=== PATIENT | male | born 1955 | race Hispanic/Latino ===

== ENCOUNTER → 2018-03-04 | Outpatient (CLI) | payer MEDICARE, OTHER ==
[~2018-03-04] MED LIST: ASPIR 8181 MG PO; ASPIRIN EC81 MG PO; CLOPIDOGREL75 MG PO; DIOVAN80 MG PO; FENOFIBRATE145 MG PO; GABAPENTIN400 MG PO; LANTUS100 UNIT/1 SC; LANTUS100 UNITS/ SQ; LYRICA150 MG PO; NATEGLINIDE120 MG PO; NIFEDIPINE ER30 M1 PO; NOVOLOG MI100 UNITS/ SQ; OMEGA 3 1,0001 EACH PO; OMEGA-31000 MG PO; PENTOXIFYLLINE400 MG PO; PROTONIX40 MG/ML PO; STARLIX120 MG PO; TRICOR48 MG PO; TUMS300 MG PO; VITAMIN E400 UNI2 PO; ZESTRIL10 MG PO; [UNRECOGNIZED DRUG - OTHER]; [UNRECOGNIZED DRUG - OTHER] PO; [UNRECOGNIZED DRUG - OTHER] PO
--- NOTE | 2018-03-04 14:19 | Diagnostic Imaging Report ---
Exam: Right foot series, 3 views. Clinical History: Pressure ulcer in right heel Comparison: None. Findings: 3 views of the right foot. There is normal bone mineralization. Negative for acute, displaced fracture or dislocation. No cortical erosion or destruction. Degenerative changes in the hindfoot/midfoot joints. Extensive vascular calcifications. Soft tissue defect in the posterior aspect of the heel, likely representing the known ulceration. Moderate anterior calcaneal enthesophyte. Impression: 1. Soft tissue defect in the posterior aspect of the heel likely represents the known ulceration. Adjacent bony structures are intact. No cortical destruction or erosion to suggest osteomyelitis. 2. Extensive vascular calcifications. Signed by: Dr. Trent Bush M.D. on 03/04/2018 2:15 PM
== END ==
LOC: RAD 12:40
PROVIDERS: ATTEND Family Medicine Adult Medicine
DX: L89.610 Pressure ulcer of right heel, unstageable (principal)

== ENCOUNTER 2018-03-11 13:00 | Outpatient (RCR) | payer MEDICARE, OTHER | END 2018-03-19 | LOC: WCC 13:00 | PROVIDERS: ATTEND Family Medicine Adult Medicine | DX: E11.65 Type 2 diabetes mellitus with hyperglycemia (principal); E11.40 Type 2 diabetes mellitus with diabetic neuropathy, unspecified; E11.621 Type 2 diabetes mellitus with foot ulcer; L89.610 Pressure ulcer of right heel, unstageable; L97.528 Non-pressure chronic ulcer of other part of left foot with other specified severity; I79.8 Other disorders of arteries, arterioles and capillaries in diseases classified elsewhere; H54.8 Legal blindness, as defined in USA; N18.6 End stage renal disease; I10 Essential (primary) hypertension; E78.00 Pure hypercholesterolemia, unspecified | CPT/HCPCS: 36415; 82948 ==

== ENCOUNTER 2018-07-22 12:05 | Inpatient (IN) | payer MEDICARE, OTHER ==
[~2018-07-22] VITALS: Ht 177.8 cm; Wt 106.3 kg
--- OUTSIDE RECORDS SUMMARY | 2018-07-22 12:07 | XMS REPORT | Clinical Summary ---
Author Author [facility] Address Unknown Phone Unavailable Care Team Providers Care Lang Interpreter Name Role Phone Zuhair Ellis PCP Allergies Comments Active Allergy Reactions Severity Noted Date bandaids Adhesive Other (See High 08/06/2012 Comments) Medications End Date Status Medication Sig Dispensed Refills Start Date Active insulin glargine (LANTUS) Inject 12 0 100 unit/mL injection Units subcutaneousl y nightly Pt states that he uses 12-20 units based upon his BS and diet. Active sevelamer (RENVELA) 800 Take 3,200 mg 0 mg tablet by mouth 3 (three) times daily with meals Taking 3 with each meal and 1 with snack. Active nateglinide (STARLIX) 120 Take 120 mg 0 MG tablet by mouth 3 (three) times daily before meals. Active gabapentin (NEURONTIN) Take 300 mg 0 300 MG capsule by mouth daily . Active aspirin 81 MG EC tablet Take 81 mg by 0 mouth daily. Active OMEGA-3/DHA/EPA/FISH OIL Take 1 g by 0 (FISH OIL-OMEGA-3 FATTY mouth 2 (two) ACIDS) 300-1,000 mg times daily . capsule Active valsartan (DIOVAN) 80 MG Take 160 mg 0 tablet by mouth daily as needed (Only takes about once a week if/when the BP is greater than 150 systolic) . Active insulin aspart (NOVOLOG) Inject 10 0 100 unit/mL InPn Units subcutaneousl y 2 (two) times daily Pt reports that he only takes from 8-15 units based upon the BS. Active cholecalciferol (VITAMIN Take 1,000 0 D3) 1,000 unit tablet Units by mouth daily. Active pantoprazole (PROTONIX) Take 40 mg by 0 40 MG tablet mouth daily. Active pentoxifylline (TRENTAL) Take 400 mg 0 400 mg CR tablet by mouth 3 (three) times daily with meals. Active fenofibrate (TRICOR) 48 Take 48 mg by 0 MG tablet mouth daily. 09/08/2017 Discontinued ciprofloxacin HCl (CIPRO) Take 500 mg 0 500 MG tablet by mouth 2 (two) times daily. 09/08/2017 Discontinued clopidogrel (PLAVIX) 300 Take 75 mg by 0 mg Tab mouth once. Active Problems Problem Noted Date Pre-transplant evaluation for chronic kidney disease 12/02/2016 Last Assessment & Plan: He is an acceptable candidate for kidney transplant. Kidney will have to be placed on the right secondary to his extensive vascular disease on the left. The left great big toe is healed but still appears to be a chronic callus. Peripheral artery disease 05/05/2016 Last Assessment & Plan: Continue outpatient with podiatry for SOURAV. Ischemic ulcer diabetic foot 05/05/2016 Overview: Left great toe neuro-ischemic ulcer Obese 01/22/2016 Overview: Needs to reduce weight to target weight of 240 with improved diet and exercise. L ast Assessment & Plan: He was encouraged to monitor his intake and to exercise as tolerated. CAD (coronary artery disease) 06/28/2015 Last Assessment & Plan: Patient needs a CTA to evaluate for runoffs once he achieves his weight goal. He will also be at increased risk of bleeding because he is on Plavix. ESRD (end stage renal disease) Last Assessment & Plan: ESRD secondary to DM/HTN. He has required hemodialysis for 6 years and does not produce urine. DM (diabetes mellitus) Last Assessment & Plan: Diabetes management per primary care physician. Retinopathy HTN (hypertension) Last Assessment & Plan: Continue current management. PAD (peripheral artery disease) Retinopathy Encounters Care Team Description Date Type Specialty Lindsey Arroyo RN Waitlist Maintenance 05/10/2018 Telephone Transplant Lindsey Arroyo RN Waitlist Maintenance 03/03/2018 Telephone Transplant Lindsey Arroyo RN Waitlist Maintenance 12/28/2017 Telephone Transplant Lindsey Arroyo RN 10/15/2017 Documentation Transplant OCleopatra Montgomery MD ESRD (end stage renal disease) (HCC); Patient awaiting renal transplant; Type 2 diabetes mellitus with other kidney complication, unspecified usp insulin use status (HCC) 10/14/2017 Orders Only Lab Maylin Sandoval MD 10/10/2017 Orders Only Cleopatra Vergara MD ESRD (end stage renal disease) (HCC); Patient awaiting renal transplant; Type 2 diabetes mellitus with other kidney complication, unspecified usp insulin use status (HCC) 09/08/2017 Orders Only Transplant Hepatology Iliana Garcia MD Etheridge, Whitson B., MD ESRD (end stage renal disease) (HCC) (Primary Dx) 09/08/2017 Evaluation Transplant Iliana Garcia MD Encounter for preprocedural cardiovascular examination ; ESRD (end stage renal disease) (HCC); Patient awaiting renal transplant; Type 2 diabetes mellitus with other kidney complication, unspecified local intermodal truck driver insulin use status (HCC) 09/08/2017 Hospital Radiology Encounter Cleopatra Vergara MD ESRD (end stage renal disease) (HCC); Patient awaiting renal transplant; Type 2 diabetes mellitus with other kidney complication, unspecified usp insulin use status (HCC) 09/03/2017 Orders Only Lab ESRD (end stage renal disease) (HCC) (Primary Dx); Patient awaiting renal transplant; Type 2 diabetes mellitus with other kidney complication, unspecified local intermodal truck driver insulin use status (HCC) 08/18/2017 Orders Only Lab Xu, Eda 08/11/2017 Documentation Transplant Lindsey Arroyo RN 08/03/2017 Orders Only Transplant Xu, Eda 07/29/2017 Documentation Transplant Lindsey Arroyo, RN ESRD (end stage renal disease) (HCC) (Primary Dx); Patient awaiting renal transplant; Type 2 diabetes mellitus with other kidney complication, unspecified usp insulin use status (HCC); Encounter for preprocedural cardiovascular examination 07/27/2017 Orders Only Transplant Harshil Bhatt MD 07/27/2017 Lab Requisition Lab Harshil Bhatt MD 07/23/2017 Lab Requisition Lab after 07/21/2017 Social History Date Tobacco Use Types Packs/Day Years Used Quit: 04/22/2003 Former Smoker Smokeless Tobacco: Never Used Alcohol Use Drinks/Week oz/Week Comments No Sex Assigned at Date Recorded Not on file Industry Job Start Date Occupation Not on file Not on file Not on file Travel End Travel History Travel Start No recent travel history available. Last Filed Vital Signs Time Taken Vital Sign Reading 09/08/2017 2:59 PM GLASS CHECKER Blood Pressure 159/75 09/08/2017 2:59 PM GLASS CHECKER Pulse 76 09/08/2017 2:59 PM GLASS CHECKER Temperature 36.7 C (98.1 F) 09/08/2017 2:59 PM GLASS CHECKER Respiratory Rate 18 - Oxygen Saturation - - Inhaled Oxygen - Concentration 09/08/2017 2:59 PM GLASS CHECKER Weight 110.9 kg (244 lb 9.6 oz) 09/08/2017 2:59 PM GLASS CHECKER Height 177.2 cm (5' 9.75") 09/08/2017 2:59 PM GLASS CHECKER Body Mass Index 35.35 Plan of Treatment Health Maintenance Due Date Last Done Comments INFLUENZA VACCINE 04/19/2018 Implants Device Identifier Shelf Expiration Date Model / Serial / Lot Implanted Type Area Manufactur er 09/16/2017 [id number] / / [id number] Closure Sys Perclose Progl 6fr Cardiovasc SWEENEY [id number] - [id number] sara LAB:VASC Implanted: Qty: 1 on 03/27/2016 by Blanquita Dozier MD 09/16/2017 [id number] / / [id number] Device Clsr Angio-Seal Vip 6fr Cardiovasc N/A: Groin ST RAMESH [id number] - [id number] [id number] MED:CARDIA Implanted: Qty: 1 on 11/20/2016 by Blanquita Mckeon MD 09/06/2017 [id number] - 12 / / [id number] Xience Alpine Otw [employer] Implanted: Qty: 1 on 06/28/2015 VASCULAR DEVICE Procedures Comments Procedure Name Priority Date/Time Associated Diagnosis VIRTUAL CROSSMATCH Routine 10/14/2017 ESRD (end stage renal 1:13 PM CDT disease) (HCC) Patient awaiting renal transplant Type 2 diabetes mellitus with other kidney complication, unspecified local intermodal truck driver insulin use status CRSMTCH FLOW 3 SERUM Routine 10/14/2017 ESRD (end stage renal 1:13 PM CDT disease) (HCC) Patient awaiting renal transplant Type 2 diabetes mellitus with other kidney complication, unspecified local intermodal truck driver insulin use status CRSMTCH SEROLOGY FV 3 Routine 10/14/2017 ESRD (end stage renal 1:13 PM CDT disease) (HCC) Patient awaiting renal transplant Type 2 diabetes mellitus with other kidney complication, unspecified usp insulin use status AB SPECIFICITY CLASS I Routine 10/14/2017 ESRD (end stage renal 7:36 AM CDT disease) (HCC) Patient awaiting renal transplant Type 2 diabetes mellitus with other kidney complication, unspecified usp insulin use status FLOW PRA CLASS II WITH Routine 10/14/2017 ESRD (end stage renal REFLEX TO ANTIBODY 7:36 AM CDT disease) (HCC) SPECIFICITY Patient awaiting renal transplant Type 2 diabetes mellitus with other kidney complication, unspecified local intermodal truck driver insulin use status FLOW PRA CLASS I WITH Routine 10/14/2017 ESRD (end stage renal REFLEX TO ANTIBODY 7:36 AM CDT disease) (HCC) SPECIFICITY Patient awaiting renal transplant Type 2 diabetes mellitus with other kidney complication, unspecified usp insulin use status AB SPECIFICITY CLASS I Routine 09/08/2017 ESRD (end stage renal 2:33 PM GLASS CHECKER disease) (HCC) Patient awaiting renal transplant Type 2 diabetes mellitus with other kidney complication, unspecified local intermodal truck driver insulin use status (HCC) PSA Routine 09/08/2017 ESRD (end stage renal 2:33 PM GLASS CHECKER disease) (HCC) Patient awaiting renal transplant Type 2 diabetes mellitus with other kidney complication, unspecified local intermodal truck driver insulin use status (HCC) FLOW PRA CLASS II WITH Routine 09/08/2017 ESRD (end stage renal REFLEX TO ANTIBODY 2:33 PM GLASS CHECKER disease) (HCC) SPECIFICITY Patient awaiting renal transplant Type 2 diabetes mellitus with other kidney complication, unspecified usp insulin use status (HCC) FLOW PRA CLASS I WITH Routine 09/08/2017 ESRD (end stage renal REFLEX TO ANTIBODY 2:33 PM GLASS CHECKER disease) (HCC) SPECIFICITY Patient awaiting renal transplant Type 2 diabetes mellitus with other kidney complication, unspecified local intermodal truck driver insulin use status (HCC) NM CARDIAC PET PERFUSION Routine 09/08/2017 Encounter for REST AND/OR STRESS 2:12 PM GLASS CHECKER preprocedural cardiovascular examination ESRD (end stage renal disease) (HCC) Patient awaiting renal transplant Type 2 diabetes mellitus with other kidney complication, unspecified local intermodal truck driver insulin use status (HCC) TREADMILL Routine 09/08/2017 TOLERANCE(NON-NUCLEAR 1:55 PM GLASS CHECKER TREADMILL) FLOW PRA CLASS II WITH Routine 09/03/2017 ESRD (end stage renal REFLEX TO ANTIBODY 10:23 AM GLASS CHECKER disease) (HCC) SPECIFICITY Patient awaiting renal transplant Type 2 diabetes mellitus with other kidney complication, unspecified usp insulin use status (HCC) FLOW PRA CLASS I WITH Routine 09/03/2017 ESRD (end stage renal REFLEX TO ANTIBODY 10:23 AM GLASS CHECKER disease) (HCC) SPECIFICITY Patient awaiting renal transplant Type 2 diabetes mellitus with other kidney complication, unspecified usp insulin use status (HCC) CRSMTCH FLOW 3 SERUM Routine 09/03/2017 ESRD (end stage renal 10:23 AM GLASS CHECKER disease) (HCC) Patient awaiting renal transplant Type 2 diabetes mellitus with other kidney complication, unspecified local intermodal truck driver insulin use status (HCC) CRSMTCH SEROLOGY FV 3 Routine 09/03/2017 ESRD (end stage renal 10:23 AM GLASS CHECKER disease) (HCC) Patient awaiting renal transplant Type 2 diabetes mellitus with other kidney complication, unspecified local intermodal truck driver insulin use status (HCC) AB SPECIFICITY CLASS I Routine 09/03/2017 ESRD (end stage renal 8:38 AM GLASS CHECKER disease) (HCC) Patient awaiting renal transplant Type 2 diabetes mellitus with other kidney complication, unspecified usp insulin use status (HCC) CRSMTCH FLOW 3 SERUM Routine 08/19/2017 ESRD (end stage renal 5:45 AM GLASS CHECKER disease) (HCC) Patient awaiting renal transplant Type 2 diabetes mellitus with other kidney complication, unspecified usp insulin use status (HCC) CRSMTCH SEROLOGY FV 3 Routine 08/19/2017 ESRD (end stage renal 5:45 AM GLASS CHECKER disease) (HCC) Patient awaiting renal transplant Type 2 diabetes mellitus with other kidney complication, unspecified local intermodal truck driver insulin use status (HCC) CRSMTCH FLOW 3 SERUM Routine 08/18/2017 ESRD (end stage renal 12:09 PM GLASS CHECKER disease) (HCC) Patient awaiting renal transplant Type 2 diabetes mellitus with other kidney complication, unspecified usp insulin use status (HCC) CRSMTCH SEROLOGY FV 3 Routine 08/18/2017 ESRD (end stage renal 12:09 PM GLASS CHECKER disease) (HCC) Patient awaiting renal transplant Type 2 diabetes mellitus with other kidney complication, unspecified usp insulin use status (HCC) FLOW PRA CLASS II WITH Routine 08/18/2017 ESRD (end stage renal REFLEX TO ANTIBODY 12:09 PM GLASS CHECKER disease) (HCC) SPECIFICITY Patient awaiting renal transplant Type 2 diabetes mellitus with other kidney complication, unspecified usp insulin use status (HCC) FLOW PRA CLASS I WITH Routine 08/18/2017 ESRD (end stage renal REFLEX TO ANTIBODY 12:09 PM GLASS CHECKER disease) (HCC) SPECIFICITY Patient awaiting renal transplant Type 2 diabetes mellitus with other kidney complication, unspecified local intermodal truck driver insulin use status (HCC) CRSMTCH FLOW 3 SERUM Routine 08/18/2017 ESRD (end stage renal 12:07 PM GLASS CHECKER disease) (HCC) Patient awaiting renal transplant Type 2 diabetes mellitus with other kidney complication, unspecified local intermodal truck driver insulin use status (HCC) CRSMTCH SEROLOGY FV 3 Routine 08/18/2017 ESRD (end stage renal 12:07 PM GLASS CHECKER disease) (HCC) Patient awaiting renal transplant Type 2 diabetes mellitus with other kidney complication, unspecified local intermodal truck driver insulin use status (HCC) AB SPECIFICITY CLASS I Routine 08/18/2017 ESRD (end stage renal 6:19 AM GLASS CHECKER disease) (HCC) Patient awaiting renal transplant Type 2 diabetes mellitus with other kidney complication, unspecified usp insulin use status (HCC) CRSMTCH FLOW 3 SERUM Routine 07/21/2017 12:00 PM GLASS CHECKER CRSMTCH SEROLOGY FV 3 Routine 07/21/2017 12:00 PM GLASS CHECKER after 07/21/2017 Results * CRSMTCH SEROLOGY FV 3 (10/14/2017 1:13 PM CDT) Only the most recent of 6 results within the time period is included. CDC-XM FV1 AHG AHG [facility] TEST[facility] CDC-XM FV1 AHG RES Neg [facility] CDC-XMFV1 AHG/DTT [facility] TEST[facility] CDC-XMFV1 AHG/DTT RES [facility] TEST[facility] CDC-XM FV2 AHG AHG [facility] TEST[facility] CDC-XM FV2 AHG RES Neg [facility] TEST[facility] CDC-XMFV2 AHG/DTT [facility] CDC-XMFV2 AHG/DTT RES [facility] TEST[facility] CDC-XM FV3 AHG AHG [facility] CDC-XM FV3 AHG RES Neg [facility] CDC-XMFV3 AHG/DTT [facility] CDC-XMFV3 AHG/DTT RES [facility] Crsmtch Serology FV 3 DD [facility] XM: NEGATIVE [facility] Comment UNOS ID [id number] [facility] Donor Name [id number], DD-LOCAL [facility] Specimen Blood Performing Organization Address City/State/Zipcode Phone Number [facility] [address], [address]: [id number], [place] [address] CLIA#[id number] CAP#[id number] UNOS#[id number] [facility] ONE [address], MS: [id number] [place] [address] * VIRTUAL CROSSMATCH (10/14/2017 1:13 PM CDT) [facility] Potential LA [facility] Donor HLA Result A1 A24; B62 B57; Cw9 Cw6; DR7 [facility] DR14; DR52; DQA1*01, 02; DQ9 DQ5; DPA1*01,01; DPB1*02:01, DPB1*04:01 VX DSA (MFI) DSA and MFI [facility] DSA and MFI Result NO DSA FOUND [facility] Virtual XM Virtual XM Result [facility] VX Result CURRENT NEGATIVE [facility] Virtual Crossmatch [facility] Comment UNOS ID [id number] [facility] Donor Name [id number], DD-LOCAL [facility] Specimen Blood Performing Organization Address [facility] Phone Number [facility] ONE [address], MS: [id number], [place] [address] CLIA#[id number] CAP#[id number] UNOS#[id number] [facility] ONE [address], MS: [id number] [place] [address] * CRSMTCH FLOW 3 SERUM (10/14/2017 1:13 PM CDT) Only the most recent of 6 results within the time period is included. T-FXM Serum1 T(IgG) [facility] T-FXM Serum1 Res Neg [facility] B-FXM Serum1 B(IgG) [facility] B-FXM Serum1 Res Neg [facility] T-FXM Serum2 T(IgG) [facility] T-FXM Serum2 Res Neg [facility] B-FXM Serum2 B(IgG) [facility] B-FXM Serum2 Res Neg [facility] T-FXM Serum3 T(IgG) [facility] T-FXM Serum3 Res Neg [facility] B-FXM Serum3 B(IgG) [facility] B-FXM Serum3 Res Neg [facility] Crsmtch Flow Comment DD FLOW XM: NEGATIVE [facility] UNOS ID [id number] [facility] Donor Name [id number], DD-LOCAL [facility] Specimen Blood Performing Organization Address [facility] Phone [facility] TEST[facility] ONE [address], [address]: [id number], [place] [address] CLIA#[id number] CAP#[id number] UNOS#[id number] [facility] TEST[facility] ONE [address], [address]: [id number] [place] [address] * FLOW PRA CLASS II WITH REFLEX TO ANTIBODY SPECIFICITY (10/14/2017 7:36 AM CDT) Only the most recent of 4 results within the time period is included. Flow Class II Percent 0 [facility] Positive Flow Class Report [facility] Comments Specimen Blood Performing Organization Address [facility] Phone Number [facility] TEST[facility] ONE [address], [address]: [id number], [place] [address] CLIA#[id number] CAP#[id number] UNOS#[id number] [facility] TEST[facility] ONE [address], [address]: [id number] [place] [address] * FLOW PRA CLASS I WITH REFLEX TO ANTIBODY SPECIFICITY (10/14/2017 7:36 AM CDT) Only the most recent of 4 results within the time period is included. Flow Class I Percent 12 [facility] TEST[facility] Positive Flow Class Report [facility] Comments Specimen Blood Performing Organization Address City/[facility] Phone Number [facility] TEST[facility] ONE [address], MS: [id number], [place] [address] CLIA#[id number] CAP#[id number] UNOS#[id number] [facility] TEST[facility] [address], [address]: [id number] [place] [address] * AB SPECIFICITY CLASS I (10/14/2017 7:36 AM CDT) Only the most recent of 4 results within the time period is included. AB Specificity Class I NO CLASS I ANTIBODY DETECTED [facility] WITH MFIs > 4000 AB Specificity Titr Class [facility] Report Specimen Blood Performing Organization Address [facility] Phone Number [facility] TEST[facility] ONE [address], MS: [id number], [place] [address] CLIA#[id number] CAP#[id number] UNOS#[id number] [facility] TEST[facility] ONE [address], MS: [id number] [place] [address] * PSA (09/08/2017 2:33 PM GLASS CHECKER) PSA 0.6 0.0 - 4.0 ng/mL [facility] Specimen Blood Performing Organization Address City/[facility] Hospital[facility] Phone Number [facility] [address] [place] [address] [facility] * NM myocardial perfusion PET (rest and stress) (09/08/2017 2:12 PM GLASS CHECKER) Narrative Performed At FINAL REPORT Miira PROCEDURE: Rest/Stress MYOCARDIAL PERFUSION PET with regadenoson\\XA9\\ CPT CODE: 63381 INDICATION: Define extent, severity of known CAD, cardiovascular evaluation prior to renal transplantation HISTORY: Cardiac risk factors: ESRD, diabetes, hypertension, obesity, peripheral vascular disease. Other cardiovascular history: CAD with prior PCI. Recent cardiac symptoms: None. Current cardiovascular-related medications: Aspirin, clopidogrel, losartan. PROTOCOL: Limited low-dose CT imaging was performed for attenuation correction. 40.1 mCi of Rb-82 chloride was injected iv at rest, and gated PET (positron emission tomography) images were obtained. Subsequently, 40.1 mCi of Rb-82 chloride was injected iv at expected peak pharmacologic effect, and gated PET images were obtained. PRELIMINARY STRESS TEST DATA FROM NONINVASIVE CARDIOLOGY: Pharmacologic stress was by 10-second iv infusion of 0.4 mg of regadenoson. Radiotracer was injected 30 seconds after start of stress. Heart rate was 64 beats/min at rest and 75 beats/min (47% of MPHR) at tracer injection. BP was 132/88 mmHg at rest and 145/89 mmHg at tracer injection. Stress was stopped for predetermined endpoint. The patient experienced no symptoms; treatment was not required. Preliminary ECG evaluation revealed sinus rhythm at rest and no ischemic changes with stress. (Final ECG interpretation and other stress and monitoring data are reported separately by Cardiology.) IMAGING FINDINGS: Study quality is good. Images obtained after rest and stress injections show normal LV activity. LV and RV volumes appear normal. Gated images obtained at rest and with stress show normal LV wall motion and thickening. LVEF at rest is 61%. LVEF at stress is 67%. IMPRESSION: 1. Normal study.2. Appropriate pharmacologic stress.3. Normal myocardial perfusion.4. Normal resting LV function. No deterioration of function is noted with pharmacologic stress.5. Normal extracardiac tracer distribution.6. Compared to previous [facility] study report on 05/01/2015, the previously mentioned anterolateral defect is no longer seen. NONINVASIVE RISK STRATIFICATION: The above findings are considered low risk (<1% annual mortality rate) based on the following criterion: - Normal or small myocardial perfusion defect at rest or with stress (JACC. 2012;59(9):857-81.) Signed: Saman Espino MD Report Verified Date/Time:09/08/2017 16:23:27 Reading Location: [address] Reading Room Procedure Note Interface, External Ris In - 09/08/2017 4:25 PM GLASS CHECKER FINAL REPORT PROCEDURE: Rest/Stress MYOCARDIAL PERFUSION PET with regadenoson\\XA9\\ CPT CODE: 18077 INDICATION: Define extent, severity of known CAD, cardiovascular evaluation prior to renal transplantation HISTORY: Cardiac risk factors: ESRD, diabetes, hypertension, obesity, peripheral vascular disease. Other cardiovascular history: CAD with prior PCI. Recent cardiac symptoms: None. Current cardiovascular-related medications: Aspirin, clopidogrel, losartan. PROTOCOL: Limited low-dose CT imaging was performed for attenuation correction. 40.1 mCi of Rb-82 chloride was injected iv at rest, and gated PET (positron emission tomography) images were obtained. Subsequently, 40.1 mCi of Rb-82 chloride was injected iv at expected peak pharmacologic effect, and gated PET images were obtained. PRELIMINARY STRESS TEST DATA FROM NONINVASIVE CARDIOLOGY: Pharmacologic stress was by 10-second iv infusion of 0.4 mg of regadenoson. Radiotracer was injected 30 seconds after start of stress. Heart rate was 64 beats/min at rest and 75 beats/min (47% of MPHR) at tracer injection. BP was 132/88 mmHg at rest and 145/89 mmHg at tracer injection. Stress was stopped for predetermined endpoint. The patient experienced no symptoms; treatment was not required. Preliminary ECG evaluation revealed sinus rhythm at rest and no ischemic changes with stress. (Final ECG interpretation and other stress and monitoring data are reported separately by Cardiology.) IMAGING FINDINGS: Study quality is good. Images obtained after rest and stress injections show normal LV activity. LV and RV volumes appear normal. Gated images obtained at rest and with stress show normal LV wall motion and thickening. LVEF at rest is 61%. LVEF at stress is 67%. IMPRESSION: 1. Normal study. 2. Appropriate pharmacologic stress. 3. Normal myocardial perfusion. 4. Normal resting LV function. No deterioration of function is noted with pharmacologic stress. 5. Normal extracardiac tracer distribution. 6. Compared to previous [facility] study report on 05/01/2015, the previously mentioned anterolateral defect is no longer seen. NONINVASIVE RISK STRATIFICATION: The above findings are considered low risk (<1% annual mortality rate) based on the following criterion: - Normal or small myocardial perfusion defect at rest or with stress (JACC. 2012;59(9):857-81.) Signed: Saman Espino MD Report Verified Date/Time: 09/08/2017 16:23:27 Reading Location: [address] Reading Room Performing Organization Address City/State/Zipcode Phone Number GE RIS * Treadmill tolerance(Non-Nuclear Treadmill) (09/08/2017 1:55 PM GLASS CHECKER) Narrative Performed At Protocol Name Regsmithosbrendan GE MUSE Time In Exercise Phase 00:01:00 Max. Systolic BP 145 mmHg Max Diastolic BP 89 mmHg Max Heart Rate 75 BPM Max Predicted Heart Rate 158 BPM Reason For Termination Predetermined end point Reason for Test Renal Transplant Work Up/Evaluation Target HR Formula (220 - Age)*100% Arrhythmias none Resting ECG Normal sinus rhythm ST Changes No Significant Changes Overall Impression Indeterminate due to pharmacological stress Chest Pain none HR Response To Exercise BP Response To Exercise ASA plavix NOVOLOG STARLIX DIOVAN TRENTAL OMEGA-3 Confirmed by fellow Rocky Huynh ([id number]) on 09/08/2017 2:42:29 PM Confirmed by MD INES, BLANQUITA ([id number]) on 09/11/2017 3:34:20 PM Procedure Note Interface, External Ris In - 09/11/2017 3:34 PM GLASS CHECKER Protocol Name Regadenoson Time In Exercise Phase 00:01:00 Max. Systolic BP 145 mmHg Max Diastolic BP 89 mmHg Max Heart Rate 75 BPM Max Predicted Heart Rate 158 BPM Reason For Termination Predetermined end point Reason for Test Renal Transplant Work Up/Evaluation Target HR Formula (220 - Age)*100% Arrhythmias none Resting ECG Normal sinus rhythm ST Changes No Significant Changes Overall Impression Indeterminate due to pharmacological stress Chest Pain none HR Response To Exercise BP Response To Exercise ASA plavix NOVOLOG STARLIX DIOVAN TRENTAL OMEGA-3 Confirmed by fellow Rocky Huynh ([id number]) on 09/08/2017 2:42:29 PM Confirmed by MD INES, BLANQUITA ([id number]) on 09/11/2017 3:34:20 PM Performing Organization Address City/State/Zipcode Phone Number GE MUSE after 07/21/2017 Insurance Payer Benefit Subscriber ID Type Phone Address Plan / Group MEDICARE MEDICARE A xxxxxxxxxx Medicare B MCR SUPPLEMENT/INDIVIDUAL GENERIC xxxxxxxxxx [employer] MEDICARE SUPPLEMENT Advance Directives For more information, please contact: [facility] [address] [place] [address] Date Inactivated Comments Code Status Date Activated 03/27/2016 9:49 PM Full Code 03/27/2016 7:48 AM This code status was determined by: Patient 06/29/2015 2:43 PM Full Code 06/28/2015 2:51 PM This code status was determined by: Patient 06/28/2015 2:51 PM Full Code 06/28/2015 7:28 AM This code status was determined by: Patient
--- OUTSIDE RECORDS SUMMARY | 2018-07-22 12:08 | XMS REPORT ---
Author [facility] Address Unknown Phone Unavailable Care Team Providers Care Food Supervisor Name Role Phone Harshal STEVENS Unavailable Unavailable AVERY MERCER Unavailable Unavailable Dayan YU Unavailable Unavailable Problems This patient has no known problems. Allergies, Adverse Reactions, Alerts This patient has no known allergies or adverse reactions. Medications This patient has no known medications. Results Test Description Test Time Test Comments Text Results Atomic Results Result Comments FOOT RIGHT COMPLETE 2018-03-04 14:13:00 [place] [address] Patient Name: HUMBERTO BUCHANAN MR #: [id number] : 1955 Age/Sex: 62/M Req #: [id number] Adm Physician: Ordered by: SIRI STEVENS MD Report #: [id number] Location: [facility] Room/Bed: Procedure: [id number] DX/FOOT RIGHT COMPLETE Exam Date: 03/04/18 Exam Time: 1319 REPORT STATUS: Signed Exam: Right foot series, 3 views. Clinical History: Pressure ulcer in right heel Comparison: None. Findings: 3 views of the right foot. There is normal bone mineralization. Negative for acute, displaced fracture or dislocation. No cortical erosion or destruction. Degenerative changes in the hindfoot/midfoot joints. Extensive vascular calcifications. Soft tissue defect in the posterior aspect of the heel, likely representing the known ulceration. Moderate anterior calcaneal enthesophyte. Impression: 1. Soft tissue defect in the posterior aspect of the heel likely represents the known ulceration. Adjacent bony structures are intact. No cortical destruction or erosion to suggest osteomyelitis. 2. Extensive vascular calcifications. Signed by: Dr. Sekou Bush M.D. on 03/04/2018 2:15 PM Dictated By: SEKOU BUSH MD 14 Transcribed By: JAMES on 03/04/181414 COPY TO: SIRI STEVENS MD PSA 2017-09-08 19:51:00 PROSTATE SPECIFIC ANTIGEN (BEAKER) (test sqfz=391) 0.6 ng/mL 0.0-4.0 PET, CARDIAC PERFUSION MULTIPLE STUDIES, REST AND [id number] 16:23:00 Reason for Exam:->mac, esrd, cadFINAL REPORT PROCEDURE: Rest/Stress MYOCARDIAL PERFUSION PET with regadenoson\XA9\ CPT CODE: 39229 INDICATION: Define extent, severity of known CAD, [...] 75 beats/min (47% of MPHR) at tracer injection . BP was 132/88 mmHg at rest and 145/89 mmHg at tracer injection. Stress was sto pped for predetermined endpoint. The patient experienced no symptoms; treatment was not required. Preliminary ECG evaluation revealed sinus rhythm at rest and n o ischemic changes with stress. (Final ECG interpretation and other stress and m onitoring data are reported separately by Cardiology.) IMAGING FINDINGS: St udy quality is good. Images obtained after rest and stress injections show josie l LV activity. LV and RV volumes appear normal. Gated images obtained at rest an d with stress show normal LV wall motion and thickening. LVEF at rest is 61%. LV EF at stress is 67%. IMPRESSION: 1. Normal study. 2. Appropriate pharmacolo gic stress. 3. Normal myocardial perfusion. 4. Normal resting LV function. No deterioration of function is noted with pharmacologic stress. 5. Normal extraca rdiac tracer distribution. 6. Compared to previous [facility] study report on 2014, the previously mentioned anterolateral defect is no longer seen. NONINVA SIVE RISK STRATIFICATION: The above findings are considered low risk (<1% annual mortality rate) based on the following criterion:- Normal or small myocardial perfusion defect at rest or with stress([facility]. 2012;59(9):857-81.) Signed: [facility] Verified Date/Time: 09/08/2017 16:23:27 Reading Location: [address] Reading Room TCH [id number] 09:31:00* Test Item Value Reference Range Comments CRSMTCH LRD RESULT (BEAKER) (test qeqx=9645) See Scanned Report CRSMTCH T+B [id number] 09:31:00* Test Item Value Reference Range Comments CRSMTCH T+B CELLS RESULT (BEAKER) (test jupi=0895) See Scanned Report CRSMTCH T+B [id number] 09:30:00* Test Item Value Reference Range Comments CRSMTCH T+B CELLS RESULT (BEAKER) (test ozym=2838) See Scanned Report CRSMTCH FLOW [id number] 09:30:00* Test Item Value Reference Range Comments CRSMTCH FLOW ADDL RESULT (BEAKER) (test gtza=2979) See Scanned Report CRSMTCH FLOW [id number] 09:29:00* Test Item Value Reference Range Comments CRSMTCH FLOW ADDL RESULT (BEAKER) (test askt=6178) See Scanned Report CRSMTCH [id number] 09:29:00* Test Item Value Reference Range Comments CRSMTCH FLOW RESULT (BEAKER) (test dtbl=4418) CRSMTCH [id number] 09:29:00* Test Item Value Reference Range Comments CRSMTCH LRD RESULT (BEAKER) (test sxfj=5191) See Scanned Report CRSMTCH FLOW [id number] 11:47:00* Test Item Value Reference Range Comments CRSMTCH FLOW ADDL RESULT (BEAKER) (test fzia=1660) See Scanned Report [id number] 11:46:00* Test Item Value Reference Range Comments CRSMTCH-HIST RESULT (BEAKER) (test kzcx=1757) See Scanned Report [id number] 11:45:00* Test Item Value Reference Range Comments CRSMTCH-PRETRANS RESULT (BEAKER) (test nomg=5447) See Scanned Report CRSMTCH FLOW [id number] 11:45:00* Test Item Value Reference Range Comments CRSMTCH FLOW ADDL RESULT (BEAKER) (test nvma=4818) See Scanned Report CRSMTCH [id number] 11:45:00* Test Item Value Reference Range Comments CRSMTCH FLOW RESULT (BEAKER) (test qair=9191) [id number] 11:45:00* Test Item Value Reference Range Comments CRSMTCH-CURRENT RESULT (BEAKER) (test eppk=3327) See Scanned Report CRSMTCH FLOW [id number] 07:34:00* Test Item Value Reference Range Comments CRSMTCH FLOW ADDL RESULT (BEAKER) (test zafe=0879) See Scanned Report CRSMTCH FLOW [id number] 07:32:00* Test Item Value Reference Range Comments CRSMTCH FLOW ADDL RESULT (BEAKER) (test djgi=1919) See Scanned Report CRSMTCH [id number] 07:32:00* Test Item Value Reference Range Comments CRSMTCH FLOW RESULT (BEAKER) (test azqz=8093) [id number] 07:32:00* Test Item Value Reference Range Comments CRSMTCH-CURRENT RESULT (BEAKER) (test vozi=2354) See Scanned Report [id number] 07:32:00* Test Item Value Reference Range Comments CRSMTCH-HIST RESULT (BEAKER) (test hyrl=7135) See Scanned Report [id number] 07:31:00* Test Item Value Reference Range Comments CRSMTCH-PRETRANS RESULT (BEAKER) (test qrmh=7456) See Scanned Report AB SPECIFICITY CLASS [id number] 11:38:00* Test Item Value Reference Range Comments AB SPECIFICITY CLASS I (BEAKER) (test wfxa=4088) DATE OF SERUM (BEAKER) (test mezc=9549) 992842 SERUM # (BEAKER) (test rzeb=6377) 057111 AB SPECIFICITY CLASS [id number] 11:37:00* Test Item Value Reference Range Comments AB SPECIFICITY CLASS I (BEAKER) (test nnrj=6771) DATE OF SERUM (BEAKER) (test tubl=5298) 366107 SERUM # (BEAKER) (test qfyd=6789) 405790 AB SPECIFICITY CLASS [id number] 11:10:00* Test Item Value Reference Range Comments AB SPECIFICITY CLASS I (BEAKER) (test tqds=2909) DATE OF SERUM (BEAKER) (test pnsa=1218) 643299 SERUM # (BEAKER) (test ogky=8744) 598920 [id number] 06:23:00* Test Item Value Reference Range Comments CRSMTCH-HIST RESULT (BEAKER) (test rocx=6067) See Scanned Report CRSMTCH FLOW [id number] 06:23:00* Test Item Value Reference Range Comments CRSMTCH FLOW ADDL RESULT (BEAKER) (test cflw=1691) See Scanned Report [id number] 06:22:00* Test Item Value Reference Range Comments CRSMTCH-PRETRANS RESULT (BEAKER) (test alxp=5611) See Scanned Report CRSMTCH FLOW [id number] 06:22:00* Test Item Value Reference Range Comments CRSMTCH FLOW ADDL RESULT (BEAKER) (test vsee=1870) See Scanned Report CRSMTCH [id number] 06:22:00* Test Item Value Reference Range Comments CRSMTCH FLOW RESULT (BEAKER) (test yaps=7931) [id number] 06:22:00* Test Item Value Reference Range Comments CRSMTCH-CURRENT RESULT (BEAKER) (test iern=6238) See Scanned Report FLOW PRA CLASS I AND [id number] 08:58:00* Test Item Value Reference Range Comments DATE OF SERUM (BEAKER) (test ntuy=3640) 188088 SERUM # (BEAKER) (test laad=6997) 850354 FLOW PRA CLASS I AND II (test zblm=9292) See Scanned Report FLOW PRA CLASS I AND [id number] 13:54:00* Test Item Value Reference Range Comments DATE OF SERUM (BEAKER) (test wxdn=2425) 784342 SERUM # (BEAKER) (test gwzk=7501) 370688 FLOW PRA CLASS I AND II (test vgfr=1403) See Scanned Report FLOW PRA CLASS I AND [id number] 09:52:00* Test Item Value Reference Range Comments DATE OF SERUM (BEAKER) (test yeoy=2043) 143055 SERUM # (BEAKER) (test txvi=9691) 709352 FLOW PRA CLASS I AND II (test uyyi=6789) See Scanned Report AB SPECIFICITY CLASS [id number] 11:24:00* Test Item Value Reference Range Comments DATE OF SERUM (BEAKER) (test vckv=7668) 069907 SERUM # (BEAKER) (test voch=7924) 327916 AB SPECIFICITY CLASS I (BEAKER) (test ratl=5700) See Scanned Report FLOW PRA CLASS I AND [id number] 15:12:00* Test Item Value Reference Range Comments DATE OF SERUM (BEAKER) (test vamn=9921) 430454 SERUM # (BEAKER) (test xxoy=0877) 462088 FLOW PRA CLASS I AND II (test zckc=3665) See Scanned Report CRSMTCH FLOW [id number] 11:44:00* Test Item Value Reference Range Comments CRSMTCH FLOW ADDL RESULT (BEAKER) (test xygi=9860) See Scanned Report CRSMTCH FLOW [id number] 11:43:00* Test Item Value Reference Range Comments CRSMTCH FLOW ADDL RESULT (BEAKER) (test dxuy=7097) See Scanned Report CRSMTCH [id number] 11:43:00* Test Item Value Reference Range Comments CRSMTCH FLOW RESULT (BEAKER) (test obbi=2448) See Scanned Report [id number] 11:43:00* Test Item Value Reference Range Comments CRSMTCH-CURRENT RESULT (BEAKER) (test kiin=3338) See Scanned Report [id number] 11:43:00* Test Item Value Reference Range Comments CRSMTCH-HIST RESULT (BEAKER) (test oyfa=8385) See Scanned Report [id number] 11:43:00* Test Item Value Reference Range Comments CRSMTCH-PRETRANS RESULT (BEAKER) (test xcqt=8673) See Scanned Report CRSMTCH FLOW [id number] 14:31:00* Test Item Value Reference Range Comments CRSMTCH FLOW ADDL RESULT (BEAKER) (test nnah=7399) See Scanned Report CRSMTCH [id number] 14:31:00* Test Item Value Reference Range Comments CRSMTCH FLOW RESULT (BEAKER) (test dbqh=1563) See Scanned Report [id number] 14:31:00* Test Item Value Reference Range Comments CRSMTCH-CURRENT RESULT (BEAKER) (test aiwm=2279) See Scanned Report [id number] 14:31:00* Test Item Value Reference Range Comments CRSMTCH-HIST RESULT (BEAKER) (test lcdi=7863) See Scanned Report CRSMTCH FLOW [id number] 14:31:00* Test Item Value Reference Range Comments CRSMTCH FLOW ADDL RESULT (BEAKER) (test rstz=3276) See Scanned Report [id number] 14:30:00* Test Item Value Reference Range Comments CRSMTCH-PRETRANS RESULT (BEAKER) (test giie=9938) See Scanned Report CRSMTCH FLOW [id number] 15:58:00* Test Item Value Reference Range Comments CRSMTCH FLOW ADDL RESULT (BEAKER) (test bzfd=7080) See Scanned Report [id number] 15:57:00* Test Item Value Reference Range Comments CRSMTCH-PRETRANS RESULT (BEAKER) (test tyil=3185) See Scanned Report CRSMTCH FLOW [id number] 15:57:00* Test Item Value Reference Range Comments CRSMTCH FLOW ADDL RESULT (BEAKER) (test rbzp=5951) See Scanned Report CRSMTCH [id number] 15:57:00* Test Item Value Reference Range Comments CRSMTCH FLOW RESULT (BEAKER) (test oooe=9746) See Scanned Report [id number] 15:57:00* Test Item Value Reference Range Comments CRSMTCH-CURRENT RESULT (BEAKER) (test zeob=7089) See Scanned Report [id number] 15:57:00* Test Item Value Reference Range Comments CRSMTCH-HIST RESULT (BEAKER) (test vaua=2027) See Scanned Report AB SPECIFICITY CLASS [id number] 11:56:00* Test Item Value Reference Range Comments DATE OF SERUM (BEAKER) (test blmq=3843) 457587 SERUM # (BEAKER) (test ejpi=9874) 662846 AB SPECIFICITY CLASS I (BEAKER) (test wido=4212) See Scanned Report CRSMTCH FLOW [id number] 15:50:00* Test Item Value Reference Range Comments CRSMTCH FLOW ADDL RESULT (BEAKER) (test gxfr=7111) See Scanned Report CRSMTCH FLOW [id number] 15:49:00* Test Item Value Reference Range Comments CRSMTCH FLOW ADDL RESULT (BEAKER) (test ooul=0851) See Scanned Report CRSMTCH [id number] 15:49:00* Test Item Value Reference Range Comments CRSMTCH FLOW RESULT (BEAKER) (test mywd=3955) See Scanned Report [id number] 15:49:00* Test Item Value Reference Range Comments CRSMTCH-CURRENT RESULT (BEAKER) (test eezc=4805) See Scanned Report [id number] 15:49:00* Test Item Value Reference Range Comments CRSMTCH-HIST RESULT (BEAKER) (test xswr=6090) See Scanned Report [id number] 15:49:00* Test Item Value Reference Range Comments CRSMTCH-PRETRANS RESULT (BEAKER) (test ghxo=9513) See Scanned Report FLOW PRA CLASS I AND [id number] 15:43:00* Test Item Value Reference Range Comments DATE OF SERUM (BEAKER) (test pivl=6905) 785219 SERUM # (BEAKER) (test kebw=0759) 225930 FLOW PRA CLASS I AND II (test vudb=1947) See Scanned Report CRSMTCH FLOW [id number] 13:00:00* Test Item Value Reference Range Comments CRSMTCH FLOW ADDL RESULT (BEAKER) (test vnlp=1511) See Scanned Report CRSMTCH FLOW [id number] 12:59:00* Test Item Value Reference Range Comments CRSMTCH FLOW ADDL RESULT (BEAKER) (test usfb=7473) See Scanned Report CRSMTCH [id number] 12:59:00* Test Item Value Reference Range Comments CRSMTCH FLOW RESULT (BEAKER) (test wnxq=6711) See Scanned Report [id number] 12:59:00* Test Item Value Reference Range Comments CRSMTCH-CURRENT RESULT (BEAKER) (test bdad=3743) See Scanned Report [id number] 12:59:00* Test Item Value Reference Range Comments CRSMTCH-HIST RESULT (BEAKER) (test pmdr=4876) See Scanned Report [id number] 12:59:00* Test Item Value Reference Range Comments CRSMTCH-PRETRANS RESULT (BEAKER) (test sbdg=3348) See Scanned Report [id number] 12:45:00* Test Item Value Reference Range Comments CRSMTCH-HIST RESULT (BEAKER) (test cqfh=6046) See Scanned Report [id number] 12:45:00* Test Item Value Reference Range Comments CRSMTCH-PRETRANS RESULT (BEAKER) (test pdmt=9984) See Scanned Report CRSMTCH FLOW [id number] 12:45:00* Test Item Value Reference Range Comments CRSMTCH FLOW ADDL RESULT (BEAKER) (test jgog=0180) See Scanned Report CRSMTCH FLOW [id number] 12:44:00* Test Item Value Reference Range Comments CRSMTCH FLOW ADDL RESULT (BEAKER) (test jyvu=8043) See Scanned Report CRSMTCH [id number] 12:44:00* Test Item Value Reference Range Comments CRSMTCH FLOW RESULT (BEAKER) (test hgqj=4730) See Scanned Report [id number] 12:44:00* Test Item Value Reference Range Comments CRSMTCH-CURRENT RESULT (BEAKER) (test pxdr=7142) See Scanned Report AB SPECIFICITY CLASS [id number] 11:29:00* Test Item Value Reference Range Comments DATE OF SERUM (BEAKER) (test pzzv=0936) 847928 SERUM # (BEAKER) (test xkbn=2227) 962972 AB SPECIFICITY CLASS I (BEAKER) (test cszj=7443) See Scanned Report AB SPECIFICITY CLASS [id number] 15:34:00* Test Item Value Reference Range Comments DATE OF SERUM (BEAKER) (test zkit=9612) 438861 SERUM # (BEAKER) (test gseo=4452) 926645 AB SPECIFICITY CLASS I (BEAKER) (test xxsr=2147) See Scanned Report CRSMTCH FLOW [id number] 10:54:00* Test Item Value Reference Range Comments CRSMTCH FLOW ADDL RESULT (BEAKER) (test eqml=9223) See Scanned Report CRSMTCH [id number] 10:54:00* Test Item Value Reference Range Comments CRSMTCH FLOW RESULT (BEAKER) (test kufy=9232) See Scanned Report [id number] 10:54:00* Test Item Value Reference Range Comments CRSMTCH-CURRENT RESULT (BEAKER) (test kmss=1622) See Scanned Report [id number] 10:54:00* Test Item Value Reference Range Comments CRSMTCH-HIST RESULT (BEAKER) (test tvae=8721) See Scanned Report [id number] 10:54:00* Test Item Value Reference Range Comments CRSMTCH-PRETRANS RESULT (BEAKER) (test ftcx=5854) See Scanned Report FLOW PRA CLASS I AND [id number] 10:07:00* Test Item Value Reference Range Comments DATE OF SERUM (BEAKER) (test rozi=3907) 862381 SERUM # (BEAKER) (test dugm=0832) 653123 FLOW PRA CLASS I AND II (test lvmw=6252) See Scanned Report FLOW PRA CLASS I AND [id number] 09:56:00* Test Item Value Reference Range Comments DATE OF SERUM (BEAKER) (test vypn=8405) 477854 SERUM # (BEAKER) (test pbpn=0979) 998586 FLOW PRA CLASS I AND II (test tlki=8505) See Scanned Report FLOW PRA CLASS I AND [id number] 12:49:00* Test Item Value Reference Range Comments DATE OF SERUM (BEAKER) (test aypg=2878) 290877 SERUM # (BEAKER) (test wvvo=1191) 024873 FLOW PRA CLASS I AND II (test vsfj=2848) See Scanned Report AB SPECIFICITY CLASS [id number] 10:56:00* Test Item Value Reference Range Comments DATE OF SERUM (BEAKER) (test xduz=2202) 407941 SERUM # (BEAKER) (test ilug=6533) 783085 AB SPECIFICITY CLASS I (BEAKER) (test zltg=6125) See Scanned Report [id number] 15:14:00* Test Item Value Reference Range Comments CRSMTCH-PRETRANS RESULT (BEAKER) (test lksr=8275) See Scanned Report CRSMTCH FLOW [id number] 15:14:00* Test Item Value Reference Range Comments CRSMTCH FLOW ADDL RESULT (BEAKER) (test ywwk=9500) See Scanned Report CRSMTCH [id number] 15:14:00* Test Item Value Reference Range Comments CRSMTCH FLOW RESULT (BEAKER) (test mksq=6901) See Scanned Report [id number] 15:14:00* Test Item Value Reference Range Comments CRSMTCH-CURRENT RESULT (BEAKER) (test uncp=0472) See Scanned Report [id number] 15:14:00* Test Item Value Reference Range Comments CRSMTCH-HIST RESULT (BEAKER) (test ebfl=9112) See Scanned Report AB SPECIFICITY CLASS [id number] 11:54:00* Test Item Value Reference Range Comments DATE OF SERUM (BEAKER) (test gvcc=2839) 536579 SERUM # (BEAKER) (test klet=9558) 850562 AB SPECIFICITY CLASS I (BEAKER) (test ootp=7399) See Scanned Report FLOW PRA CLASS I AND [id number] 10:51:00* Test Item Value Reference Range Comments DATE OF SERUM (BEAKER) (test utpv=3446) 764982 SERUM # (BEAKER) (test owxz=7330) 989909 FLOW PRA CLASS I AND II (test ybdx=8408) See Scanned Report CRSMTCH FLOW [id number] 10:18:00* Test Item Value Reference Range Comments CRSMTCH FLOW ADDL RESULT (BEAKER) (test uiqp=2542) See Scanned Report CRSMTCH [id number] 10:17:00* Test Item Value Reference Range Comments CRSMTCH FLOW RESULT (BEAKER) (test dhoh=5581) See Scanned Report CRSMTCH FLOW [id number] 10:17:00* Test Item Value Reference Range Comments CRSMTCH FLOW ADDL RESULT (BEAKER) (test zlxt=9155) See Scanned Report [id number] 10:12:00* Test Item Value Reference Range Comments CRSMTCH-PRETRANS RESULT (BEAKER) (test shsr=3533) See Scanned Report [id number] 10:12:00* Test Item Value Reference Range Comments CRSMTCH-CURRENT RESULT (BEAKER) (test jqwb=5646) See Scanned Report [id number] 10:12:00* Test Item Value Reference Range Comments CRSMTCH-HIST RESULT (BEAKER) (test xmbm=7752) See Scanned Report FLOW PRA CLASS I AND [id number] 11:31:00* Test Item Value Reference Range Comments DATE OF SERUM (BEAKER) (test rfsm=9872) 820434 SERUM # (BEAKER) (test mjfk=1092) 498967 FLOW PRA CLASS I AND II (test qvjb=1146) See Scanned Report POTASSIUM-STAT [id number] 06:44:00* Test Item Value Reference Range Comments POTASSIUM (BEAKER) (test dojb=931) 3.9 meq/L 3.6-5.5 POTASSIUM-STAT [id number] 06:29:00* Test Item Value Reference Range Comments POTASSIUM (BEAKER) (test vnod=405) 6.3 meq/L 3.6-5.5 GLUCOSE-STAT [id number] 06:17:00* Test Item Value Reference Range Comments GLUCOSE RANDOM (BEAKER) (test zggt=401) 229 mg/dL 70-110 AB SPECIFICITY CLASS [id number] 12:22:00* Test Item Value Reference Range Comments DATE OF SERUM (BEAKER) (test rjsj=5145) 757334 SERUM # (BEAKER) (test yhfv=0070) 968734 AB SPECIFICITY CLASS I (BEAKER) (test fuvh=5735) See Scanned Report AB SPECIFICITY CLASS [id number] 12:02:00* Test Item Value Reference Range Comments DATE OF SERUM (BEAKER) (test yxst=3612) 379419 SERUM # (BEAKER) (test ypeb=3537) 641712 AB SPECIFICITY CLASS I (BEAKER) (test jyrs=1992) See Scanned Report FLOW PRA CLASS I AND [id number] 12:31:00* Test Item Value Reference Range Comments DATE OF SERUM (BEAKER) (test kdct=6971) 360120 SERUM # (BEAKER) (test eymg=7821) 677361 FLOW PRA CLASS I AND II (test siap=1105) See Scanned Report AB SPECIFICITY CLASS [id number] 07:26:00* Test Item Value Reference Range Comments DATE OF SERUM (BEAKER) (test kloj=5678) 980446 SERUM # (BEAKER) (test tlsx=9821) 75246 AB SPECIFICITY CLASS I (BEAKER) (test oozc=9427) See Scanned Report
[2018-07-22] MEDS ORDERED: SODIUM CHLORIDE 0.9% 1000ML 1,000 ML IV STA (12:16)
[2018-07-22] MEDS ORDERED: VANCOMYCIN 1GM/NS 250 ML 250 ML IV ONE (12:30)
[2018-07-22 14:02] LABS: BASOPHILS # (AUTO) 0.1 (0.0-0.1); BASOPHILS % 0.8 % (0.0-1.0); EOSINOPHILS # (AUTO) 0.4 (0.0-0.4); EOSINOPHILS % 4.4 % (0.0-6.0); HEMATOCRIT 37.6 % (38.2-49.6); HEMOGLOBIN 11.9 g/dL (14.0-18.0); LYMPHOCYTES # (AUTO) 1.7 (1.0-3.2); LYMPHOCYTES % 18.8 % (18.0-39.1); MEAN CORPUSCULAR HEMOGLOBIN 30.7 pg (28-32); MEAN CORPUSCULAR HGB CONC 31.6 g/dL (31-35); MEAN CORPUSCULAR VOLUME 96.9 fL (81-99); MONOCYTES # (AUTO) 0.7 (0.2-0.8); MONOCYTES % 8.1 % (4.4-11.3); NEUTROPHILS # (AUTO) 6.2 (2.1-6.9); NEUTROPHILS % 67.4 % (38.7-80.0); PLATELET COUNT 347 x10e3/uL (140-360); RED BLOOD COUNT 3.88 x10e6/uL (4.3-5.7); RED CELL DISTRIBUTION WIDTH 14.8 % (11.7-14.4)
[2018-07-22 14:09] LABS: INR 0.94; PROTHROMBIN TIME 13.4 seconds (11.9-14.5)
[2018-07-22 14:10] LABS: PARTIAL THROMBOPLASTIN TIME 32.9 seconds (23.8-35.5)
[2018-07-22 14:17] LABS: ALBUMIN 3.4 g/dL (3.5-5.0); ALBUMIN/GLOBULIN RATIO 0.8 (0.8-2.0); ANION GAP 18.5 mmol/L (8-16); CALCIUM 9.7 mg/dL (8.4-10.2); CREATININE, SERUM 7.34 mg/dL (0.72-1.25); POTASSIUM 4.5 mmol/L (3.5-5.1)
[2018-07-22 14:25] LABS: CREATINE KINASE MB 1.1 ng/mL (0-5.0)
[2018-07-22] MEDS ORDERED: ONDANSETRON HCL INJ 2 MG/ML VIAL IV PRN (14:30)
[2018-07-22] MEDS ORDERED: DEXTROSE 50% SYRINGE 50 ML IV PRN (14:30)
[2018-07-22] MEDS: PIPERACILLIN/TAZO 2.25 GM 50 ML IV SCH (14:43)
--- OUTSIDE RECORDS SUMMARY | 2018-07-22 14:44 | XMS REPORT | Clinical Summary ---
Author Author SH[facility] Address Unknown Phone Unavailable Care Team Providers Care Environmental Engineering Manager Name Role Phone Zuhair Ellis PCP Allergies [...] diabetes mellitus with other kidney complication, unspecified nursing home insulin use status (HCC) 10/14/2017 Orders Only Lab Maylin Sandoval MD 10/10/2017 Orders Only Cleopatra Vergara MD ESRD (end stage renal disease) (HCC); Patient awaiting renal transplant; Type 2 diabetes mellitus with other kidney complication, unspecified nursing home insulin use status (HCC) 09/08/2017 Orders Only Transplant Hepatology Iliana Garcia MD Etheridge, Whitson B., MD ESRD (end stage renal disease) (HCC) (Primary Dx) 09/08/2017 Evaluation Transplant Iliana Garcia MD Encounter for preprocedural cardiovascular examination ; ESRD (end stage renal disease) (HCC); Patient awaiting renal transplant; Type 2 diabetes mellitus with other kidney complication, unspecified intermediate school teacher insulin use status (HCC) 09/08/2017 Hospital Radiology Encounter Cleopatra Vergara MD ESRD (end stage renal disease) (HCC); Patient awaiting renal transplant; Type 2 diabetes mellitus with other kidney complication, unspecified nursing home insulin use status (HCC) 09/03/2017 Orders Only Lab ESRD (end stage renal disease) (HCC) (Primary Dx); Patient awaiting renal transplant; Type 2 diabetes mellitus with other kidney complication, unspecified intermediate school teacher insulin use status (HCC) 08/18/2017 Orders Only Lab Xu, Eda 08/11/2017 Documentation Transplant Lindsey Arroyo RN 08/03/2017 Orders Only Transplant Xu, Eda 07/29/2017 Documentation Transplant Lindsey Arroyo, RN ESRD (end stage renal disease) (HCC) (Primary Dx); Patient awaiting renal transplant; Type 2 diabetes mellitus with other kidney complication, unspecified nursing home insulin use status (HCC); Encounter for preprocedural [...] Taken Vital Sign Reading 09/08/2017 2:59 PM SECY Blood Pressure 159/75 09/08/2017 2:59 PM SECY Pulse 76 09/08/2017 2:59 PM SECY Temperature 36.7 C (98.1 F) 09/08/2017 2:59 PM SECY Respiratory Rate 18 - Oxygen Saturation - - Inhaled Oxygen - Concentration 09/08/2017 2:59 PM SECY Weight 110.9 kg (244 lb 9.6 oz) 09/08/2017 2:59 PM SECY Height 177.2 cm (5' 9.75") 09/08/2017 2:59 PM SECY Body Mass Index 35.35 Plan of Treatment Health Maintenance Due Date Last Done Comments INFLUENZA VACCINE 04/19/2018 Implants Device Identifier Shelf Expiration Date Model / Serial / Lot Implanted Type Area Manufactur er 09/16/2017 09113-69 / / [id number] Closure Sys Perclose Progl 6fr Cardiovasc [place] [id number] - [id number] sara LAB:VASC Implanted: Qty: 1 on 03/27/2016 by Blanquita Dozier MD 09/16/2017 [id number] / / [id number] Device Clsr Angio-Seal Vip 6fr Cardiovasc N/A: Groin [facility] RAMESH [id number] - [id number] ulcarole MED:CARDIA Implanted: Qty: 1 on 11/20/2016 by Blanquita Mckeon MD 09/06/2017 [id number] - 12 / / [id number] Xience Alpine Otw [place] Implanted: Qty: 1 on 06/28/2015 VASCULAR DEVICE Procedures Comments Procedure Name Priority Date/Time Associated Diagnosis VIRTUAL CROSSMATCH Routine 10/14/2017 ESRD (end stage renal 1:13 PM CDT disease) (HCC) Patient awaiting renal transplant Type 2 diabetes mellitus with other kidney complication, unspecified intermediate school teacher insulin use status CRSMTCH FLOW 3 SERUM Routine 10/14/2017 ESRD (end stage renal 1:13 PM CDT disease) (HCC) Patient awaiting renal transplant Type 2 diabetes mellitus with other kidney complication, unspecified intermediate school teacher insulin use status CRSMTCH SEROLOGY FV 3 Routine 10/14/2017 ESRD (end stage renal 1:13 PM CDT disease) (HCC) Patient awaiting renal transplant Type 2 diabetes mellitus with other kidney complication, unspecified nursing home insulin use status AB SPECIFICITY CLASS I Routine 10/14/2017 ESRD (end stage renal 7:36 AM CDT disease) (HCC) Patient awaiting renal transplant Type 2 diabetes mellitus with other kidney complication, unspecified nursing home insulin use status FLOW PRA CLASS II WITH Routine 10/14/2017 ESRD (end stage renal REFLEX TO ANTIBODY 7:36 AM CDT disease) (HCC) SPECIFICITY Patient awaiting renal transplant Type 2 diabetes mellitus with other kidney complication, unspecified intermediate school teacher insulin use status FLOW PRA CLASS I WITH Routine 10/14/2017 ESRD (end stage renal REFLEX TO ANTIBODY 7:36 AM CDT disease) (HCC) SPECIFICITY Patient awaiting renal transplant Type 2 diabetes mellitus with other kidney complication, unspecified nursing home insulin use status AB SPECIFICITY CLASS I Routine 09/08/2017 ESRD (end stage renal 2:33 PM SECY disease) (HCC) Patient awaiting renal transplant Type 2 diabetes mellitus with other kidney complication, unspecified intermediate school teacher insulin use status (HCC) PSA Routine 09/08/2017 ESRD (end stage renal 2:33 PM SECY disease) (HCC) Patient awaiting renal transplant Type 2 diabetes mellitus with other kidney complication, unspecified intermediate school teacher insulin use status (HCC) FLOW PRA CLASS II WITH Routine 09/08/2017 ESRD (end stage renal REFLEX TO ANTIBODY 2:33 PM SECY disease) (HCC) SPECIFICITY Patient awaiting renal transplant Type 2 diabetes mellitus with other kidney complication, unspecified nursing home insulin use status (HCC) FLOW PRA CLASS I WITH Routine 09/08/2017 ESRD (end stage renal REFLEX TO ANTIBODY 2:33 PM SECY disease) (HCC) SPECIFICITY Patient awaiting renal transplant Type 2 diabetes mellitus with other kidney complication, unspecified intermediate school teacher insulin use status (HCC) NM CARDIAC PET PERFUSION Routine 09/08/2017 Encounter for REST AND/OR STRESS 2:12 PM SECY preprocedural cardiovascular examination ESRD (end stage renal disease) (HCC) Patient awaiting renal transplant Type 2 diabetes mellitus with other kidney complication, unspecified intermediate school teacher insulin use status (HCC) TREADMILL Routine 09/08/2017 TOLERANCE(NON-NUCLEAR 1:55 PM SECY TREADMILL) FLOW PRA CLASS II WITH Routine 09/03/2017 ESRD (end stage renal REFLEX TO ANTIBODY 10:23 AM SECY disease) (HCC) SPECIFICITY Patient awaiting renal transplant Type 2 diabetes mellitus with other kidney complication, unspecified nursing home insulin use status (HCC) FLOW PRA CLASS I WITH Routine 09/03/2017 ESRD (end stage renal REFLEX TO ANTIBODY 10:23 AM SECY disease) (HCC) SPECIFICITY Patient awaiting renal transplant Type 2 diabetes mellitus with other kidney complication, unspecified nursing home insulin use status (HCC) CRSMTCH FLOW 3 SERUM Routine 09/03/2017 ESRD (end stage renal 10:23 AM SECY disease) (HCC) Patient awaiting renal transplant Type 2 diabetes mellitus with other kidney complication, unspecified intermediate school teacher insulin use status (HCC) CRSMTCH SEROLOGY FV 3 Routine 09/03/2017 ESRD (end stage renal 10:23 AM SECY disease) (HCC) Patient awaiting renal transplant Type 2 diabetes mellitus with other kidney complication, unspecified intermediate school teacher insulin use status (HCC) AB SPECIFICITY CLASS I Routine 09/03/2017 ESRD (end stage renal 8:38 AM SECY disease) (HCC) Patient awaiting renal transplant Type 2 diabetes mellitus with other kidney complication, unspecified nursing home insulin use status (HCC) CRSMTCH FLOW 3 SERUM Routine 08/19/2017 ESRD (end stage renal 5:45 AM SECY disease) (HCC) Patient awaiting renal transplant Type 2 diabetes mellitus with other kidney complication, unspecified nursing home insulin use status (HCC) CRSMTCH SEROLOGY FV 3 Routine 08/19/2017 ESRD (end stage renal 5:45 AM SECY disease) (HCC) Patient awaiting renal transplant Type 2 diabetes mellitus with other kidney complication, unspecified intermediate school teacher insulin use status (HCC) CRSMTCH FLOW 3 SERUM Routine 08/18/2017 ESRD (end stage renal 12:09 PM SECY disease) (HCC) Patient awaiting renal transplant Type 2 diabetes mellitus with other kidney complication, unspecified nursing home insulin use status (HCC) CRSMTCH SEROLOGY FV 3 Routine 08/18/2017 ESRD (end stage renal 12:09 PM SECY disease) (HCC) Patient awaiting renal transplant Type 2 diabetes mellitus with other kidney complication, unspecified nursing home insulin use status (HCC) FLOW PRA CLASS II WITH Routine 08/18/2017 ESRD (end stage renal REFLEX TO ANTIBODY 12:09 PM SECY disease) (HCC) SPECIFICITY Patient awaiting renal transplant Type 2 diabetes mellitus with other kidney complication, unspecified nursing home insulin use status (HCC) FLOW PRA CLASS I WITH Routine 08/18/2017 ESRD (end stage renal REFLEX TO ANTIBODY 12:09 PM SECY disease) (HCC) SPECIFICITY Patient awaiting renal transplant Type 2 diabetes mellitus with other kidney complication, unspecified intermediate school teacher insulin use status (HCC) CRSMTCH FLOW 3 SERUM Routine 08/18/2017 ESRD (end stage renal 12:07 PM SECY disease) (HCC) Patient awaiting renal transplant Type 2 diabetes mellitus with other kidney complication, unspecified intermediate school teacher insulin use status (HCC) CRSMTCH SEROLOGY FV 3 Routine 08/18/2017 ESRD (end stage renal 12:07 PM SECY disease) (HCC) Patient awaiting renal transplant Type 2 diabetes mellitus with other kidney complication, unspecified intermediate school teacher insulin use status (HCC) AB SPECIFICITY CLASS I Routine 08/18/2017 ESRD (end stage renal 6:19 AM SECY disease) (HCC) Patient awaiting renal transplant Type 2 diabetes mellitus with other kidney complication, unspecified nursing home insulin use status (HCC) CRSMTCH FLOW 3 SERUM Routine 07/21/2017 12:00 PM SECY CRSMTCH SEROLOGY FV 3 Routine 07/21/2017 12:00 PM SECY after 07/21/2017 Results * CRSMTCH SEROLOGY FV 3 (10/14/2017 1:13 PM CDT) Only the most recent of 6 results within the time period is included. CDC-XM FV1 AHG AHG [facility] CDC-XM FV1 AHG RES Neg [facility] CDC-XMFV1 AHG/DTT [facility] CDC-XMFV1 AHG/DTT RES [facility] CDC-XM FV2 AHG AHG [facility] CDC-XM FV2 AHG RES Neg [facility] CDC-XMFV2 AHG/DTT [facility] CDC-XMFV2 AHG/DTT RES [facility] CDC-XM FV3 AHG AHG [facility] CDC-XM FV3 AHG RES Neg [facility] CDC-XMFV3 AHG/DTT [facility] CDC-XMFV3 AHG/DTT RES [facility] Crsmtch Serology FV 3 DD [facility] XM: NEGATIVE [facility] Comment UNOS ID [id number] [facility] Donor Name [id number], DD-LOCAL [facility] Specimen Blood Performing Organization Address City/State/Zipcode Phone Number [facility] [address], [address]: [id number], [place] [address] CLIA#[id number] CAP#[id number] UNOS#[id number] [facility] [address], MS: [id number] [place] [address] * VIRTUAL CROSSMATCH (10/14/2017 1:13 PM CDT) [facility] [place] [facility] Donor HLA Result A1 A24; B62 B57; Cw9 Cw6; DR7 [facility] DR14; DR52; DQA1*01, 02; DQ9 DQ5; DPA1*01,01; DPB1*02:01, DPB1*04:01 VX DSA (MFI) DSA and MFI [facility] DSA and MFI Result NO DSA FOUND [facility] Virtual XM Virtual XM Result [facility] VX Result CURRENT NEGATIVE [facility] Virtual Crossmatch [facility] Comment UNOS ID [id number] [facility] Donor Name [id number], DD-LOCAL [facility] Specimen Blood Performing Organization Address [facility] Phone Number [facility] ONE [address], MS: [id number], [place] [address] CLIA#[id number] CAP#[id number] UNOS#[id number] [facility] ONE [address], MS: [id number] [place] [address] * CRSMTCH FLOW 3 SERUM (10/14/2017 1:13 PM CDT) Only the most recent of 6 results within the time period is included. T-FXM Serum1 T(IgG) [facility] T-FXM Serum1 Res Neg [facility] B-FXM Serum1 B(IgG) [facility] B-FXM Serum1 Res Neg [facility] T-FXM Serum2 T(IgG) [facility] T-FXM Serum2 Res Neg [facility] B-FXM Serum2 B(IgG) [facility] B-FXM Serum2 Res Neg [facility] T-FXM Serum3 T(IgG) [facility] T-FXM Serum3 Res Neg [facility] B-FXM Serum3 B(IgG) [facility] B-FXM Serum3 Res Neg [facility] Crsmtch Flow Comment DD FLOW XM: NEGATIVE [facility] UNOS ID [id number] [facility] Donor Name [id number], DD-LOCAL [facility] Specimen Blood Performing Organization Address [facility] Phone Number [facility] [address], [address]: [id number], [place] [address] CLIA#[id number] CAP#[id number] UNOS#[id number] [facility] [address], [address]: [id number] [place] [address] * FLOW PRA CLASS II WITH REFLEX TO ANTIBODY SPECIFICITY (10/14/2017 7:36 AM CDT) Only the most recent of 4 results within the time period is included. Flow Class II Percent 0 [facility] Positive Flow Class Report [facility] Comments Specimen Blood Performing Organization Address [facility] Centercode Phone Number [facility] [address], [address]: [id number], [place] [address] CLIA#[id number] CAP#[id number] UNOS#[id number] [facility] [address], MS: [id number] [place] [address] * FLOW PRA CLASS I WITH REFLEX TO ANTIBODY SPECIFICITY (10/14/2017 7:36 AM CDT) Only the most recent of 4 results within the time period is included. Flow Class I Percent 12 [facility] Positive Flow Class Report [facility] Comments Specimen Blood Performing Organization Address City/[facility] Centercode Phone Number [facility] [address], MS: [id number], [place] [address] CLIA#[id number] CAP#[id number] UNOS#[id number] [facility] [address], MS: [id number] [place] [address] * AB SPECIFICITY CLASS I (10/14/2017 7:36 AM CDT) Only the most recent of 4 results within the time period is included. AB Specificity Class I NO CLASS I ANTIBODY DETECTED [facility] WITH MFIs > 4000 AB Specificity Titr Class [facility] Report Specimen Blood Performing Organization Address [facility] Phone Number [facility] [address], MS: [id number], [place] [address] CLIA#[id number] CAP#[id number] UNOS#[id number] [facility] [address], MS: [id number] [place] [address] * PSA (09/08/2017 2:33 PM SECY) PSA 0.6 0.0 - 4.0 ng/mL [facility] Specimen Blood Performing Organization Address City/[facility] Centercomt Phone Number [facility] [address] [place] [address] [facility] * NM myocardial perfusion PET (rest and stress) (09/08/2017 2:12 PM SECY) Narrative Performed At FINAL REPORT SYMIC BIOMEDICAL PROCEDURE: Rest/Stress MYOCARDIAL PERFUSION PET with regadenoson\\XA9\\ CPT CODE: 45497 INDICATION: Define extent, severity of known CAD, [...] Normal extracardiac tracer distribution.6. Compared to previous [facility] study report on 05/01/2015, the previously mentioned anterolateral defect is no longer seen. NONINVASIVE RISK STRATIFICATION: The above findings are considered low risk (<1% annual mortality rate) based on the following criterion: - Normal or small myocardial perfusion defect at rest or with stress (JACC. 2012;59(9):857-81.) Signed: Saman Espino MD Report Verified Date/Time:09/08/2017 16:23:27 Reading Location: [address] Reading Room Procedure Note Interface, External Ris In - 09/08/2017 4:25 PM SECY FINAL REPORT PROCEDURE: Rest/Stress MYOCARDIAL PERFUSION PET with regadenoson\\XA9\\ CPT CODE: 64682 INDICATION: Define extent, severity of known CAD, [...] extracardiac tracer distribution. 6. Compared to previous [facility] study report on 05/01/2015, the previously mentioned anterolateral defect is no longer seen. NONINVASIVE RISK STRATIFICATION: The above findings are considered low risk (<1% annual mortality rate) based on the following criterion: - Normal or small myocardial perfusion defect at rest or with stress (JACC. 2012;59(9):857-81.) Signed: Saman Espino MD Report Verified Date/Time: 09/08/2017 16:23:27 Reading Location: [address] Reading Room Performing Organization Address City/State/Zipcode Phone Number GE RIS * Treadmill tolerance(Non-Nuclear Treadmill) (09/08/2017 1:55 PM SECY) Narrative Performed At Protocol Name Regsmithosbrendan GE [...] 2:42:29 PM Confirmed by MD INES, BLANQUITA ([id number]) on 09/11/2017 3:34:20 PM Procedure Note Interface, External Ris In - 09/11/2017 3:34 PM SECY Protocol Name Regadenoson Time In Exercise Phase [...] 2:42:29 PM Confirmed by MD INES, BLANQUITA ([id number]) on 09/11/2017 3:34:20 PM Performing Organization Address City/State/Zipcode Phone Number GE MUSE after 07/21/2017 Insurance Payer Benefit Subscriber ID Type Phone Address Plan / Group MEDICARE MEDICARE A xxxxxxxxxx Medicare B MCR SUPPLEMENT/INDIVIDUAL GENERIC x[place]x [place] Advance Directives For more information, please contact: [facility] [address] [place] [address] Date Inactivated Comments Code Status Date Activated 03/27/2016 9:49 PM Full Code 03/27/2016 7:48 AM This code status was determined by: Patient 06/29/2015 2:43 PM Full Code 06/28/2015 2:51 PM This code status was determined by: Patient 06/28/2015 2:51 PM Full Code 06/28/2015 7:28 AM This code status was determined by: Patient
[2018-07-22] MEDS ORDERED: MORPHINE SULFATE INJ 4 MG/ML INJ IV PRN (14:45)
[2018-07-22 16:30] VITALS: BP 174/74
[2018-07-22] MEDS: INSULIN LISPRO 100 UNIT/1 ML 3ML VIAL SQ SCH ×2 (17:18→20:21)
[2018-07-22 17:23] VITALS: BP 174/74
[2018-07-22] MEDS ORDERED: BENICAR20 MG PO (18:53)
[2018-07-22] MEDS ORDERED: ASPIRIN325 MG PO (18:53)
[2018-07-22] MEDS ORDERED: LEVOCETIRIZINE D5 MG (18:53)
[2018-07-22] MEDS ORDERED: FERROUS SULFAT325 MG (18:53)
[2018-07-22] MEDS ORDERED: PANTOPRAZOLE SO40 MG PO (18:53)
--- NOTE | 2018-07-22 19:45 | NUR ---
received pt sitting in chair with no c/o pain or discomfort, resp even and unlabored, able to verbalize needs, call light in reach
[2018-07-22 20:21] VITALS: BP 149/65
[2018-07-23] VITALS (8 sets, daily range): BP systolic 130–184; BP diastolic 63–85
[2018-07-23] MEDS: PIPERACILLIN/TAZO 2.25 GM 50 ML IV SCH ×2 (00:13→12:40)
[2018-07-23 05:03] LABS: BASOPHILS # (AUTO) 0.1 (0.0-0.1); BASOPHILS % 0.8 % (0.0-1.0); EOSINOPHILS # (AUTO) 0.5 (0.0-0.4); EOSINOPHILS % 5.7 % (0.0-6.0); HEMATOCRIT 34.7 % (38.2-49.6); HEMOGLOBIN 10.7 g/dL (14.0-18.0); LYMPHOCYTES # (AUTO) 1.9 (1.0-3.2); MEAN CORPUSCULAR HEMOGLOBIN 29.6 pg (28-32); MEAN CORPUSCULAR HGB CONC 30.8 g/dL (31-35); MEAN CORPUSCULAR VOLUME 95.9 fL (81-99); MONOCYTES # (AUTO) 0.8 (0.2-0.8); MONOCYTES % 10.3 % (4.4-11.3); NEUTROPHILS # (AUTO) 4.7 (2.1-6.9); NEUTROPHILS % 58.8 % (38.7-80.0); PLATELET COUNT 314 x10e3/uL (140-360); RED BLOOD COUNT 3.62 x10e6/uL (4.3-5.7); RED CELL DISTRIBUTION WIDTH 14.4 % (11.7-14.4)
[2018-07-23 05:32] LABS: ALBUMIN/GLOBULIN RATIO 0.7 (0.8-2.0); ANION GAP 18.7 mmol/L (8-16); CALCIUM 9.1 mg/dL (8.4-10.2); CREATININE, SERUM 8.07 mg/dL (0.72-1.25); POTASSIUM 3.7 mmol/L (3.5-5.1)
[2018-07-23] MEDS: INSULIN LISPRO 100 UNIT/1 ML 3ML VIAL SQ SCH ×5 (07:30→21:42)
--- NOTE | 2018-07-23 07:53 | Consultation ---
DATE OF CONSULTATION: July 23, 2018 REASON FOR CONSULTATION: Gangrenous changes to the 2nd toe, left foot with a grade 3 ulceration, right heel with patient being a diabetic. HISTORY OF PRESENT ILLNESS: A pleasant 62-year-old male who is very well known to me from previous admissions and following up in the office, who presented several weeks ago with discoloration and gangrenous changes noted to the 2nd toe, left foot. The ulceration was debrided down to bone several times. Patient did not get any better. Started having foul smell, but is denying any history of fever, chills, nausea, or vomiting. The distal phalanx is exposed to the ulceration. ALLERGIES: PATIENT DENIES. PAST MEDICAL HISTORY: Remarkable for insulin-dependent diabetes, end-stage renal disease since 2010, hypertension, hypercholesterolemia and with congestive heart failure. PAST SURGICAL HISTORY: Remarkable for a heart stent, balloon angioplasties to both lower extremities. SOCIAL HISTORY: Denies any smoking, drinking or recreational drug use. Lives with sister. Has 3 children. FAMILY HISTORY: Remarkable for diabetes. CURRENT MEDICATIONS: Noted and listed in chart, including IV Zosyn. REVIEW OF SYSTEMS CARDIAC: Denies any palpitations or arrhythmias. RESPIRATORY: Denies any shortness of breath or productive cough. GASTROINTESTINAL: Denies any diarrhea or constipation. PHYSICAL EXAMINATION VITALS: Afebrile, pulse rate 51, respirations 18, blood pressure 182/84, O2 saturation 97%. PODIATRIC PHYSICAL EXAMINATION Reveals the following: VASCULATURE: Pedal pulses to both the DP and PT are diminished to both lower extremities. CFT to all toes less than 4 to 5 seconds. NEUROLOGICAL: Reveals a complete loss of protective sensation when utilizing [place] 5.07 monofilament wire. MUSCULOSKELETAL: Reveals muscle mass to be symmetrical and muscle strength to be 4/5 to all muscle groups. DERMATOLOGICAL: Reveals a grade 2/3 ulceration, right heel, more than 5 cm in diameter. No bone or tendon exposed. Granulation tissue noted. Has a grade 4 ulcer with bone exposed to the 2nd toe, left foot. Ulcer is approximately 2 cm in diameter. LABS: Noted. Has a white blood cell count of 7.96, hemoglobin 10.7, hematocrit 34.7 with a platelet count of 314,000. ASSESSMENT 1. Osteomyelitis, pregangrenous changes noted to the 2nd toe, left foot. 2. Peripheral artery disease. 3. Diabetic neuropathy with a grade 2/3 ulceration, right heel. PLAN: X-rays 3 views of the left foot were ordered. Will start Santyl collagenase followed by diluted wet-to-dry Betadine to both lower extremities. Will continue to let the foot demarcate. Surgical intervention will be done some time next week. Level of amputation to be determined. Job#: [id number] KAYLEEN
--- NOTE | 2018-07-23 08:15 | Diagnostic Imaging Report ---
Exam: Left foot series; 3 views dated 07/23/2018 at 7:47 AM History: Gangrene of the left second digit Comparison: None available Findings: Soft tissue ulcer and wound of the distal second digit is noted. There is also an erosion of the distal phalanx of the second digit. Findings compatible with osteomyelitis. Diffuse vascular calcification is also present. Impression: Soft tissue ulcer and bony erosion of the distal phalanx of the second digit. Signed by: Dr. Walt Metcalf DO on 07/23/2018 8:11 AM
--- NOTE | 2018-07-23 09:09 | NUR ---
dr degroot rounded, gave orders for wound care. stated will continue to have pt on iv abx with wound care and possible procedure next week (thu). contacted [facility] to inquire about pt having dialysis today. spoke with Dhara, stated she would ensure pt on list for today. will continue to monitor and f/u
--- NOTE | 2018-07-23 09:36 | NUR ---
[employer] to bedside to discuss plan of care with patient/family. CM/SW role and care transitions discussed. Anticipated discharge plan discussed along with duration of care. CM/SW discussed patients right to make decisions in care. CM/SW work hours given. Patient lives: with sister, brother, and mom Admit/Transfer: thru ED, from home POA/Emergency contact: son Garret Jones Jr. [phone], daughter Caridad Jones [phone] Current/Previous Home Health: [facility] 3x/week for wound care; would like to resume with their services. Choice letter signed and filed in chart. Copy to pt. PCP/Follow-up Care: PCP Dr. Zuhair Ellis, Podiatry Dr. Manny Rosa Current/Previous DME: uses rollator, has cane also Other Services: HD at [facility] on MWF @ 1230 Employment Status: disabled Areas of Concerns: foot wounds Referral Needs: wound care Education Needs: wound management IMM/MURGUIA given and signed (if applicable): none at this time Goal for discharge: home; family will provide transportation CM/SW left business card at the bedside with contact information. Name and number was also written on the patients whiteboard. Patient verbalized understanding of discussion. CM will follow-up with ongoing discharge and transition of care needs.
[2018-07-23] MEDS: SEVELAMER CARBONATE 800 MG TAB PO SCH ×3 (12:41→21:01)
--- NOTE | 2018-07-23 14:13 | History and Physical ---
CHIEF COMPLAINT: Concerns for underlying osteomyelitis of the foot, diabetic foot ulcer. HPI: This is a 62-year-old male who is known to podiatry, Dr. Rosa, who was sent in by his office due to worsening changes in the 2nd toe of the left foot. According to the records, the patient has had discoloration and gangrenous changes in the 2nd left toe for the last several weeks now. This ulceration was debrided down to the bone several times in the past. He denies any fevers, chills, or any nausea or vomiting. The distal phalanx has ulceration. Denies any chest pain, palpitations, nausea, or vomiting. The patient was seen and evaluated at the bedside on the medical floor. Currently, he is doing well with no other complaints at this time. REVIEW OF SYSTEMS: Pertinent positive is left diabetic foot ulcer. Pertinent negatives are denies any chest pain, palpitations, nausea, vomiting, diarrhea, dysuria, hematuria, frequency, urgency, lightheadedness, syncope, abdominal pain, shortness of breath, palpitations, cough, fever, or . The rest of the 14-point review of systems have been reviewed with the patient and are negative. ALLERGIES: NO KNOWN DRUG ALLERGIES. HOME MEDICATIONS 1. Aspirin 325 mg daily. 2. Fenofibrate 48 mg daily. 3. Iron tablets 325 mg daily. 4. Gabapentin 300 mg daily. 5. He takes insulin and Lantus 4 units at bedtime. 6. Benicar 20 mg daily. 7. Fish oil. 8. Protonix 40 mg daily. 9. 300 mg p.o. t.i.d. PAST MEDICAL HISTORY: Type 2 diabetes, hypertension, morbid obesity, multiple diabetic foot ulcerations. PAST SURGICAL HISTORY: Multiple debridements of diabetic foot ulcers in the past. FAMILY HISTORY: Hypertension and diabetes mellitus. SOCIAL HISTORY: No drugs. No alcohol. No tobacco. PHYSICAL EXAMINATION VITAL SIGNS: Temperature is 96.4, pulse is 70, respiratory rate is 20, blood pressure is 140/68, and pulse ox 93% on room air. GENERAL: Not in acute distress. Alert and oriented times 3. Cooperative on examination. HEENT: Head is normocephalic and atraumatic. Eyes: Pupils equal, round and reactive to light bilaterally. Extraocular movements intact bilaterally. NECK: Supple. Good range of motion. Throat with no evidence of any erythema or exudates in the posterior pharynx. Has poor dentition. PULMONARY: Clear to auscultation bilaterally. No wheezing. No rales. No rhonchi. No crackles appreciated. CARDIOVASCULAR: Positive S1 and S2. No murmurs, rubs or gallops appreciated. ABDOMEN: Soft, nondistended and nontender to palpation. Bowel sounds present. MUSCULOSKELETAL: Strength is 5/5 throughout. No evidence of any muscle deficit on examination. No weakness appreciated. NEUROLOGICAL: Cranial nerves II-XII are grossly intact. No evidence of any neurological deficits on exam. SKIN: Intact. Warm to touch. Good cap refill. PSYCHIATRIC: Normal affect and mood. EXTREMITIES: No edema. Good range of motion throughout. LAB FINDINGS: Shows a white count of 7.9, hemoglobin 10.7, hematocrit 35, and platelets of 314,000. Coagulations were normal. Chemistry: Sodium 135, potassium 3.7, chloride 95, bicarb 75, anion gap of 18, BUN is 44, creatinine 0.07. His albumin was 3. His LFTs were normal. MICROBIOLOGY: Blood cultures are pending. IMAGING STUDIES: Foot x-ray showed soft tissue ulcer with bony erosion of the distal phalanx to the 2nd toe. IMPRESSION 1. Left foot diabetic foot ulcer. 2. Type 2 diabetes. 3. Hypertension. 4. Morbid obesity. 5. Medical noncompliance. PLAN: At this time, continue with IV antibiotics. ID and podiatry were consulted. May need imaging studies further to evaluate. Nephrology consulted for HD treatment. Continue with Renvela for phos binders. Continue antihypertensive medications. Put him on heparin 5000 units subcutaneous b.i.d. for DVT prophylaxis. Job#: [id number] KAYLEEN
--- NOTE | 2018-07-23 15:02 | NUR ---
pt starting dialysis. vs stable. had shower
--- NOTE | 2018-07-23 15:21 | Consultation ---
DATE OF CONSULTATION: July 23, 2018 Mr. Garret Jones is known to me. A 62-year-old gentleman with underlying history of type 2 diabetes with end-organ damage, including diabetic kidney disease, on dialysis, history of diabetic retinopathy, neuropathy, peripheral vascular disease. He has had chronic toe infection and diabetic foot, which Dr. Manny Rosa has been addressing. Presented again with another toe issue. Foot is currently being dressed, and schedule for surgery next week. He denies fever, chills, chest pain, shortness of breath. Has a white count of 7.9 and hemoglobin 10.7. Potassium 3.7, bicarbonate 25, creatinine 8. Other than that, he denies. ALLERGIES: THERE ARE NOT REPORTED DRUG ALLERGIES. CURRENT MEDICATIONS: Patient is on apparently IV fluids which I am going to stop. He received 1 dose of vancomycin and on Zosyn 2.25 q.12 h., ondansetron p.r.n. and Zofran p.r.n. SOCIAL HISTORY: Does not smoke or drink. FAMILY HISTORY: Significant for diabetes. PHYSICAL EXAMINATION GENERAL: Awake, alert and laying supine. No apparent distress. VITALS: Blood pressure of 130/60, pulse rate 80. HEAD AND NECK: Cornea clear. Mucosa moist. Neck veins flat. LUNGS: Relatively clear. HEART: S1 and S2 audible. ABDOMEN: Otherwise soft and nontender. LOWER EXTREMITY EXAMINATION: Shows no edema. IMPRESSION AND PLAN: End-stage renal disease. Plan on hemodialysis. Start phosphorus binders. Erythropoietin. Appropriate diet. Fluid restriction. Protein supplementation. Discussed with the patient. Consider infectious disease consultation. Job#: [id number] KAYLEEN
[2018-07-23] MEDS: PENTOXIFYLLINE 400 MG TAB CR PO SCH ×3 (16:23→21:01)
[2018-07-23] MEDS: NATEGLINIDE 120 MG TAB PO SCH ×3 (16:23→21:01)
--- NOTE | 2018-07-23 17:24 | NUR ---
[id number] meds pt refused since not eating and doing dialysis, per pt will take once finished. insulin refused also.
--- NOTE | 2018-07-23 19:00 | NUR ---
Patient visited in room during nursing rounds. Patient alert and oriented x3. Family at bedside visiting. Currently receiving hemodialysis via left upper arm fistula. Dialysis nurse in room monitoring patient. Gangrenous left 2nd toe covered with gauze dressing appearing clean and dry. Right heel ulcer wound covered with clean gauze and kerlix. Call bray within reach. Will monitor closely.
--- NOTE | 2018-07-23 20:30 | NUR ---
As per report from dialysis nurse, patient total output from dialysis was 4L.
[2018-07-23] MEDS: HEPARIN SOD (PORCINE) 5,000 UNIT/ML VIAL SC SCH (21:41)
[2018-07-23] MEDS: INSULIN DETEMIR 100 UNIT/ML PEN SQ SCH (21:43)
--- NOTE | 2018-07-23 21:46 | NUR ---
Attempted to call Dr. Rosa to possibly obtain wound care orders. Spoke to answering service and was informed will relay message to Dr. Rosa. Awaiting on MD call back. Patient agreed to wait either for phone call or till Dr. Rosa to see patient during rounds in AM (07/24/18).
--- NOTE | 2018-07-23 22:02 | NUR ---
Dr. Valdez called via phone to inform patient was having several diarrheal episodes and that patient is adamant he needs anti-diarrheal medication. Dr. Valdez informed he does not want to be called for such request especially for diarrhea episodes. specifically stated "I don't want to be called about this crap". But still ordered Loperamide 2mg PO q6hr prn for loose stools.
[2018-07-23] MEDS: LOPERAMIDE HCL 2 MG CAP PO PRN (22:35)
[2018-07-24] VITALS (7 sets, daily range): BP systolic 128–138; BP diastolic 60–75
[2018-07-24] MEDS: PIPERACILLIN/TAZO 2.25 GM 50 ML IV SCH (00:17)
[2018-07-24 05:10] LABS: BASOPHILS # (AUTO) 0.1 (0.0-0.1); BASOPHILS % 0.8 % (0.0-1.0); EOSINOPHILS # (AUTO) 0.5 (0.0-0.4); EOSINOPHILS % 5.8 % (0.0-6.0); HEMATOCRIT 35.4 % (38.2-49.6); HEMOGLOBIN 11.1 g/dL (14.0-18.0); LYMPHOCYTES # (AUTO) 1.6 (1.0-3.2); LYMPHOCYTES % 20.4 % (18.0-39.1); MEAN CORPUSCULAR HGB CONC 31.4 g/dL (31-35); MEAN CORPUSCULAR VOLUME 95.7 fL (81-99); MONOCYTES # (AUTO) 0.7 (0.2-0.8); MONOCYTES % 9.4 % (4.4-11.3); NEUTROPHILS % 63.1 % (38.7-80.0); PLATELET COUNT 299 x10e3/uL (140-360); RED CELL DISTRIBUTION WIDTH 14.5 % (11.7-14.4)
[2018-07-24] MEDS: INSULIN LISPRO 100 UNIT/1 ML 3ML VIAL SQ SCH ×4 (07:30→21:45)
[2018-07-24] MEDS ORDERED: COLLAGENASE 5 GM TUBE TOP PRN (08:30)
[2018-07-24] MEDS ORDERED: POVIDONE IODINE 10% 120 ML BTL EXT PRN (08:30)
[2018-07-24] MEDS ORDERED: GABAPENTIN 400 MG CAP PO SCH (09:00)
[2018-07-24] MEDS ORDERED: CEFEPIME HCL 1 GM VIAL IV SCH (09:00)
[2018-07-24] MEDS: SEVELAMER CARBONATE 800 MG TAB PO SCH ×3 (09:12→15:57)
[2018-07-24] MEDS: ASPIRIN 325 MG TAB PO SCH (09:12)
[2018-07-24] MEDS: PENTOXIFYLLINE 400 MG TAB CR PO SCH ×3 (09:13→21:44)
[2018-07-24] MEDS: FENOFIBRATE 48 MG TAB PO SCH (09:13)
[2018-07-24] MEDS: PANTOPRAZOLE SOD 40 MG TABEC PO SCH (09:13)
[2018-07-24] MEDS: NATEGLINIDE 120 MG TAB PO SCH ×3 (09:13→21:44)
[2018-07-24] MEDS: GABAPENTIN 300 MG CAP PO SCH (09:13)
[2018-07-24] MEDS: OMEGA 3 POLYUNSAT FATTY ACIDS 1000 MG SOFTGEL PO SCH (09:13)
[2018-07-24] MEDS: OLMESARTAN 20 MG TAB PO SCH (09:13)
[2018-07-24] MEDS: HEPARIN SOD (PORCINE) 5,000 UNIT/ML VIAL SC SCH ×2 (09:14→21:44)
[2018-07-24] MEDS: CEFEPIME 1GM/NS 0.9% 50 ML 50 ML IV SCH (09:56)
--- NOTE | 2018-07-24 10:25 | NUR ---
Visit made by the Spiritual Care Department Pastoral Visitor, Tere Meadows. PV provided pastoral presence, prayer, hospitality, and supportive listening. Pastoral Visitor informed pt/family of the scope of [employer] and availability. MARIANO SMITH Case Resource Manager Spiritual Care Department O: [phone] Pager: [phone] ([phone] number calling from)
--- NOTE | 2018-07-24 11:32 | Consultation ---
DATE OF CONSULTATION: PATIENT OF: Dr. Hernandez/Dr. Valdez. HISTORY OF PRESENT ILLNESS: Mr. Jones is a 62-year-old gentleman with insulin-dependent diabetes with chronic wounds of the feet. The left second toe apparently started getting worse. He sees Dr. Rosa as an outpatient and which failed outpatient treatment. Patient is admitted to [facility] for evaluation and medical care of his left necrotic toe. PAST MEDICAL HISTORY: Including diabetes, neuropathy, chronic pain, hyperlipidemia, GERD, and end-stage renal disease, on dialysis. ALLERGIES: NO KNOWN ALLERGIES. LABORATORY STUDIES: White count of 7.89, hemoglobin 11.1, platelet count of 299. Creatinine is 0.7. The patient is on dialysis. RADIOLOGY STUDIES: X-ray of the left foot done suggests soft tissue ulcer and body erosion of the distal phalanx of the 2nd digit. REVIEW OF SYSTEMS: No nausea, vomiting, fever, chills, chest pain, shortness of breath. Pain is controlled. PHYSICAL EXAM GENERAL: Alert and oriented, in bed. VITAL SIGNS: Temperature is 96.7, pulse is 65, blood pressure is 128/61, respirations are 20. CVS: S1, S2. CHEST: Equal expansion. Clear to auscultation. No acute distress. ABDOMEN: Soft, nontender. No distention. Bowel sounds positive in 4 quadrants. HEENT: Moist. NECK: No JVD. EXTREMITIES: Right heel ulcer with some bleeding. Left 2nd toe necrotic, malodorous. ASSESSMENT AND PLAN: This is a 62-year-old gentleman with end-stage renal disease on dialysis, diabetes insulin dependent, with progressive worsening of the wounds of his feet as mentioned above. We will change the antibiotics to vancomycin a gram q.h.d. and cefepime gram a day. May need further studies of vasculature evaluation for adequate blood flow. This case was discussed with Dr. Mckeon in detail. Thank you for this consult. DICTATED BY: GADIEL Trujillo Job#: [id number]
--- NOTE | 2018-07-24 14:27 | Progress Note ---
DATE: July 24, 2018 MEDICINE PROGRESS NOTE SUBJECTIVE: Patient is doing well today with no complaints. Awaiting for the consultants to give further recommendations. VITAL SIGNS: She is afebrile. Normotensive. Respiratory rate is good. LABS: CBC normal. Chemistries within normal range except elevated creatinine. Patient is on dialysis. PHYSICAL EXAMINATION GENERAL: Not in acute distress. Alert and oriented x3. Cooperative on examination. HEENT: Head is normocephalic and atraumatic. Eyes: Pupils equal, round and reactive to light bilaterally. Extraocular movements intact bilaterally. NECK: Supple with good range of motion. Throat with no evidence of any erythema or exudates in the posterior pharynx. Has poor dentition. PULMONARY: Clear to auscultation bilaterally. No wheezing. No rales. No rhonchi. No crackles appreciated. CARDIOVASCULAR: Positive S1 and S2. No murmurs, rubs, or gallops appreciated. ABDOMEN: Soft, nondistended, nontender to palpation. Bowel sounds present. MUSCULOSKELETAL: Strength is 5/5 throughout. No evidence of any muscle deficit on examination. No weakness appreciated. NEUROLOGICAL: Cranial nerves II through XII are grossly intact. No evidence of any neurological deficits on exam. SKIN: Intact. Warm to touch. Good cap refill. PSYCHIATRIC: Normal affect and mood. EXTREMITIES: No edema. Good range of motion throughout. IMPRESSION 1. Left diabetic foot ulcer. 2. Type 2 diabetes. 3. Hypertension. 4. Morbid obesity. 5. End-stage renal disease, on hemodialysis. 6. Medical noncompliance. PLAN: Continue with IV antibiotic. ID and podiatry are following accordingly. He is on IV antibiotics. Nephrology consulted for HD treatment. Renvela for phos binders. Heparin for DVT prophylaxis. Continue plan of care. Dr. Hernandez will be available tomorrow to continue plan of care. Job#: [id number] VANESSA
--- NOTE | 2018-07-24 15:39 | Progress Note ---
DATE: July 24, 2018 SUBJECTIVE: Patient seen at bedside. Doing better. Denies any history of fever, chills, nausea, or vomiting. OBJECTIVE VITAL SIGNS: Afebrile, pulse rate 70, respirations 18, blood pressure 129/70, and O2 saturation 98%. EXTREMITIES: Ulceration to the 2nd toe, left lower extremity shows some bone exposed, demarcating, some gangrenous changes noted down to the proximal interphalangeal joint. LABS: Show a white blood cell count of 7.8, hemoglobin 11.1, hematocrit 35.4 with a platelet count of 299. IMPRESSION AND PLAN: We will let the foot demarcate for a couple days before any definitive surgery will be performed. Patient understands amputation will need to be done, level to be determined. Job#: [id number] HUGO
--- NOTE | 2018-07-24 19:03 | NUR ---
Patient visited in room during nursing rounds. Patient alert and oriented x3. Patient with left upper arm fistula. Gangrenous left 2nd toe covered with gauze and kerlix dressing appearing clean and dry. Right heel ulcer wound covered with clean gauze and kerlix. Call bray within reach. Will monitor closely.
[2018-07-24] MEDS: INSULIN DETEMIR 100 UNIT/ML PEN SQ SCH (21:45)
[2018-07-25] VITALS (7 sets, daily range): BP systolic 121–156; BP diastolic 58–73
[2018-07-25] MEDS: INSULIN LISPRO 100 UNIT/1 ML 3ML VIAL SQ SCH ×4 (07:30→21:03)
--- NOTE | 2018-07-25 07:33 | NUR ---
pt resting in bed, no c/o pain or s/s distress. will continue to monitor.
[2018-07-25] MEDS: GABAPENTIN 300 MG CAP PO SCH (09:25)
[2018-07-25] MEDS: OLMESARTAN 20 MG TAB PO SCH (09:25)
[2018-07-25] MEDS: SEVELAMER CARBONATE 800 MG TAB PO SCH ×3 (09:25→16:54)
[2018-07-25] MEDS: OMEGA 3 POLYUNSAT FATTY ACIDS 1000 MG SOFTGEL PO SCH (09:25)
[2018-07-25] MEDS: ASPIRIN 325 MG TAB PO SCH (09:25)
[2018-07-25] MEDS: CEFEPIME 1GM/NS 0.9% 50 ML 50 ML IV SCH (09:25)
[2018-07-25] MEDS: FENOFIBRATE 48 MG TAB PO SCH (09:26)
[2018-07-25] MEDS: LOPERAMIDE HCL 2 MG CAP PO PRN (09:26)
[2018-07-25] MEDS: HEPARIN SOD (PORCINE) 5,000 UNIT/ML VIAL SC SCH ×2 (09:26→21:02)
[2018-07-25] MEDS: NATEGLINIDE 120 MG TAB PO SCH ×3 (09:26→21:01)
[2018-07-25] MEDS: PENTOXIFYLLINE 400 MG TAB CR PO SCH ×3 (09:26→21:01)
[2018-07-25] MEDS: PANTOPRAZOLE SOD 40 MG TABEC PO SCH (09:26)
--- NOTE | 2018-07-25 12:20 | Progress Note ---
DATE: July 25, 2018 SUBJECTIVE: Patient seen at bedside accompanied by daughter. Doing well. Denies any history of fever, chills, nausea, or vomiting. OBJECTIVE VITAL SIGNS: Afebrile, pulse rate 66, respirations 19, blood pressure 139/60, and O2 saturation 98%. EXTREMITIES: Gangrenous changes to the 2nd toe left foot stabilizing. Bone exposed with a grade IV ulcer measuring 1.5 to 2 cm in diameter on the distal aspect of the 2nd toe, left foot. He has a grade III ulcer of the right heel. Pedal pulses diminished. Skin temperature warm and cool to touch. LABS: Note. ASSESSMENT: Osteomyelitis with a grade IV ulcer left and grade III ulcer right. PLAN: Continue local wound care. Continue IV antibiotics. Continue offloading. We will continue to let the foot demarcate before any definitive procedures done. Job#: [id number] DIANA
[2018-07-25] MEDS: VANCOMYCIN 250MG/5ML ORAL SOLN PO SCH ×2 (13:24→16:54)
--- NOTE | 2018-07-25 19:05 | NUR ---
Patient visited in room during nursing rounds. Patient alert and oriented x3. Patient with left upper arm fistula. Gangrenous left 2nd toe covered with gauze and kerlix dressing appearing clean and dry. Right heel ulcer wound covered with clean gauze and kerlix. Patient aware stool sample needed to be collected for C. diff test. Patient adamant he still needs Imodium tonight. Last bowel movement was soft in texture. Call bray within reach. Will monitor closely.
[2018-07-25] MEDS: INSULIN DETEMIR 100 UNIT/ML PEN SQ SCH (21:03)
[2018-07-26] VITALS (8 sets, daily range): BP systolic 131–148; BP diastolic 67–80
[2018-07-26] MEDS: VANCOMYCIN 250MG/5ML ORAL SOLN PO SCH ×2 (05:46)
[2018-07-26] MEDS: INSULIN LISPRO 100 UNIT/1 ML 3ML VIAL SQ SCH ×4 (07:30→21:00)
[2018-07-26] MEDS: PENTOXIFYLLINE 400 MG TAB CR PO SCH ×3 (08:57→20:53)
[2018-07-26] MEDS: FENOFIBRATE 48 MG TAB PO SCH (08:57)
[2018-07-26] MEDS: NATEGLINIDE 120 MG TAB PO SCH ×3 (08:57→20:53)
[2018-07-26] MEDS: CEFEPIME 1GM/NS 0.9% 50 ML 50 ML IV SCH (08:58)
[2018-07-26] MEDS: OLMESARTAN 20 MG TAB PO SCH (08:58)
[2018-07-26] MEDS: PANTOPRAZOLE SOD 40 MG TABEC PO SCH (08:58)
[2018-07-26] MEDS: OMEGA 3 POLYUNSAT FATTY ACIDS 1000 MG SOFTGEL PO SCH (08:58)
[2018-07-26] MEDS: SEVELAMER CARBONATE 800 MG TAB PO SCH ×3 (08:58→17:48)
[2018-07-26] MEDS: GABAPENTIN 300 MG CAP PO SCH (08:58)
[2018-07-26] MEDS: ASPIRIN 325 MG TAB PO SCH (08:58)
--- NOTE | 2018-07-26 09:04 | Progress Note ---
DATE: July 26, 2018 SUBJECTIVE: Patient seen at bedside. Decreased discomfort to both lower extremities. Denies any history of fever, chills, nausea, or vomiting. OBJECTIVE VITALS: Afebrile, pulse rate 65, respirations 18, blood pressure 136/69, O2 saturation 94%. EXTREMITIES: Toe is looking somewhat better dorsally. Still some necrosis plantar with bone exposed. Grade 3 ulceration, right heel also responding very well to local wound care with IV antibiotics. LABS: Noted. White blood cell count 7.89, hemoglobin 11 with a platelet count of 299,000. ASSESSMENT: Osteomyelitis and cellulitis, 2nd toe, left foot. Gangrenous changes with a grade 3 ulcer, right. PLAN: Will continue to let the foot and toe demarcate. Continue IV antibiotics and local wound care. Definitive procedure will be done some time this week. Job#: [id number] MO
[2018-07-26] MEDS: HEPARIN SOD (PORCINE) 5,000 UNIT/ML VIAL SC SCH ×2 (09:36→21:00)
--- NOTE | 2018-07-26 19:05 | NUR ---
Received pt in bed watching tv. No s/s of resp distress. Denies pain at this time. Call light within reach and instructed to call for assistance. Pt verbalized understanding.
[2018-07-26] MEDS ORDERED: SODIUM CHLORIDE 0.9% 1000ML 1,000 ML ONE (20:27)
[2018-07-26] MEDS: INSULIN DETEMIR 100 UNIT/ML PEN SQ SCH (21:00)
--- NOTE | 2018-07-26 22:42 | NUR ---
Received report from dialysis nurse that fistula to L arm is infiltrated. Pressure dressing applied by dialysis nurse and will reschedule dialysis tomorrow am.
[2018-07-27] VITALS (7 sets, daily range): BP systolic 137–161; BP diastolic 63–80
--- NOTE | 2018-07-27 00:14 | NUR ---
PT in bed resting well. No s/s of resp distress. Call light within reach.
[2018-07-27] MEDS: INSULIN LISPRO 100 UNIT/1 ML 3ML VIAL SQ SCH ×4 (07:30→21:55)
[2018-07-27] MEDS: SEVELAMER CARBONATE 800 MG TAB PO SCH ×3 (08:00→16:56)
[2018-07-27] MEDS: NATEGLINIDE 120 MG TAB PO SCH ×3 (08:33→21:38)
[2018-07-27] MEDS: GABAPENTIN 300 MG CAP PO SCH (08:33)
[2018-07-27] MEDS: OMEGA 3 POLYUNSAT FATTY ACIDS 1000 MG SOFTGEL PO SCH (08:33)
[2018-07-27] MEDS: ASPIRIN 325 MG TAB PO SCH (08:33)
[2018-07-27] MEDS: PANTOPRAZOLE SOD 40 MG TABEC PO SCH (08:33)
[2018-07-27] MEDS: FENOFIBRATE 48 MG TAB PO SCH (08:34)
[2018-07-27] MEDS: PENTOXIFYLLINE 400 MG TAB CR PO SCH ×3 (08:34→21:38)
[2018-07-27] MEDS: HEPARIN SOD (PORCINE) 5,000 UNIT/ML VIAL SC SCH ×2 (09:00→21:55)
--- NOTE | 2018-07-27 09:42 | Progress Note ---
DATE: July 27, 2018 SUBJECTIVE: Patient seen at bedside, doing somewhat better, about to get dialysis. OBJECTIVE: Vitals: Afebrile. Pulse rate 65, respirations 18, blood pressure 137/62. O2 saturation 98%. Labs noted. White blood cell count of 7.89, hemoglobin 11.1. Has bone exposed to the 2nd toe, left foot. Toes are starting to look a little bit better. There are some foul smell present and some drainage but seems to be responding very well to the IV antibiotics. Ulceration to the right heel is also better. Granular fibrotic base noted down to muscle. No bone or tendon exposed. ASSESSMENT 1. Grade-3 ulcer, right. 2. Grade-4 ulcer, left. 3. Cellulitis with osteomyelitis and possible abscess. PLAN: Will continue IV antibiotics for a couple more days. Patient will be taken for surgical intervention on Thursday. Amputation level will be determined intraoperatively. Will continue local wound care, offloading and IV antibiotics for now. Job#: [id number]
[2018-07-27] MEDS ORDERED: SODIUM CHLORIDE 0.9% 1000ML 2,000 ML ONE (10:12)
[2018-07-27 10:20] LABS: BASOPHILS # (AUTO) 0.1 (0.0-0.1); BASOPHILS % 0.7 % (0.0-1.0); EOSINOPHILS # (AUTO) 0.4 (0.0-0.4); EOSINOPHILS % 6.3 % (0.0-6.0); HEMATOCRIT 30.4 % (38.2-49.6); HEMOGLOBIN 9.9 g/dL (14.0-18.0); LYMPHOCYTES # (AUTO) 1.3 (1.0-3.2); LYMPHOCYTES % 19.4 % (18.0-39.1); MEAN CORPUSCULAR HEMOGLOBIN 30.4 pg (28-32); MEAN CORPUSCULAR HGB CONC 32.6 g/dL (31-35); MEAN CORPUSCULAR VOLUME 93.3 fL (81-99); MONOCYTES # (AUTO) 0.5 (0.2-0.8); MONOCYTES % 7.4 % (4.4-11.3); NEUTROPHILS # (AUTO) 4.5 (2.1-6.9); NEUTROPHILS % 65.8 % (38.7-80.0); PLATELET COUNT 262 x10e3/uL (140-360); RED BLOOD COUNT 3.26 x10e6/uL (4.3-5.7); RED CELL DISTRIBUTION WIDTH 14.4 % (11.7-14.4)
[2018-07-27 10:53] LABS: ANION GAP 22.1 mmol/L (8-16); CALCIUM 7.8 mg/dL (8.4-10.2); CREATININE, SERUM 12.38 mg/dL (0.72-1.25); POTASSIUM 5.1 mmol/L (3.5-5.1)
[2018-07-27] MEDS: CEFEPIME 1GM/NS 0.9% 50 ML 50 ML IV SCH (16:56)
[2018-07-27] MEDS: OLMESARTAN 20 MG TAB PO SCH (17:03)
--- NOTE | 2018-07-27 19:00 | NUR ---
Received pt in bed watching tv. No s/s of resp distress. Denies pain at this time. Dressing c,d,i and changed prior to shift change. Call light within reach and instructed to call for assistance. Pt verbalized understanding.
[2018-07-27] MEDS: VANCOMYCIN 1GM/NS 250 ML 250 ML IV SCH (19:27)
[2018-07-27] MEDS: INSULIN DETEMIR 100 UNIT/ML PEN SQ SCH (22:00)
[2018-07-28] VITALS (7 sets, daily range): BP systolic 123–159; BP diastolic 55–71
[2018-07-28 04:49] LABS: BASOPHILS # (AUTO) 0.1 (0.0-0.1); BASOPHILS % 1.1 % (0.0-1.0); EOSINOPHILS # (AUTO) 0.4 (0.0-0.4); EOSINOPHILS % 5.4 % (0.0-6.0); HEMATOCRIT 35.1 % (38.2-49.6); HEMOGLOBIN 11.1 g/dL (14.0-18.0); LYMPHOCYTES # (AUTO) 1.7 (1.0-3.2); LYMPHOCYTES % 23.5 % (18.0-39.1); MEAN CORPUSCULAR HEMOGLOBIN 29.8 pg (28-32); MEAN CORPUSCULAR HGB CONC 31.6 g/dL (31-35); MEAN CORPUSCULAR VOLUME 94.4 fL (81-99); MONOCYTES # (AUTO) 0.7 (0.2-0.8); MONOCYTES % 9.2 % (4.4-11.3); NEUTROPHILS # (AUTO) 4.5 (2.1-6.9); NEUTROPHILS % 60.4 % (38.7-80.0); PLATELET COUNT 264 x10e3/uL (140-360); RED BLOOD COUNT 3.72 x10e6/uL (4.3-5.7); RED CELL DISTRIBUTION WIDTH 14.3 % (11.7-14.4)
[2018-07-28] MEDS: INSULIN LISPRO 100 UNIT/1 ML 3ML VIAL SQ SCH ×4 (08:30→21:00)
[2018-07-28] MEDS: VANCOMYCIN 1GM/NS 250 ML 250 ML IV SCH (08:55)
[2018-07-28] MEDS: SEVELAMER CARBONATE 800 MG TAB PO SCH ×3 (09:00→16:07)
--- NOTE | 2018-07-28 09:34 | Progress Note ---
DATE: July 28, 2018 SUBJECTIVE: Patient is doing well. Decreased discomfort to both lower extremities. Denies any history of fever, chills, nausea, or vomiting. OBJECTIVE VITALS: Afebrile, pulse rate 68, respirations 18, blood pressure 126/62, O2 saturation 97%. EXTREMITIES: Second toe looking a little bit better. Ulceration to the right heel also is better. Pedal pulses are diminished. His white blood cell count is 7.4, hemoglobin 11.1, hematocrit 35.1 with a platelet count of 264,000. Blood glucose of 133. ASSESSMENT 1. Peripheral artery disease with a grade 4 ulcer and osteomyelitis, 2nd toe, left foot. 2. Possible abscess with grade 3 ulcer, right foot. PLAN: Will continue local wound care. Continue to let the foot demarcate. Patient will be scheduled for surgical intervention on Thursday. Job#: [id number] SC
[2018-07-28] MEDS: OMEGA 3 POLYUNSAT FATTY ACIDS 1000 MG SOFTGEL PO SCH (09:35)
[2018-07-28] MEDS: PANTOPRAZOLE SOD 40 MG TABEC PO SCH (09:35)
[2018-07-28] MEDS: FENOFIBRATE 48 MG TAB PO SCH (09:35)
[2018-07-28] MEDS: NATEGLINIDE 120 MG TAB PO SCH ×3 (09:35→22:51)
[2018-07-28] MEDS: CEFEPIME 1GM/NS 0.9% 50 ML 50 ML IV SCH (09:35)
[2018-07-28] MEDS: PENTOXIFYLLINE 400 MG TAB CR PO SCH ×3 (09:35→22:51)
[2018-07-28] MEDS: ASPIRIN 325 MG TAB PO SCH (09:35)
[2018-07-28] MEDS: GABAPENTIN 300 MG CAP PO SCH (09:35)
[2018-07-28] MEDS: OLMESARTAN 20 MG TAB PO SCH (09:35)
[2018-07-28] MEDS: HEPARIN SOD (PORCINE) 5,000 UNIT/ML VIAL SC SCH ×2 (09:36→22:51)
--- NOTE | 2018-07-28 09:53 | NUR ---
PT PLACED IN SHOWER
--- NOTE | 2018-07-28 16:20 | NUR ---
CM SPOKE TO DR. GALLEGOS REGARDING PATIENT PLAN OF CARE. PATIENT SCHEDULED FOR SURGICAL INTERVENTION Thursday: AMPUTATION LEVEL DETERMINED INTRAOPERATIVELY. DR. GALLEGOS STATES HE WILL DECIDE PLAN OF CARE THURSDAY POST PROCEDURE WHEN HE IS AWARE OF THE EXTENT OF THE AMPUTATION. CM TO FOLLOW UP ON THURSDAY MORNING.
--- NOTE | 2018-07-28 16:31 | NUR ---
Nutrition Intervention Note RD Recommendation(s) for Physician: - Add 2000 ADA to current diet - Recommend Renal MVI - Consider Vitamin C and Zinc to promote wound healing - Beneprotein 1 packet TID - Jasson 1 packet BID to promote wound healing Plan of Care: RD following, monitoring for tolerance and adequacy Nutrition reason for involvement: LOS RD Assessment 07/28: 62 YOM admitted for gangrene of L great toe with ulcer requiring surgical intervention this coming Thursday. Pt seen today for LOS, sleeping at time of visit with no family at bedside. Unable to obtain nutrition hx at this time. Pt reviewed during am rounds, pt eating 75-100% of meals with no reported GI distress. Pt with surgery scheduled for Thursday. Pt with ESRD on HD, current renal trend noted. Will continue to monitor. Principal Problems/Diagnoses: Gangrene L great toe PMH: DM2, HTN, ESRD on HD, morbid obesity, multiple diabetic foot ulcerations GI: LBM 07/27 Skin: L great toe gangrene with stage IV ulcer per MD, R heel with abscess- hx of unstagable ulcer to R heel Labs: 07/27: na 134, K 5.1, BUN 71, Cr 12.38, Gluc 166 Meds: renvela, protonix, omega 3s, starlix, tricor levemir, humalog, zofran Ht: 70 in Wt: 244 lb BMI: 35 IBW: 166 lb Malnutrition Evaluation (07/28) The patient does not meet criteria for a specified degree of malnutrition at this time. Will re-evaluate at follow-up as appropriate. Nutrition Prescription (Diet Order): Renal Estimated Nutritional Needs: [id number] calories/day (22-25 kcal/kg IBW) 91-113 g protein/day (1.2-1.5 g pro/kg IBW) Diet Adequacy: Meeting calorie needs, Meeting protein needs Diet Education Needs Assessment: Diet education not indicated at this time. Nutrition Care Level: Mod Nutrition Diagnosis: Increased nutrient needs (protein, vitamin, minerals) as related to skin integrity as evidenced by gangrenous foot ulcers requiring surgical interventions. Goal: Patient will meet 75-100% of estimated needs by follow up Progress: N/A Interventions: CHO, mineral modified diet, Commercial beverage, Recommended Modifications, Multivitamin/mineral supplement therapy, Collaboration with other providers Monitoring/Evaluation: Total energy intake, Total protein intake, Modified diet, Liquid supplement Signed: Aixa Savage RD, LD, [facility]
--- NOTE | 2018-07-28 17:47 | NUR ---
DRESSING TO BILATERAL FEET CHANGED.
--- NOTE | 2018-07-28 19:25 | NUR ---
PATIENT RECEIVED. PATIENT IS RESTING IN BED, AAOX3. RESP EVEN AND UNLABORED. NO ACUTE DISTRESS NOTED. PATIENT DENIES OF ANY PAIN OR DISCOMFORT AT THIS TIME. RIGHT AND LEFT FEET DRESSING NOTED, DRY AND INTACT. CALL LIGHT WITHIN REACH. BED LOW/LOCKED. CONTINUE TO MONITOR CLOSELY
[2018-07-28] MEDS: INSULIN DETEMIR 100 UNIT/ML PEN SQ SCH (22:52)
[2018-07-29] VITALS (8 sets, daily range): BP systolic 128–159; BP diastolic 60–74
--- NOTE | 2018-07-29 06:00 | NUR ---
called and requested for patient to have HD today per Dr Rowe ordered
[2018-07-29] MEDS: INSULIN LISPRO 100 UNIT/1 ML 3ML VIAL SQ SCH ×4 (07:30→21:00)
[2018-07-29] MEDS ORDERED: SODIUM CHLORIDE 0.9% 1000ML 2,000 ML ONE (08:49)
[2018-07-29] MEDS: OLMESARTAN 20 MG TAB PO SCH (09:00)
[2018-07-29] MEDS: CEFEPIME 1GM/NS 0.9% 50 ML 50 ML IV SCH ×2 (09:00→15:05)
--- NOTE | 2018-07-29 09:21 | Progress Note ---
DATE: July 29, 2018 SUBJECTIVE: Patient seen at bedside accompanied by daughter. Feeling okay. Denies history fever, chills, nausea, or vomiting. OBJECTIVE VITALS: Afebrile, pulse rate 67, respirations 20, blood pressure 142/65, O2 saturation 97%. EXTREMITIES: Has an ulceration with bone exposed to the 2nd toe, left foot. The toe is looking a little bit better. LABS: Show a white blood cell count of 7.4 and hemoglobin 11.1. ASSESSMENT: Osteomyelitis and abscess with gangrenous changes noted to the 2nd toe, left foot with an ulceration, right heel. Doing better with granular fibrotic base down to muscle. No tendon or bone exposed. PLAN: Patient will be taken for surgical intervention tomorrow. Surgery will consist of I and D of abscess, amputation, partial or complete amputation of toe with rotational flap closure. Patient understands. No warranties or guarantees can be given. If not responsive, may need a more proximal amputation. Will be kept n.p.o. after midnight. Job#: [id number] HI
[2018-07-29] MEDS: ASPIRIN 325 MG TAB PO SCH (09:24)
[2018-07-29] MEDS: HEPARIN SOD (PORCINE) 5,000 UNIT/ML VIAL SC SCH ×2 (09:25→21:00)
[2018-07-29] MEDS: OMEGA 3 POLYUNSAT FATTY ACIDS 1000 MG SOFTGEL PO SCH (09:25)
[2018-07-29] MEDS: GABAPENTIN 300 MG CAP PO SCH (09:25)
[2018-07-29] MEDS: PANTOPRAZOLE SOD 40 MG TABEC PO SCH (09:25)
[2018-07-29] MEDS: NATEGLINIDE 120 MG TAB PO SCH ×3 (09:25→21:47)
[2018-07-29] MEDS: FENOFIBRATE 48 MG TAB PO SCH (09:25)
[2018-07-29] MEDS: PENTOXIFYLLINE 400 MG TAB CR PO SCH ×3 (09:25→21:47)
[2018-07-29] MEDS: SEVELAMER CARBONATE 800 MG TAB PO SCH ×2 (09:26→16:58)
[2018-07-29 11:41] LABS: ALBUMIN/GLOBULIN RATIO 0.8 (0.8-2.0); ANION GAP 22.7 mmol/L (8-16); CALCIUM 8.5 mg/dL (8.4-10.2); CREATININE, SERUM 10.96 mg/dL (0.72-1.25); POTASSIUM 4.7 mmol/L (3.5-5.1)
--- NOTE | 2018-07-29 18:21 | NUR ---
PT IN BED, HAD DIALYSIS TODAY 4.5 LITERS REMOVED. SCHEDULED FOR PROCEDURE TOMORROW BY DR. MEJIA, CONSENT SIGNED.NO DISTRESS NOTED
--- NOTE | 2018-07-29 19:20 | NUR ---
PATIENT RECEIVED. PATIENT IS RESTING IN BED, AAOX3. RESP EVEN AND UNLABORED. NO ACUTE DISTRESS NOTED. PATIENT DENIES OF ANY PAIN OR DISCOMFORT AT THIS TIME. RIGHT AND LEFT FEET DRESSING NOTED, DRY AND INTACT. REMIND PATIENT THAT HE WILL BE NPO BY MID NIGHT FOR SX TOMORROW. CALL LIGHT WITHIN REACH. BED LOW/LOCKED. CONTINUE TO MONITOR CLOSELY
[2018-07-29] MEDS: INSULIN DETEMIR 100 UNIT/ML PEN SQ SCH (21:00)
--- NOTE | 2018-07-29 21:45 | NUR ---
COMPLETE DRESSING CHANGE TO RIGHT HEEL AND LEFT 2ND TOE. PATIENT TOLERATED WELL
[2018-07-30] VITALS (7 sets, daily range): BP systolic 112–163; BP diastolic 55–70
[2018-07-30] MEDS ORDERED: BETAMETHASONE DISODIUM PHOS 6 MG/ML VIAL ONE (06:24)
[2018-07-30] MEDS ORDERED: LIDOCAINE HCL 1% LOCAL INJ 20 ML VIAL ONE (06:25)
[2018-07-30] MEDS ORDERED: BUPIVACAINE HCL 0.5% 10ML MPF VIAL INJ ONE (06:25)
[2018-07-30] MEDS ORDERED: BACITRACIN 50,000 UNIT VIAL ONE (06:25)
[2018-07-30] MEDS ORDERED: BACITRACIN ZINC 15 GM OINT ONE (06:25)
--- NOTE | 2018-07-30 06:27 | NUR ---
PATIENT LEFT THE FLOOR TO OR
[2018-07-30] MEDS ORDERED: MUPIROCIN 2% OINT 22 GM TUBE ONE (06:37)
--- NOTE | 2018-07-30 08:27 | NUR ---
PT BACK ON UNIT FROM OR . LT SECOND TOE AMPUTATION COMPLETED, DRESSING INTACT ,DRY AND CLEAN. PT IS ALERT AND ORIENTED X4. DENIES PAIN, V/S WNL.
--- NOTE | 2018-07-30 09:22 | Operative Report ---
DATE OF PROCEDURE: July 30, 2018 PREOPERATIVE DIAGNOSES 1. Grade 4 ulcer, left foot. 2. Osteomyelitis, 2nd toe, left foot. 3. Gangrene, left foot. 4. Abscess, left foot. POSTOPERATIVE DIAGNOSES 1. Grade 4 ulcer, left foot. 2. Osteomyelitis, 2nd toe, left foot. 3. Gangrene, left foot. 4. Abscess, left foot. OPERATIVE PROCEDURES 1. Incision and drainage of abscess, left foot. 2. Partial amputation of 2nd toe, left foot. 3. Rotational flap closure, left foot. ANESTHESIA: Local with IV sedation. HEMOSTASIS: Esmarch bandage. PROCEDURE IN DETAIL: Patient was taken into the operating room and placed on the operating room table in the supine position. Following IV sedation by the anesthesiologist, approximately 10 mL of 0.5% plain Marcaine were used to achieve local anesthesia to the above-mentioned surgical area. After that, the left lower extremity was then prepped and draped in the usual aseptic manner. The following procedure was then performed. PROCEDURE #1: I and D of abscess, left foot. After an Esmarch bandage was applied up to the ankle joint area, I and D of abscess was done via sharp dissection down to the distal interphalangeal joint, both dorsally and plantarly. The incision was carried down to the distal interphalangeal joint. Abscess was encountered and cultured for aerobic and anaerobic growth. The abscess was I and D down to bone. Secondary to the infection: PROCEDURE #2: Partial amputation, 2nd toe was performed. The toe was then disarticulated at the proximal interphalangeal joint secondary to more necrosis. More I and D had to be performed. Necrotic tissue removed via sharp dissection. Utilizing a bone cutting forceps, the distal half of the proximal phalanx was then cut and excised from the operation site in toto. At this point, the Esmarch bandage was then released, and all ligators or pumpers were bovied or ligated as necessary. The area was then copiously flushed with sterile antibiotic solution and suctioned. PROCEDURE #3: Rotational flap closure. The incision was then carried more proximally, medially and plantarly laterally. A lateral flap was then created and reapproximated utilizing 3-0 nylon in horizontal mattress type fashion. The flap had to be remodeled a couple times to allow for proper closure with minimal skin tension. A sterile dressing was then applied. The patient was then transferred from the OR to the recovery room with vital signs stable and neurovascular status tact. No intraoperative complications were encountered. Blood loss from the surgery was minimal. Patient to remain in hospital until tomorrow getting IV antibiotics. After he gets dialyzed, he is able to go home wearing the surgical shoe, and is to follow up in the office within 1 week. Job#: [id number] IA
[2018-07-30] MEDS: INSULIN LISPRO 100 UNIT/1 ML 3ML VIAL SQ SCH ×5 (09:25→21:00)
[2018-07-30] MEDS: SEVELAMER CARBONATE 800 MG TAB PO SCH ×3 (09:29→17:24)
[2018-07-30] MEDS: ASPIRIN 325 MG TAB PO SCH (09:29)
[2018-07-30] MEDS: CEFEPIME 1GM/NS 0.9% 50 ML 50 ML IV SCH (09:29)
[2018-07-30] MEDS: FENOFIBRATE 48 MG TAB PO SCH (09:30)
[2018-07-30] MEDS: PANTOPRAZOLE SOD 40 MG TABEC PO SCH (09:30)
[2018-07-30] MEDS: OLMESARTAN 20 MG TAB PO SCH (09:30)
[2018-07-30] MEDS: GABAPENTIN 300 MG CAP PO SCH (09:30)
[2018-07-30] MEDS: NATEGLINIDE 120 MG TAB PO SCH ×3 (09:30→22:00)
[2018-07-30] MEDS: PENTOXIFYLLINE 400 MG TAB CR PO SCH ×3 (09:30→21:42)
[2018-07-30] MEDS: HEPARIN SOD (PORCINE) 5,000 UNIT/ML VIAL SC SCH (09:30)
[2018-07-30] MEDS: OMEGA 3 POLYUNSAT FATTY ACIDS 1000 MG SOFTGEL PO SCH (09:30)
--- NOTE | 2018-07-30 10:27 | Diagnostic Imaging Report ---
Exam:Left foot radiographs-2 views History: Gangrene of left toe. Comparison: Left foot radiographs 07/23/2018. Findings: There has been interval amputation of the middle and distal phalanges of the second toe, compared to radiograph on 07/23/2018. Punctate gas and soft tissue edema is present in the proximal aspect of the second toe. No radiographic evidence of osteomyelitis. No evidence of acute fracture or malalignment. The Lisfranc alignment is unremarkable. There are diffuse vascular calcifications. Scattered intertarsal mild degenerative changes. Impression: Status post interval partial amputation of the left second toe. Edema and small amount of gas in the proximal second toe likely related to recent postoperative changes. No definite radiographic evidence of osteomyelitis. Signed by: Dr. Fabian Cotto MD on 07/30/2018 10:23 AM
[2018-07-30] MEDS ORDERED: FENTANYL CITRATE/PF 100MCG/2 ML INJ ONE (15:04)
[2018-07-30] MEDS ORDERED: LIDOCAINE HCL 2% LOCAL INJ 5 ML SDV VIAL INJ ONE (19:44)
[2018-07-30] MEDS ORDERED: PROPOFOL IV EMULSION 10 MG/ML 20 ML VIAL ONE (19:44)
[2018-07-30] MEDS ORDERED: EPHEDRINE SULFATE INJ 50 MG/10 ML SYR ONE (19:44)
[2018-07-30] MEDS ORDERED: ONDANSETRON HCL INJ 2 MG/ML VIAL ONE (19:44)
[2018-07-30] MEDS: INSULIN DETEMIR 100 UNIT/ML PEN SQ SCH (21:00)
--- NOTE | 2018-07-30 21:06 | NUR ---
PT ARRIVING TO UNIT VIA WHEEL CHAIR ,NO DISTRESS NOTED, DENIES NEEDS, CALL LIGHT IN REACH, INSTRUCTED TO CALL WITH NEEDS
[2018-07-31] VITALS (8 sets, daily range): BP systolic 105–171; BP diastolic 55–74
--- NOTE | 2018-07-31 05:53 | NUR ---
PT RESTING IN BED WITH EYES CLOSED, NO DISTRESS NOTED, CALL LIGHT IN REACH
[2018-07-31] MEDS: OLMESARTAN 20 MG TAB PO SCH (05:57)
--- NOTE | 2018-07-31 07:24 | NUR ---
PATIENT IN BED RESTING WITH NO RESPIRATORY DISTRESS OBSERVED. DRESSING DRY AND INTACT TO LEFT FOOT. RIGHT HEEL ULCER WITH DRESSING IN PLACE. BED IN LOWER POSITION, CALL LIGHT AT REACH.
[2018-07-31] MEDS: INSULIN LISPRO 100 UNIT/1 ML 3ML VIAL SQ SCH ×4 (07:30→20:31)
[2018-07-31] MEDS: SEVELAMER CARBONATE 800 MG TAB PO SCH ×3 (08:00→17:47)
[2018-07-31] MEDS: OMEGA 3 POLYUNSAT FATTY ACIDS 1000 MG SOFTGEL PO SCH (09:00)
[2018-07-31] MEDS: PENTOXIFYLLINE 400 MG TAB CR PO SCH ×3 (09:00→20:55)
[2018-07-31] MEDS: NATEGLINIDE 120 MG TAB PO SCH ×3 (09:00→20:55)
[2018-07-31] MEDS: CEFEPIME 1GM/NS 0.9% 50 ML 50 ML IV SCH (09:00)
--- NOTE | 2018-07-31 11:46 | NUR ---
BED SIDE HEMODIALYSIS IN PROGRESS. MD IN TO SEE PATIENT, NO NEW ORDER RECEIVED.
[2018-07-31] MEDS ORDERED: VANCOMYCIN 1GM/NS 250 ML 250 ML IV SCH (12:00)
--- NOTE | 2018-07-31 12:53 | Progress Note ---
DATE: July 31, 2018 NEPHROLOGY FOLLOWUP SUBJECTIVE: Seen in dialysis. Tolerating procedure. OBJECTIVE: VITAL SIGNS: Temperature 97.5, blood pressure 164/74, pulse 64. CHEST: Clear. EXTREMITIES: No edema. Access is patent. ASSESSMENT 1. End-stage renal disease. 2. Type 2 diabetes. 3. End-organ damage. 4. Hypertension. PLAN: Hemodialysis today, 4-hour run, F160 filter. Blood flow rate 400 mL per minute. Dialysis flow rate at 800 mL per minute. Plan to remove 3 to 4 liters of fluid, 2 potassium bath. We will follow along. Job#: [id number] GILDA
[2018-07-31] MEDS: PANTOPRAZOLE SOD 40 MG TABEC PO SCH (14:06)
[2018-07-31] MEDS: GABAPENTIN 300 MG CAP PO SCH (14:06)
[2018-07-31] MEDS: FENOFIBRATE 48 MG TAB PO SCH (14:06)
[2018-07-31] MEDS: ASPIRIN 325 MG TAB PO SCH (14:06)
--- NOTE | 2018-07-31 15:00 | NUR ---
BED SIDE HEMODIALYSIS COMPLETED. 4 LITERS REMOVED PER DIALYSIS NURSE. DRESSING CHANGED TO RIGHT HEEL ULCER. IN BED WITH CALL LIGHT AT REACH.
--- NOTE | 2018-07-31 19:10 | NUR ---
REPORT RECEIVED FROM OFF GOING NURSE, PT RESTING IN BED ALERT AND ORIENTED, FAMILY AT BEDSIDE, NO DISTRESS NOTED, CALL LIGHT IN REACH
[2018-07-31] MEDS: INSULIN DETEMIR 100 UNIT/ML PEN SQ SCH (20:55)
[2018-08-01] VITALS: BP 121/58
[2018-08-01 04:00] VITALS: BP 115/63
--- NOTE | 2018-08-01 05:20 | NUR ---
PT RESTING IN BED WITH EYES CLOSED, NO DISTRESS NOTED, CALL LIGHT IN REACH, RISE AND FALL OF CHEST BREATHING NOTED
--- NOTE | 2018-08-01 07:10 | NUR ---
RECEIVED PATIENT RESTING IN BED. RESPIRATIONS EVEN AND UNLABORED. NO ACUTE DISTRESS NOTED. CALL LIGHT WITHIN REACH. BED IN THE LOWEST POSITION.
[2018-08-01] MEDS: INSULIN LISPRO 100 UNIT/1 ML 3ML VIAL SQ SCH (07:30)
[2018-08-01 07:40] VITALS: BP 108/52
[2018-08-01 07:55] VITALS: BP 108/52
[2018-08-01] MEDS: NATEGLINIDE 120 MG TAB PO SCH (08:55)
[2018-08-01] MEDS: PANTOPRAZOLE SOD 40 MG TABEC PO SCH (08:55)
[2018-08-01] MEDS: SEVELAMER CARBONATE 800 MG TAB PO SCH (08:55)
[2018-08-01] MEDS: OMEGA 3 POLYUNSAT FATTY ACIDS 1000 MG SOFTGEL PO SCH (08:55)
[2018-08-01] MEDS: GABAPENTIN 300 MG CAP PO SCH (08:55)
[2018-08-01] MEDS: ASPIRIN 325 MG TAB PO SCH (08:55)
[2018-08-01] MEDS: PENTOXIFYLLINE 400 MG TAB CR PO SCH (08:55)
[2018-08-01] MEDS: OLMESARTAN 20 MG TAB PO SCH (08:55)
[2018-08-01] MEDS: FENOFIBRATE 48 MG TAB PO SCH (08:55)
--- NOTE | 2018-08-01 09:51 | Discharge Summary ---
PRIMARY CARE PHYSICIAN: Dr. Zuhair Ellis CONSULTANTS 1. Dr. Tavia Mckeon. 2. Dr. Annie Rowe. 3. Dr. Manny Rosa. FINAL DIAGNOSES 1. Infected diabetic, left 2nd toe associated with diabetic toe ulceration and abscess with gangrene. 2. Baseline diabetes type 2, on insulin treatment. 3. Baseline end-stage renal disease, on dialysis. 4. Baseline hypertension and peripheral vascular disease. SUMMARY/HOSPITAL COURSE: This is a 62-year-old male with multiple medical problems as mentioned. The patient came in with left 2nd toe gangrene associated with necrosis, infected diabetic toe ulceration associated with also left foot cellulitis. The patient was given antibiotics. Circulatory workup with adequate flow. The patient does have peripheral vascular disease, but he does have collateral. The patient received IV antibiotics and awaiting for demarcation of the left 2nd toe with necrosis and infection. Subsequently, the patient underwent surgical intervention of left 2nd toe amputation. The patient postoperatively is doing better. He can maintain stability. The patient had surgery on July 30, 2018. Since then, the patient has dialysis. No fever. No leukocytosis. The patient is doing well. He will go home today with the following instructions. DISCHARGE INSTRUCTIONS 1. Resume home medication. 2. Cipro 500 mg daily for 10 days. 3. Ampicillin 5 mg b.i.d. for 10 days. 4. Tylenol No 3. every 6 hours p.r.n. for pain. 5. Zofran ODT 4 mg sublingual every 4 hours p.r.n. for nausea and vomiting. Of note, his wound culture grew out to be gram-negative qiana along with enterococcus species moderately. The patient is otherwise stable. Discharged home today. Follow with Dr. Rosa next week and followup with Dr. Zuhair Ellis, his PCP in approximately 1 to 2 weeks. Patient will continue with his dialysis as an outpatient, schedule the same. Job#: [id number] JEANNE
--- NOTE | 2018-08-01 10:23 | NUR ---
PATIENT WAS PROVIDED CRUTCHES AND TEACHING PROVIDED. PATIENT AND DAUGHTER VERBALIZED UNDERSTANDING.
--- NOTE | 2018-08-01 10:53 | NUR ---
RECEIVED DISCHARGE ORDER FROM MD. PATIENT IN STABLE CONDITION. IV LINE DC'D WITH TIP INTACT AT 1046, PRESSURE APPLIED, NO BLEEDING NOTED. DISCHARGE TEACHING PROVIDED TO PATIENT AND DAUGHTER, THEY BOTH VERBALIZED UNDERSTANDING. ALL DISCHARGE PAPERWORK, PRESCRIPTIONS, AND PERSONAL ITEMS ON HAND INCLUDING CRUTCHES. PATIENT ACCOMPANIED TO PRIVATE AUTO VIA WHEELCHAIR BY STAFF.
== END 2018-08-01 10:56 | disposition home or self-care (01) | DRG 255 ==
LOC: ER 12:05 → ERHOLD 14:42 → MED/SURG2 16:27 → MED/SURG3 07-30 20:10
PROVIDERS: ADMIT Internal Medicine; ATTEND Internal Medicine
PROC: 5A1D70Z Performance of Urinary Filtration, Intermittent, Less than 6 Hours Per Day (ICD-10-PCS; 2018-07-23)
PROC: 0HXNXZZ Transfer Left Foot Skin, External Approach (ICD-10-PCS; 2018-07-30)
PROC: 0Y6S0Z1 Detachment at Left 2nd Toe, High, Open Approach (ICD-10-PCS; principal; 2018-07-30 07:00)
DX: E11.52 Type 2 diabetes mellitus with diabetic peripheral angiopathy with gangrene (principal); L89.613 Pressure ulcer of right heel, stage 3; N18.6 End stage renal disease; I13.2 Hypertensive heart and chronic kidney disease with heart failure and with stage 5 chronic kidney disease, or end stage renal disease; M86.172 Other acute osteomyelitis, left ankle and foot; L03.116 Cellulitis of left lower limb; E11.621 Type 2 diabetes mellitus with foot ulcer; E11.69 Type 2 diabetes mellitus with other specified complication; E11.22 Type 2 diabetes mellitus with diabetic chronic kidney disease; L97.524 Non-pressure chronic ulcer of other part of left foot with necrosis of bone; I50.9 Heart failure, unspecified; E66.01 Morbid (severe) obesity due to excess calories; E78.5 Hyperlipidemia, unspecified; I25.10 Atherosclerotic heart disease of native coronary artery without angina pectoris; E11.40 Type 2 diabetes mellitus with diabetic neuropathy, unspecified; E11.319 Type 2 diabetes mellitus with unspecified diabetic retinopathy without macular edema; H35.30 Unspecified macular degeneration; R53.81 Other malaise; G89.29 Other chronic pain; Z99.2 Dependence on renal dialysis; Z79.4 Long term (current) use of insulin; Z91.19 Patient's noncompliance with other medical treatment and regimen; Z79.82 Long term (current) use of aspirin; Z68.33 Body mass index [BMI] 33.0-33.9, adult; Z95.5 Presence of coronary angioplasty implant and graft; Z95.820 Peripheral vascular angioplasty status with implants and grafts
CPT/HCPCS: 36415; 80048; 80053; 82550; 82553; 82948; 83605; 83690; 84484; 85025; 85610; 85730; 86704; 86705; 86706; 87040; 87071; 87075; 87186; 87205; 87340; 87493; 88304; 88305; 88311; 90962; 93005; 99284; J0692; J0720; J1644; J2001; J2405; J2543; J3370; J7030

== ENCOUNTER → 2019-09-29 | Day surgery (SDC) | payer MEDICARE, OTHER ==
[~2019-09-29] MED LIST changes: +ASPIRIN325 MG PO; +AUGMENTIN 875-1 EACH PO; +BENICAR20 MG PO; +BROMFED DM COU118 ML PO; +CELEBREX100 MG PO; +CELEBREX200 MG PO; +CULTURELLE1 EACH PO; +FENTANYL CITRATE/PF 100MCG/2 ML INJ ONE; +FERROUS SULFAT325 MG; +FERROUS SULFAT325 MG PO; +GLYCOPYRROLATE INJ 0.2 MG/ML VIAL ONE; +LEVOCETIRIZINE D5 MG; +LIDOCAINE HCL 2% LOCAL INJ 5 ML SDV VIAL INJ ONE; +MECLIZINE HCL12.5 MG PO; +MIDAZOLAM HCL 2 MG/2 ML VIAL ONE; +NOVOLIN R100 UNIT/1 SQ; +PANTOPRAZOLE SO40 MG PO; +PROPOFOL IV EMULSION 10 MG/ML 20 ML VIAL ONE; +PROPOFOL IV EMULSION 10 MG/ML 50 ML VIAL ONE; +SODIUM CHLORIDE 0.9% 250ML 250 ML ONE; +VITAMIN D32000 UNI1 PO
--- OUTSIDE RECORDS SUMMARY | 2019-09-29 07:37 | XMS REPORT ---
[facility] Address Unknown Phone Unavailable Care Team Providers Care Sewer Pipe Cleaner Name Role Phone FABIANMATTHEW CampKELSIE Unavailable Unavailable AVERY MERCER Unavailable Unavailable Daayn YU Unavailable Unavailable GARY GALLEGOS Unavailable Unavailable Harshal STEVENS AFEVANGELINA Unavailable Unavailable Problems This patient has no known problems. Allergies, Adverse Reactions, Alerts This patient has no known allergies or adverse reactions. Medications This patient has no known medications. Results Test Description Test Time Test Comments Text Results Atomic Results Result Comments CHEST SINGLE (PORTABLE) 2019-07-24 12:18:[address] [address] Patient Name: HUMBERTO BUCHANAN MR #: [id number] : 1955 Age/Sex: 63/M Req #: [id number] Adm Physician: Ordered by: JAYASHREE GAGE QUALITY ASSURANCE GROUP LEADER Report #: [id number] Location: ER Room/Bed: Procedure: [id number] DX/CHEST SINGLE (PORTABLE) Exam Date: 07/24/19 Exam Time: 1200 REPORT STATUS: Signed EXAMINATION: CHEST SINGLE (PORTABLE) INDICA TION: decreased bases, fine insp wheeze [id number] 1200 Y COMPARISON: None FINDINGS: AP view TUBES and LINES: None. LUNGS: Limited by low lung volumes and body habitus. Bilateral airspace opacities. PLEURA: No significant pleural effusion or pneumothorax. HEART AND MEDIASTINUM: The cardiomediastinal silhouette is prominent on this AP view, accentuated by low lung volumes.. BONES AND SOFT TISSUES: No acute osseous lesion. Soft tissues are unremarkable. UPPER ABDOMEN: No free air under the diaphragm. IMPRESSION: Bilateral airspace opacities, representing edema and/or pneumonia. Signed by: Dr. Haris Platt MD on 07/24/2019 12:19 PM Dictated By: HARIS PLATT MD 1219 Transcribed By: JAMES on 07/24/19 1219 COPY TO: JAYASHREE GAGE NP CT, CTA ABDOMEN 2019-07-05 18:05:00 Addendum BeginsREPORT STATUS:A I agree with the nonvascular findings detailed by Dr. Jimenez. Additional nonvascular findings include: *Few subcentimeter arterially enhancing foci in segments V and of the liver are likely shunts. Follow-up abdomen CT with and without intravenous contrast (liver protocol) may be obtained in 3-6 months for reassessment.*Calcified gallbladder wall. Consider surgical consultation for further evaluation. Signed: Rachel Starks MDReport Verified Date/Time: 07/05/2019 18:05:35 Reading Location: [address] Radiology Reading RoomAddendum EndsFINAL REPORT CT angiography of the abdominal aorta and pelvic arteries, 05-Jul-19 INDICATION: This is a 63 year old male with a diagnosis of end-stage renal disease, presents for pretransplant assessment. TECHNIQUE: Spiral acquisition during intravenous contrast administration using a BUYSTAND multidetector CT scanner. Images were obtained before and during the dynamic passage of intravenous contrast material. Multi-planar 3-D volume-rendering reconstruction was performed using an independent workstation interactively by the interpreting physician as well as the 3-D specialist for optimal visualisation of the abdominal aorta, pelvic arteries, and its proximal branches. Please refer to the contrast sheet scanned in the EPIC system for the amount and route of contrast given. This exam was performed according to our departmental dose-optimisation programme, which includes automated exposure control, adjustment of the mA and/or kV according to patient size and/or use of iterative reconstruction technique. Dose modulation, iterative reconstruction, and/or weight based adjustment of the mA/kV was utilized to reduce the radiation dose to as low as reasonably achievable. FINDINGS: VASCULAR: Mitral annular calcification is seen. Left atrial prominence is identified. Calcification identified in the distal RCA. The abdominal aorta is normal in course, calibre and contour. No significant atherosclerosis is seen. No ectasia or aneurysmal dilation is present. There is no evidence of acute aortic pathology, specifically, there is no dissection, intramural hematoma, or contained rupture. Quantitative dimensions of the abdominal aorta are as follows: 2.1 cm at the mesenteric segment; 1.9 cm at the renal segment,; and 1.5 cm at the aortic bifurcation. The common iliac, external iliac, common femoral, and the visualized superficial femoral arteries, bilaterally, are widely patent, with only minimal calcification identified. Frit Burner dimensions of the left and the right external iliac arteries are 7 and 7 mm, respectively. Similarly, the associated pelvic veins are patent with no venous thrombosis identified. Frit Burner dimensions of the left and the right external iliac veins are 13 and 10 mm, respectively. The coeliac axis, SMA, AMY are patent. The AMY has calcification present. It appears the hepatic artery arises from the SMA, a normal variant. Patient has recent renal disease in the renal arteries are patent. NON-VASCULAR:- The some atelectatic changes are seen in the lung bases. No pleural effusion is identified. In the abdomen, the liver and spleen appears unremarkable. The liver edge is smooth. No abnormal enhancing structures identified. The adrenal glands are not enlarged and the pancreas appears unremarkable. There are scattered calcification identified in the gallbladder wall. An addendum will be dictated thereafter, if needed. Patient end stage renal disease. No hydronephrosis or perirenal fluid collection is identified. No obvious cyst is identified in the left kidney. A tiny cyst is identified in the inferior aspect of the right kidney, at image 116, too small to characterise. Bowel is not well assessed by CT angiography as enteric contrast is not given. No obvious bowel dilation is identified. The appendix appears unremarkable. Bilateral fat-containing inguinal hernia is identified. The bladder is not distended. The prostate is mildly prominent. No free air free fluid seen abdomen pelvis and no significant retroperitoneal adenopathy is identified. In the bony windows, no acute bony pathology is seen. Some degenerative changes is noted. CONCLUSIONS: 1. The abdominal aorta is normal in course, calibre and contour. No significant atherosclerosis is identified There is no evidence of acute aortic pathology, specifically, there is no dissec tion, intramural hematoma, or contained rupture. Quantitative dimension of the abdominal aorta are as noted. The pelvic arteries and veins are widely patent with no arterial stenosis or venous thrombosis identified. Frit Burner dimensions of the left and the right external iliac arteries and veins are as described above. 2. Patent mesenteric and renal arteries. 3. Other findings as described above. Patient has end-stage renal disease, and a tiny cyst is identified in the right kidney, too small to characterise. 4. An addendum will be dictated regarding the non-vascular findings by the Corn Crop Supervisor Radiologist. Signed: Rocky Jimenez MDReport Verified Date/Time: 07/05/2019 10:11:07 2019-07-05 11:38:00 PROSTATE SPECIFIC ANTIGEN (BEAKER) (test lboe=332) 0.5 ng/mL 0.0-4.0 BASIC METABOLIC [id number] 06:41:00* Test Item Value Reference Range Comments SODIUM (BEAKER) (test jjux=432) 137 meq/L 136-145 POTASSIUM (BEAKER) (test xmmo=864) 4.3 meq/L 3.5-5.1 CHLORIDE (BEAKER) (test vfsz=831) 95 meq/L 98-107 CO2 (BEAKER) (test aixv=365) 30 meq/L 22-29 BLOOD UREA NITROGEN (BEAKER) (test xgij=426) 30 mg/dL 7-21 CREATININE (BEAKER) (test fvfu=136) 6.89 mg/dL 0.57-1.25 GLUCOSE RANDOM (BEAKER) (test sqmv=586) 168 mg/dL 70-105 CALCIUM (BEAKER) (test uvpz=831) 9.5 mg/dL 8.4-10.2 EGFR (BEAKER) (test zawx=4743) 8 mL/min/1.73 sq m ESTIMATED GFR IS NOT ACCURATE CREATININE CLEARANCE IN PREDICTING GLOMERULAR FILTRATION RATE. ESTIMATED GFR IS NOT APPLICABLE FOR DIALYSIS PATIENTS. CBC W/PLT COUNT & AUTO [id number] 06:21:00* Test Item Value Reference Range Comments WHITE BLOOD CELL COUNT (BEAKER) (test lkio=916) 5.8 K/ L 3.5-10.5 RED BLOOD CELL COUNT (BEAKER) (test egxy=747) 3.64 M/ L 4.63-6.08 HEMOGLOBIN (BEAKER) (test ahbk=281) 11.3 GM/DL 13.7-17.5 HEMATOCRIT (BEAKER) (test xpqn=244) 36.0 % 40.1-51.0 MEAN CORPUSCULAR VOLUME (BEAKER) (test asvd=043) 98.9 fL 79.0-92.2 MEAN CORPUSCULAR HEMOGLOBIN (BEAKER) (test etwy=516) 31.0 pg 25.7-32.2 MEAN CORPUSCULAR HEMOGLOBIN CONC (BEAKER) (test ingv=376) 31.4 GM/DL 32.3-36.5 RED CELL DISTRIBUTION WIDTH (BEAKER) (test osii=544) 15.7 % 11.6-14.4 PLATELET COUNT (BEAKER) (test dyil=924) 200 K/CU MM 150-450 MEAN PLATELET VOLUME (BEAKER) (test kebv=455) 10.2 fL 9.4-12.4 NUCLEATED RED BLOOD CELLS (BEAKER) (test mjqb=858) 0 /100 WBC 0-0 NEUTROPHILS RELATIVE PERCENT (BEAKER) (test xdmt=946) 55 % LYMPHOCYTES RELATIVE PERCENT (BEAKER) (test bhao=303) 30 % MONOCYTES RELATIVE PERCENT (BEAKER) (test vlmj=508) 8 % EOSINOPHILS RELATIVE PERCENT (BEAKER) (test gkre=102) 7 % BASOPHILS RELATIVE PERCENT (BEAKER) (test smhb=393) 1 % NEUTROPHILS ABSOLUTE COUNT (BEAKER) (test knsh=147) 3.20 K/ L 1.78-5.38 LYMPHOCYTES ABSOLUTE COUNT (BEAKER) (test zcyq=398) 1.72 K/ L 1.32-3.57 MONOCYTES ABSOLUTE COUNT (BEAKER) (test eege=592) 0.46 K/ L 0.30-0.82 EOSINOPHILS ABSOLUTE COUNT (BEAKER) (test zico=553) 0.38 K/ L 0.04-0.54 BASOPHILS ABSOLUTE COUNT (BEAKER) (test rdnf=453) 0.05 K/ L 0.01-0.08 IMMATURE GRANULOCYTES-RELATIVE PERCENT (BEAKER) (test rnls=9817) 0 % 0-1 FOOT LEFT AP [id number] 10:17:00 [place] [address] Patient Name: HUMBERTO BUCHANAN MR #: [id number] : 1955 Age/Sex: 62/M Req #: [id number] Adm Physician: GARY GALLEGOS MD Ordered by: BLANQUITA MEJIA DPM Report #: [id number] Location: MED/SURG2 Room/Bed: [facility] Procedure: [id number] DX/FOOT L EFT AP LAT Exam Date: 07/30/18 Exam Time: 919 REPORT STATUS: Signed Exam:Left foot radiographs-2 views History: Gangrene of left toe. Comparison: Left foot radiographs 07/23/2018. Findings: There has been interval amputation of the middle and distal phalanges of the second toe, compared to radiograph on 07/23/2018. Punctate gas and soft tissue edema is present in the proximal asp ect of the second toe. No radiographic evidence of osteomyelitis. No eviden ce of acute fracture or malalignment. The Lisfranc alignment is unremarkable. There are diffuse vascular calcifications. Scattered intertarsal mild degenera tive changes. Impression: Status post interval partial amputation of th e left second toe. Edema and small amount of gas in the proximal second toe li galen related to recent postoperative changes. No definite radiographic ev idence of osteomyelitis. Signed by: Dr. Kike Caldwell MD on 07/30/2018 10:23 AM Dictated By: KIKE CALDWELL MD 1023 Transcribed By: JAMES on 07/30/18 1023 COPY TO: Maria C MEJIA DPM FOOT LEFT [id number] 08:10:00 [place] [id number] [place] [address] Patient Name: HUMBERTO BUCHANAN MR #: [id number] : 1955 Age/Sex: 62/M Req #: [id number] Adm Physician: GARY GALLEGOS MD Ordered by: BLANQUITA MEJIA DPM Report #: [id number] Location: [facility] Room/Bed: [facility] Procedure: [id number] DX/FOOT L EFT COMPLETE Exam Date: 07/23/18 Exam Time: 0740 REPORT STATUS: Signed Exam: Left fo ot series; 3 views dated 07/23/2018 at 7:47 AM History: Gangrene of the left second digit Comparison: None available Findings: Soft tissue ulcer an d wound of the distal second digit is noted. There is also an erosion of the d istal phalanx of the second digit. Findings compatible with osteomyelitis. Dif fuse vascular calcification is also present. Impression: Soft tissu e ulcer and bony erosion of the distal phalanx of the second digit. Signed by: Dr. Walt Jon DO on 07/23/2018 8:11 AM Dictated By: WALT JON DO 0 Transcribed By: JAMES on 07/23/18810 COPY TO: BLANQUITA MEJIA DPM FOOT RIGHT [id number] 14:13:00 [place] [address] Patient Name: HUMBERTO BUCHANAN MR #: [id number] : 1955 Age/Sex: 62/M Req #: [id number] [facility] Physician: Ordered by: SIRI STEVENS MD Report #: [id number] Location: [facility] Room/Bed: Procedure: [id number] DX/FOOT RIGHT COMPLETE Exam Date: 03/04/18 Exam Time: 1318 REPORT STATUS: Signed Exam: Right foot series, 3 views. Clinical History: Pressure ulcer in right heel Comparison: None. Findings: 3 views of the right foot. Th ere is normal bone mineralization. Negative for acute, displaced fracture or d islocation. No cortical erosion or destruction. Degenerative changes in the hindfoot/midfoot joints. Extensive vascular calcifications. Soft tissue defe ct in the posterior aspect of the heel, likely representing the known ulcerati on. Moderate anterior calcaneal enthesophyte. Impression: 1. Soft ti ssue defect in the posterior aspect of the heel likely represents the known ul ceration. Adjacent bony structures are intact. No cortical destruction or eros ion to suggest osteomyelitis. 2. Extensive vascular calcifications. Si gned by: Dr. Trent Santos M.D. on 03/04/2018 2:15 PM Dictated By: YVONNE SANTOS MD 1415 T ranscribed By: JAMES on 03/04/18 1415 COPY TO: SIRI STEVESN MD [id number] 19:51:00* Test Item Value Reference Range Comments PROSTATE SPECIFIC ANTIGEN (BEAKER) (test wzmt=809) 0.6 ng/mL 0.0-4.0 PET, CARDIAC PERFUSION MULTIPLE STUDIES, REST AND [id number] 16:23:00 Reason for Exam:->mac, esrd, cadFINAL REPORT PROCEDURE: Rest/Stress MYOCARDIAL PERFUSION PET with regadenoson\XA9\ CPT CODE: 72889 INDICATION: Define extent, severity of known CAD, [...] distribution. 6. Compared to previous [facility] study report on 2014, the previously mentioned anterolateral defect is no longer seen. NONINVA SIVE RISK STRATIFICATION: The above findings are considered low risk (<1% annual mortality rate) based on the following criterion:- Normal or small myocardial perfusion defect at rest or with stress(JACC. 2012;59(9):857-81.) Signed: Saman Meadows Verified Date/Time: 09/08/2017 16:23:27 Reading Location: [address] P[address] [facility] Room TCH [id number] 09:31:00* Test Item Value Reference Range Comments CRSMTCH LRD RESULT (BEAKER) (test ezme=2584) See Scanned Report CRSMTCH T+B [id number] 09:31:00* Test Item Value Reference Range Comments CRSMTCH T+B CELLS RESULT (BEAKER) (test icek=3910) See Scanned Report CRSMTCH T+B [id number] 09:30:00* Test Item Value Reference Range Comments CRSMTCH T+B CELLS RESULT (BEAKER) (test koif=0650) See Scanned Report CRSMTCH FLOW [id number] 09:30:00* Test Item Value Reference Range Comments CRSMTCH FLOW ADDL RESULT (BEAKER) (test ergc=6211) See Scanned Report CRSMTCH FLOW [id number] 09:29:00* Test Item Value Reference Range Comments CRSMTCH FLOW ADDL RESULT (BEAKER) (test pfwo=2785) See Scanned Report CRSMTCH [id number] 09:29:00* Test Item Value Reference Range Comments CRSMTCH FLOW RESULT (BEAKER) (test stsm=9763) CRSMTCH [id number] 09:29:00* Test Item Value Reference Range Comments CRSMTCH LRD RESULT (BEAKER) (test nbsj=0384) See Scanned Report CRSMTCH FLOW [id number] 11:47:00* Test Item Value Reference Range Comments CRSMTCH FLOW ADDL RESULT (BEAKER) (test gmqr=2982) See Scanned Report [id number] 11:46:00* Test Item Value Reference Range Comments CRSMTCH-HIST RESULT (BEAKER) (test knbp=8397) See Scanned Report [id number] 11:45:00* Test Item Value Reference Range Comments CRSMTCH-PRETRANS RESULT (BEAKER) (test swjd=8977) See Scanned Report CRSMTCH FLOW [id number] 11:45:00* Test Item Value Reference Range Comments CRSMTCH FLOW ADDL RESULT (BEAKER) (test prhu=2491) See Scanned Report CRSMTCH [id number] 11:45:00* Test Item Value Reference Range Comments CRSMTCH FLOW RESULT (BEAKER) (test kath=8531) [id number] 11:45:00* Test Item Value Reference Range Comments CRSMTCH-CURRENT RESULT (BEAKER) (test eaaa=1404) See Scanned Report CRSMTCH FLOW [id number] 07:34:00* Test Item Value Reference Range Comments CRSMTCH FLOW ADDL RESULT (BEAKER) (test gfag=8785) See Scanned Report CRSMTCH FLOW [id number] 07:32:00* Test Item Value Reference Range Comments CRSMTCH FLOW ADDL RESULT (BEAKER) (test dspv=3893) See Scanned Report CRSMTCH [id number] 07:32:00* Test Item Value Reference Range Comments CRSMTCH FLOW RESULT (BEAKER) (test ktry=2823) [id number] 07:32:00* Test Item Value Reference Range Comments CRSMTCH-CURRENT RESULT (BEAKER) (test phws=9673) See Scanned Report [id number] 07:32:00* Test Item Value Reference Range Comments CRSMTCH-HIST RESULT (BEAKER) (test xefz=3128) See Scanned Report [id number] 07:31:00* Test Item Value Reference Range Comments CRSMTCH-PRETRANS RESULT (BEAKER) (test ozgl=8286) See Scanned Report AB SPECIFICITY CLASS [id number] 11:38:00* Test Item Value Reference Range Comments AB SPECIFICITY CLASS I (BEAKER) (test vulk=0552) DATE OF SERUM (BEAKER) (test utjn=4498) 137724 SERUM # (BEAKER) (test gjuf=7781) 201841 AB SPECIFICITY CLASS [id number] 11:37:00* Test Item Value Reference Range Comments AB SPECIFICITY CLASS I (BEAKER) (test byte=9391) DATE OF SERUM (BEAKER) (test kqyv=2822) 333292 SERUM # (BEAKER) (test mjpa=2720) 815698 AB SPECIFICITY CLASS [id number] 11:10:00* Test Item Value Reference Range Comments AB SPECIFICITY CLASS I (BEAKER) (test qzde=0494) DATE OF SERUM (BEAKER) (test lovq=6479) 177084 SERUM # (BEAKER) (test uguf=5735) [id number] 06:23:00* Test Item Value Reference Range Comments CRSMTCH-HIST RESULT (BEAKER) (test tkal=3921) See Scanned Report CRSMTCH FLOW [id number] 06:23:00* Test Item Value Reference Range Comments CRSMTCH FLOW ADDL RESULT (BEAKER) (test tesp=3847) See Scanned Report [id number] 06:22:00* Test Item Value Reference Range Comments CRSMTCH-PRETRANS RESULT (BEAKER) (test vtna=5515) See Scanned Report CRSMTCH FLOW [id number] 06:22:00* Test Item Value Reference Range Comments CRSMTCH FLOW ADDL RESULT (BEAKER) (test nopf=9834) See Scanned Report CRSMTCH [id number] 06:22:00* Test Item Value Reference Range Comments CRSMTCH FLOW RESULT (BEAKER) (test sjrt=0423) [id number] 06:22:00* Test Item Value Reference Range Comments CRSMTCH-CURRENT RESULT (BEAKER) (test nric=8961) See Scanned Report FLOW PRA CLASS I AND [id number] 08:58:00* Test Item Value Reference Range Comments DATE OF SERUM (BEAKER) (test moti=3324) 650341 SERUM # (BEAKER) (test dpbn=0395) 124494 FLOW PRA CLASS I AND II (test tzxv=1390) See Scanned Report FLOW PRA CLASS I AND [id number] 13:54:00* Test Item Value Reference Range Comments DATE OF SERUM (BEAKER) (test stqf=0642) 109111 SERUM # (BEAKER) (test ivgq=5014) 693428 FLOW PRA CLASS I AND II (test cgwp=9635) See Scanned Report FLOW PRA CLASS I AND [id number] 09:52:00* Test Item Value Reference Range Comments DATE OF SERUM (BEAKER) (test zxhf=7549) 517927 SERUM # (BEAKER) (test fsoo=9672) 572227 FLOW PRA CLASS I AND II (test imnw=8506) See Scanned Report AB SPECIFICITY CLASS [id number] 11:24:00* Test Item Value Reference Range Comments DATE OF SERUM (BEAKER) (test lany=4655) 068563 SERUM # (BEAKER) (test brfb=7360) 601580 AB SPECIFICITY CLASS I (BEAKER) (test dhct=3749) See Scanned Report FLOW PRA CLASS I AND [id number] 15:12:00* Test Item Value Reference Range Comments DATE OF SERUM (BEAKER) (test vebb=8853) 025838 SERUM # (BEAKER) (test kkwa=7343) 642460 FLOW PRA CLASS I AND II (test mazk=6317) See Scanned Report CRSMTCH FLOW [id number] 11:44:00* Test Item Value Reference Range Comments CRSMTCH FLOW ADDL RESULT (BEAKER) (test ilfl=1019) See Scanned Report CRSMTCH FLOW [id number] 11:43:00* Test Item Value Reference Range Comments CRSMTCH FLOW ADDL RESULT (BEAKER) (test xpyk=9217) See Scanned Report CRSMTCH [id number] 11:43:00* Test Item Value Reference Range Comments CRSMTCH FLOW RESULT (BEAKER) (test vzmj=8883) See Scanned Report [id number] 11:43:00* Test Item Value Reference Range Comments CRSMTCH-CURRENT RESULT (BEAKER) (test qtje=4442) See Scanned Report [id number] 11:43:00* Test Item Value Reference Range Comments CRSMTCH-HIST RESULT (BEAKER) (test itfy=7039) See Scanned Report [id number] 11:43:00* Test Item Value Reference Range Comments CRSMTCH-PRETRANS RESULT (BEAKER) (test hoih=1637) See Scanned Report CRSMTCH FLOW [id number] 14:31:00* Test Item Value Reference Range Comments CRSMTCH FLOW ADDL RESULT (BEAKER) (test oibv=1161) See Scanned Report CRSMTCH [id number] 14:31:00* Test Item Value Reference Range Comments CRSMTCH FLOW RESULT (BEAKER) (test bhqf=6380) See Scanned Report [id number] 14:31:00* Test Item Value Reference Range Comments CRSMTCH-CURRENT RESULT (BEAKER) (test cwtc=3758) See Scanned Report [id number] 14:31:00* Test Item Value Reference Range Comments CRSMTCH-HIST RESULT (BEAKER) (test pvhw=4466) See Scanned Report CRSMTCH FLOW [id number] 14:31:00* Test Item Value Reference Range Comments CRSMTCH FLOW ADDL RESULT (BEAKER) (test lomm=1211) See Scanned Report [id number] 14:30:00* Test Item Value Reference Range Comments CRSMTCH-PRETRANS RESULT (BEAKER) (test nhhv=1368) See Scanned Report CRSMTCH FLOW [id number] 15:58:00* Test Item Value Reference Range Comments CRSMTCH FLOW ADDL RESULT (BEAKER) (test duns=9732) See Scanned Report [id number] 15:57:00* Test Item Value Reference Range Comments CRSMTCH-PRETRANS RESULT (BEAKER) (test itgm=2114) See Scanned Report CRSMTCH FLOW [id number] 15:57:00* Test Item Value Reference Range Comments CRSMTCH FLOW ADDL RESULT (BEAKER) (test nses=1625) See Scanned Report CRSMTCH [id number] 15:57:00* Test Item Value Reference Range Comments CRSMTCH FLOW RESULT (BEAKER) (test uree=2256) See Scanned Report [id number] 15:57:00* Test Item Value Reference Range Comments CRSMTCH-CURRENT RESULT (BEAKER) (test ehyb=0749) See Scanned Report [id number] 15:57:00* Test Item Value Reference Range Comments CRSMTCH-HIST RESULT (BEAKER) (test mseu=0930) See Scanned Report AB SPECIFICITY CLASS [id number] 11:56:00* Test Item Value Reference Range Comments DATE OF SERUM (BEAKER) (test lkrd=2813) 837762 SERUM # (BEAKER) (test gkrz=7474) 690160 AB SPECIFICITY CLASS I (BEAKER) (test uncv=0689) See Scanned Report CRSMTCH FLOW [id number] 15:50:00* Test Item Value Reference Range Comments CRSMTCH FLOW ADDL RESULT (BEAKER) (test qxwe=9645) See Scanned Report CRSMTCH FLOW [id number] 15:49:00* Test Item Value Reference Range Comments CRSMTCH FLOW ADDL RESULT (BEAKER) (test rkhm=4274) See Scanned Report CRSMTCH [id number] 15:49:00* Test Item Value Reference Range Comments CRSMTCH FLOW RESULT (BEAKER) (test jwjx=2527) See Scanned Report [id number] 15:49:00* Test Item Value Reference Range Comments CRSMTCH-CURRENT RESULT (BEAKER) (test jgty=8710) See Scanned Report [id number] 15:49:00* Test Item Value Reference Range Comments CRSMTCH-HIST RESULT (BEAKER) (test yuhc=3552) See Scanned Report [id number] 15:49:00* Test Item Value Reference Range Comments CRSMTCH-PRETRANS RESULT (BEAKER) (test jwda=3438) See Scanned Report FLOW PRA CLASS I AND [id number] 15:43:00* Test Item Value Reference Range Comments DATE OF SERUM (BEAKER) (test hrey=2706) 666039 SERUM # (BEAKER) (test vsqk=0198) 318683 FLOW PRA CLASS I AND II (test jtxb=6662) See Scanned Report CRSMTCH FLOW [id number] 13:00:00* Test Item Value Reference Range Comments CRSMTCH FLOW ADDL RESULT (BEAKER) (test mkrs=5940) See Scanned Report CRSMTCH FLOW [id number] 12:59:00* Test Item Value Reference Range Comments CRSMTCH FLOW ADDL RESULT (BEAKER) (test pkzz=5205) See Scanned Report CRSMTCH [id number] 12:59:00* Test Item Value Reference Range Comments CRSMTCH FLOW RESULT (BEAKER) (test wdkn=2474) See Scanned Report [id number] 12:59:00* Test Item Value Reference Range Comments CRSMTCH-CURRENT RESULT (BEAKER) (test dlio=9066) See Scanned Report [id number] 12:59:00* Test Item Value Reference Range Comments CRSMTCH-HIST RESULT (BEAKER) (test yumr=0227) See Scanned Report [id number] 12:59:00* Test Item Value Reference Range Comments CRSMTCH-PRETRANS RESULT (BEAKER) (test kcst=3206) See Scanned Report [id number] 12:45:00* Test Item Value Reference Range Comments CRSMTCH-HIST RESULT (BEAKER) (test vupp=1248) See Scanned Report [id number] 12:45:00* Test Item Value Reference Range Comments CRSMTCH-PRETRANS RESULT (BEAKER) (test sfhp=1241) See Scanned Report CRSMTCH FLOW [id number] 12:45:00* Test Item Value Reference Range Comments CRSMTCH FLOW ADDL RESULT (BEAKER) (test rijy=4896) See Scanned Report CRSMTCH FLOW [id number] 12:44:00* Test Item Value Reference Range Comments CRSMTCH FLOW ADDL RESULT (BEAKER) (test fxoj=7735) See Scanned Report CRSMTCH [id number] 12:44:00* Test Item Value Reference Range Comments CRSMTCH FLOW RESULT (BEAKER) (test mpxg=8985) See Scanned Report [id number] 12:44:00* Test Item Value Reference Range Comments CRSMTCH-CURRENT RESULT (BEAKER) (test euyb=6332) See Scanned Report AB SPECIFICITY CLASS [id number] 11:29:00* Test Item Value Reference Range Comments DATE OF SERUM (BEAKER) (test opjd=7338) [id number] SERUM # (BEAKER) (test hilb=3736) 903180 AB SPECIFICITY CLASS I (BEAKER) (test etjg=3920) See Scanned Report AB SPECIFICITY CLASS [id number] 15:34:00* Test Item Value Reference Range Comments DATE OF SERUM (BEAKER) (test caem=6966) 507519 SERUM # (BEAKER) (test qxpo=3948) 398905 AB SPECIFICITY CLASS I (BEAKER) (test yizh=2449) See Scanned Report CRSMTCH FLOW [id number] 10:54:00* Test Item Value Reference Range Comments CRSMTCH FLOW ADDL RESULT (BEAKER) (test hsbp=6442) See Scanned Report CRSMTCH [id number] 10:54:00* Test Item Value Reference Range Comments CRSMTCH FLOW RESULT (BEAKER) (test fuxr=8137) See Scanned Report [id number] 10:54:00* Test Item Value Reference Range Comments CRSMTCH-CURRENT RESULT (BEAKER) (test smqt=5256) See Scanned Report [id number] 10:54:00* Test Item Value Reference Range Comments CRSMTCH-HIST RESULT (BEAKER) (test sywx=2058) See Scanned Report [id number] 10:54:00* Test Item Value Reference Range Comments CRSMTCH-PRETRANS RESULT (BEAKER) (test bhfe=9940) See Scanned Report FLOW PRA CLASS I AND [id number] 10:07:00* Test Item Value Reference Range Comments DATE OF SERUM (BEAKER) (test fnap=7724) 086213 SERUM # (BEAKER) (test jqfi=7653) 824243 FLOW PRA CLASS I AND II (test jxgv=1222) See Scanned Report FLOW PRA CLASS I AND [id number] 09:56:00* Test Item Value Reference Range Comments DATE OF SERUM (BEAKER) (test jrad=4105) 274027 SERUM # (BEAKER) (test sbkw=5945) 813882 FLOW PRA CLASS I AND II (test uplx=3456) See Scanned Report FLOW PRA CLASS I AND [id number] 12:49:00* Test Item Value Reference Range Comments DATE OF SERUM (BEAKER) (test wyfx=9396) 126705 SERUM # (BEAKER) (test hlgr=9619) 624389 FLOW PRA CLASS I AND II (test ixpb=8888) See Scanned Report AB SPECIFICITY CLASS [id number] 10:56:00* Test Item Value Reference Range Comments DATE OF SERUM (BEAKER) (test eksw=4778) 590571 SERUM # (BEAKER) (test ufmz=8436) 700356 AB SPECIFICITY CLASS I (BEAKER) (test jeoj=3208) See Scanned Report [id number] 15:14:00* Test Item Value Reference Range Comments CRSMTCH-PRETRANS RESULT (BEAKER) (test qqsn=9188) See Scanned Report CRSMTCH FLOW [id number] 15:14:00* Test Item Value Reference Range Comments CRSMTCH FLOW ADDL RESULT (BEAKER) (test iwpg=8706) See Scanned Report CRSMTCH [id number] 15:14:00* Test Item Value Reference Range Comments CRSMTCH FLOW RESULT (BEAKER) (test ywyd=2129) See Scanned Report [id number] 15:14:00* Test Item Value Reference Range Comments CRSMTCH-CURRENT RESULT (BEAKER) (test hrvr=0837) See Scanned Report [id number] 15:14:00* Test Item Value Reference Range Comments CRSMTCH-HIST RESULT (BEAKER) (test rnqv=7569) See Scanned Report AB SPECIFICITY CLASS [id number] 11:54:00* Test Item Value Reference Range Comments DATE OF SERUM (BEAKER) (test qpad=9157) 050324 SERUM # (BEAKER) (test tivk=6311) 413823 AB SPECIFICITY CLASS I (BEAKER) (test ahkt=5835) See Scanned Report FLOW PRA CLASS I AND [id number] 10:51:00* Test Item Value Reference Range Comments DATE OF SERUM (BEAKER) (test nivh=7765) 677235 SERUM # (BEAKER) (test sloq=8546) 036491 FLOW PRA CLASS I AND II (test yvnx=7611) See Scanned Report CRSMTCH FLOW [id number] 10:18:00* Test Item Value Reference Range Comments CRSMTCH FLOW ADDL RESULT (BEAKER) (test tpqh=8853) See Scanned Report CRSMTCH [id number] 10:17:00* Test Item Value Reference Range Comments CRSMTCH FLOW RESULT (BEAKER) (test ozug=2755) See Scanned Report CRSMTCH FLOW [id number] 10:17:00* Test Item Value Reference Range Comments CRSMTCH FLOW ADDL RESULT (BEAKER) (test luiy=2899) See Scanned Report [id number] 10:12:00* Test Item Value Reference Range Comments CRSMTCH-PRETRANS RESULT (BEAKER) (test vsls=6489) See Scanned Report [id number] 10:12:00* Test Item Value Reference Range Comments CRSMTCH-CURRENT RESULT (BEAKER) (test rtvx=5725) See Scanned Report [id number] 10:12:00* Test Item Value Reference Range Comments CRSMTCH-HIST RESULT (BEAKER) (test qubl=2403) See Scanned Report FLOW PRA CLASS I AND [id number] 11:31:00* Test Item Value Reference Range Comments DATE OF SERUM (BEAKER) (test yiyv=0653) 832230 SERUM # (BEAKER) (test gllr=8658) 962326 FLOW PRA CLASS I AND II (test uymv=0718) See Scanned Report POTASSIUM-STAT [id number] 06:44:00* Test Item Value Reference Range Comments POTASSIUM (BEAKER) (test pgpb=577) 3.9 meq/L 3.6-5.5 POTASSIUM-STAT [id number] 06:29:00* Test Item Value Reference Range Comments POTASSIUM (BEAKER) (test fzuc=488) 6.3 meq/L 3.6-5.5 GLUCOSE-STAT [id number] 06:17:00* Test Item Value Reference Range Comments GLUCOSE RANDOM (BEAKER) (test wsno=171) 229 mg/dL 70-110 AB SPECIFICITY CLASS [id number] 12:22:00* Test Item Value Reference Range Comments DATE OF SERUM (BEAKER) (test lqha=1379) 259744 SERUM # (BEAKER) (test hoow=8271) 941955 AB SPECIFICITY CLASS I (BEAKER) (test lhen=8198) See Scanned Report AB SPECIFICITY CLASS [id number] 12:02:00* Test Item Value Reference Range Comments DATE OF SERUM (BEAKER) (test vozq=2472) 667873 SERUM # (BEAKER) (test fegz=8522) 954427 AB SPECIFICITY CLASS I (BEAKER) (test yvtt=4326) See Scanned Report FLOW PRA CLASS I AND [id number] 12:31:00* Test Item Value Reference Range Comments DATE OF SERUM (BEAKER) (test plmp=1866) 674284 SERUM # (BEAKER) (test hnvd=8789) 771197 FLOW PRA CLASS I AND II (test fkel=8148) See Scanned Report AB SPECIFICITY CLASS [id number] 07:26:00* Test Item Value Reference Range Comments DATE OF SERUM (BEAKER) (test avne=8103) 467360 SERUM # (BEAKER) (test vowa=3205) 07832 AB SPECIFICITY CLASS I (BEAKER) (test ncfa=7049) See Scanned Report
[2019-09-29 09:03] LABS: BASOPHILS # (AUTO) 0.1 (0.0-0.1); BASOPHILS % 1.1 % (0.0-1.0); EOSINOPHILS # (AUTO) 0.4 (0.0-0.4); EOSINOPHILS % 5.3 % (0.0-6.0); HEMATOCRIT 38.2 % (38.2-49.6); HEMOGLOBIN 11.9 g/dL (14.0-18.0); LYMPHOCYTES # (AUTO) 1.7 (1.0-3.2); LYMPHOCYTES % 23.3 % (18.0-39.1); MEAN CORPUSCULAR HEMOGLOBIN 29.5 pg (28-32); MEAN CORPUSCULAR HGB CONC 31.2 g/dL (31-35); MEAN CORPUSCULAR VOLUME 94.8 fL (81-99); MONOCYTES # (AUTO) 0.6 (0.2-0.8); MONOCYTES % 7.9 % (4.4-11.3); NEUTROPHILS # (AUTO) 4.5 (2.1-6.9); NEUTROPHILS % 62.1 % (38.7-80.0); PLATELET COUNT 253 x10e3/uL (140-360); RED BLOOD COUNT 4.03 x10e6/uL (4.3-5.7); RED CELL DISTRIBUTION WIDTH 19.4 % (11.7-14.4)
[2019-09-29 09:19] LABS: INR 0.99; PROTHROMBIN TIME 13.7 seconds (11.9-14.5)
[2019-09-29 09:20] LABS: PARTIAL THROMBOPLASTIN TIME 36.7 seconds (23.8-35.5)
[2019-09-29 09:23] LABS: ANION GAP 17.4 mmol/L (8-16); CALCIUM 9.7 mg/dL (8.4-10.2); CREATININE, SERUM 6.25 mg/dL (0.72-1.25); POTASSIUM 4.4 mmol/L (3.5-5.1)
[2019-09-29 11:50] VITALS: BP 132/65
--- NOTE | 2019-09-29 12:27 | Operative Report ---
DATE OF PROCEDURE: 09/29/2019 SURGEON: Artie Hernandez MD PROCEDURE: EGD with ERCP scope and biopsies. INDICATIONS FOR PROCEDURE: History of duodenal nodule on EGD in the recent past. The patient is in to re-examine nodule with side-viewing scope and obtain additional biopsies. MEDICATIONS: The patient was done under MAC, please see anesthesiologist's note. PROCEDURE IN DETAIL: With the patient in the left lateral decubitus position, a flexible fiberoptic Olympus side-viewing scope was inserted into the esophagus and advanced all the way to the second portion of the duodenum. The ampulla was identified and appeared to be within normal limits. An approximately 1.2 cm nodule was noted just proximal to the ampulla in the proximal second portion of the duodenum and biopsies were obtained. The scope was subsequently withdrawn and the patient tolerated the procedure well. IMPRESSION: Approximately 1.2 cm nodule, proximal duodenum, proximal to ampulla, biopsied. PLAN: Follow up histology. Artie Hernandez MD [facility] [place] /[id number] cc: Zuhair Ellis MD
== END | disposition home or self-care (01) ==
LOC: ENDO 07:27
PROVIDERS: ATTEND Internal Medicine Gastroenterology
DX: K29.60 Other gastritis without bleeding (principal); Z86.010 Personal history of colon polyps; K31.89 Other diseases of stomach and duodenum; K22.70 Barrett's esophagus without dysplasia; I25.10 Atherosclerotic heart disease of native coronary artery without angina pectoris; I12.0 Hypertensive chronic kidney disease with stage 5 chronic kidney disease or end stage renal disease; E11.22 Type 2 diabetes mellitus with diabetic chronic kidney disease; N18.6 End stage renal disease; Z99.2 Dependence on renal dialysis; Z01.810 Encounter for preprocedural cardiovascular examination; Z79.4 Long term (current) use of insulin; Z79.82 Long term (current) use of aspirin; Z68.31 Body mass index [BMI] 31.0-31.9, adult; Z95.5 Presence of coronary angioplasty implant and graft
CPT/HCPCS: 36415; 43239; 80048; 82948; 85025; 85610; 85730; 88305; 88312; 93005; J2001; J2250; J2704 ×2; J3010; J7050

== ENCOUNTER 2021-04-18 14:28 | Inpatient (IN) | payer MEDICARE, OTHER ==
[~2021-04-18] VITALS: Ht 180.3 cm; Wt 106.6 kg
[~2021-04-18 14:28] MED LIST changes: -FENTANYL CITRATE/PF 100MCG/2 ML INJ ONE; -GLYCOPYRROLATE INJ 0.2 MG/ML VIAL ONE; -LIDOCAINE HCL 2% LOCAL INJ 5 ML SDV VIAL INJ ONE; -MIDAZOLAM HCL 2 MG/2 ML VIAL ONE; -PROPOFOL IV EMULSION 10 MG/ML 20 ML VIAL ONE; -PROPOFOL IV EMULSION 10 MG/ML 50 ML VIAL ONE; -SODIUM CHLORIDE 0.9% 250ML 250 ML ONE
[2021-04-18] MEDS ORDERED: DEXAMETHASONE SOD PHOS 10 MG/1 ML VIAL IV STA (14:52)
[2021-04-18] MEDS ORDERED: SODIUM CHLORIDE 0.9% 50ML 50 ML ONE (15:05)
[2021-04-18] MEDS ORDERED: IOPAMIDOL 370 MG/ML 200 ML INFUS..BTL INJ ONE (15:05)
[2021-04-18] MEDS ORDERED: DEXAMETHASONE SOD PHOS INJ 4 MG/ML SDV ONE (15:20)
[2021-04-18] MEDS ORDERED: SODIUM CHLORIDE 0.9% 250ML 250 ML ONE (15:20)
[2021-04-18] MEDS ORDERED: HYDRALAZINE HCL 20 MG/ML VIAL ONE (15:29)
[2021-04-18] MEDS ORDERED: HYDRALAZINE HCL 20 MG/ML VIAL IV ONE (15:30)
[2021-04-18] MEDS ORDERED: ASPIRIN 81 MG CHEW TAB PO ONE (16:15)
[2021-04-18] MEDS ORDERED: MORPHINE SULFATE INJ 4 MG/ML INJ 1ML IV PRN (16:15)
[2021-04-18] MEDS ORDERED: ONDANSETRON HCL INJ 2MG/ML 2ML 2 MG/ML VIAL IV PRN (16:15)
[2021-04-18 20:56] VITALS: BP 132/59
[2021-04-18 21:19] LABS: CREATINE KINASE MB 1.4 ng/mL (0-5.0)
[2021-04-19] VITALS (11 sets, daily range): BP systolic 132–197; BP diastolic 57–83
[2021-04-19] MEDS ORDERED: CARVEDILOL12.5 MG PO (02:33)
[2021-04-19] MEDS ORDERED: MYCOPHENOLATE250 MG PO (02:35)
[2021-04-19] MEDS ORDERED: FINASTERIDE5 MG PO (02:44)
[2021-04-19] MEDS ORDERED: FLOMAX0.4 MG PO (02:51)
[2021-04-19] MEDS ORDERED: TACROLIMUS0.5 GM (02:51)
[2021-04-19] MEDS ORDERED: HYDRALAZINE HC100 MG PO (02:51)
[2021-04-19] MEDS ORDERED: TACROLIMUS1 MG PO (02:51)
[2021-04-19] MEDS ORDERED: PREDNISONE5 MG PO (02:51)
[2021-04-19] MEDS ORDERED: VITAMIN B-650 MG PO (02:59)
[2021-04-19] MEDS ORDERED: TACROLIMUS0.5 MG PO (02:59)
[2021-04-19] MEDS ORDERED: HYDRALAZINE HCL 25 MG TAB PO STA (03:37)
[2021-04-19] MEDS ORDERED: CARVEDILOL 12.5 MG TAB PO SCH (03:40)
[2021-04-19] MEDS ORDERED: METOPROLOL TARTRATE INJ 1 MG/ML VIAL IV PRN (03:45)
[2021-04-19] MEDS ORDERED: DEXTROSE 50% SYRINGE 50 ML IV PRN (03:45)
[2021-04-19] MEDS: INSULIN REGULAR, HUMAN 100 UNIT/1 ML SQ SCH ×5 (03:53→21:00)
[2021-04-19 06:25] LABS: BASOPHILS % 0.2 % (0.0-1.0); HEMATOCRIT 34.5 % (38.2-49.6); HEMOGLOBIN 10.6 g/dL (14.0-18.0); LYMPHOCYTES # (AUTO) 0.4 (1.0-3.2); LYMPHOCYTES % 8.3 % (18.0-39.1); MEAN CORPUSCULAR HEMOGLOBIN 26.2 pg (28-32); MEAN CORPUSCULAR HGB CONC 30.7 g/dL (31-35); MEAN CORPUSCULAR VOLUME 85.4 fL (81-99); MONOCYTES # (AUTO) 0.3 (0.2-0.8); NEUTROPHILS # (AUTO) 4.1 (2.1-6.9); NEUTROPHILS % 84.9 % (38.7-80.0); PLATELET COUNT 184 x10e3/uL (140-360); RED BLOOD COUNT 4.04 x10e6/uL (4.3-5.7)
[2021-04-19] MEDS: PANTOPRAZOLE SOD 40 MG TABEC PO SCH ×2 (06:30→16:19)
[2021-04-19] MEDS: HYDRALAZINE HCL 100 MG TABLET PO SCH ×3 (06:30→22:00)
[2021-04-19 06:56] LABS: ALBUMIN/GLOBULIN RATIO 0.8 (0.8-2.0); ANION GAP 14.1 mmol/L (8-16); CALCIUM 9.7 mg/dL (8.4-10.2); CREATININE, SERUM 1.36 mg/dL (0.72-1.25); POTASSIUM 5.1 mmol/L (3.5-5.1)
[2021-04-19 07:03] LABS: CREATINE KINASE MB 1.5 ng/mL (0-5.0)
[2021-04-19 07:18] LABS: CHOL/HDL RATIO 2.5 (3.9-4.7)
[2021-04-19] MEDS: FUROSEMIDE INJ 10 MG/ML 2 ML VIAL IV SCH ×2 (08:27→16:19)
[2021-04-19] MEDS: MYCOPHENOLATE MOFETIL 250 MG CAP PO SCH ×2 (08:28→16:19)
[2021-04-19] MEDS: MECLIZINE HCL 12.5 MG TAB PO SCH ×3 (08:28→21:00)
[2021-04-19] MEDS: CARVEDILOL 3.125 MG TAB PO SCH ×2 (08:29→16:21)
[2021-04-19] MEDS: GABAPENTIN 300 MG CAP PO SCH (08:29)
[2021-04-19] MEDS: FERROUS SULFATE 325 MG TAB PO SCH ×2 (08:29→16:19)
[2021-04-19] MEDS: TAMSULOSIN HCL 0.4 MG CAP PO SCH (08:29)
[2021-04-19] MEDS: FINASTERIDE 5 MG TAB PO SCH (08:30)
[2021-04-19] MEDS: PREDNISONE 5 MG TAB PO SCH (08:30)
[2021-04-19] MEDS: FENOFIBRATE 48 MG TAB PO SCH (08:30)
[2021-04-19] MEDS ORDERED: HYDRALAZINE HCL 100 MG TABLET PO SCH (09:00)
[2021-04-19 14:59] LABS: CREATINE KINASE MB 1.9 ng/mL (0-5.0)
[2021-04-19] MEDS: TACROLIMUS 0.5 MG CAP PO SCH (16:19)
[2021-04-19] MEDS: ISOSORBIDE DINITRATE 20 MG TAB PO SCH (21:00)
[2021-04-20] VITALS (8 sets, daily range): BP systolic 141–169; BP diastolic 55–64
[2021-04-20] MEDS: OLMESARTAN 20 MG TAB PO SCH ×2 (03:18→21:31)
[2021-04-20] MEDS: PANTOPRAZOLE SOD 40 MG TABEC PO SCH ×2 (05:37→16:32)
[2021-04-20] MEDS: HYDRALAZINE HCL 100 MG TABLET PO SCH ×3 (05:37→21:31)
[2021-04-20] MEDS: INSULIN REGULAR, HUMAN 100 UNIT/1 ML SQ SCH ×4 (07:30→21:00)
[2021-04-20] MEDS: FUROSEMIDE INJ 10 MG/ML 2 ML VIAL IV SCH ×2 (09:24→16:30)
[2021-04-20] MEDS: MYCOPHENOLATE MOFETIL 250 MG CAP PO SCH ×2 (09:24→16:31)
[2021-04-20] MEDS: TAMSULOSIN HCL 0.4 MG CAP PO SCH (09:24)
[2021-04-20] MEDS: MECLIZINE HCL 12.5 MG TAB PO SCH ×3 (09:24→21:30)
[2021-04-20] MEDS: PREDNISONE 5 MG TAB PO SCH (09:25)
[2021-04-20] MEDS: GABAPENTIN 300 MG CAP PO SCH (09:25)
[2021-04-20] MEDS: ISOSORBIDE DINITRATE 20 MG TAB PO SCH ×2 (09:25→16:32)
[2021-04-20] MEDS: FENOFIBRATE 48 MG TAB PO SCH (09:25)
[2021-04-20] MEDS: FERROUS SULFATE 325 MG TAB PO SCH ×2 (09:25→16:31)
[2021-04-20] MEDS: CARVEDILOL 3.125 MG TAB PO SCH ×2 (09:25→16:31)
[2021-04-20] MEDS: FINASTERIDE 5 MG TAB PO SCH (09:25)
[2021-04-20] MEDS: TACROLIMUS 0.5 MG CAP PO SCH (16:32)
[2021-04-21] VITALS: BP 137/116
[2021-04-21 04:00] VITALS: BP 183/66
[2021-04-21] MEDS: PANTOPRAZOLE SOD 40 MG TABEC PO SCH ×2 (05:03→17:53)
[2021-04-21] MEDS: HYDRALAZINE HCL 100 MG TABLET PO SCH ×2 (05:33→14:00)
[2021-04-21 06:02] LABS: BASOPHILS % 0.3 % (0.0-1.0); EOSINOPHILS % 0.2 % (0.0-6.0); HEMATOCRIT 35.1 % (38.2-49.6); HEMOGLOBIN 11.1 g/dL (14.0-18.0); LYMPHOCYTES # (AUTO) 1.1 (1.0-3.2); LYMPHOCYTES % 12.8 % (18.0-39.1); MEAN CORPUSCULAR HEMOGLOBIN 26.4 pg (28-32); MEAN CORPUSCULAR HGB CONC 31.6 g/dL (31-35); MEAN CORPUSCULAR VOLUME 83.4 fL (81-99); MONOCYTES # (AUTO) 0.9 (0.2-0.8); MONOCYTES % 10.8 % (4.4-11.3); NEUTROPHILS # (AUTO) 6.5 (2.1-6.9); NEUTROPHILS % 75.4 % (38.7-80.0); PLATELET COUNT 244 x10e3/uL (140-360); RED BLOOD COUNT 4.21 x10e6/uL (4.3-5.7); RED CELL DISTRIBUTION WIDTH 16.1 % (11.7-14.4)
[2021-04-21 06:38] LABS: ANION GAP 14.7 mmol/L (8-16); CALCIUM 9.8 mg/dL (8.4-10.2); CREATININE, SERUM 1.14 mg/dL (0.72-1.25); MAGNESIUM 1.6 MG/DL (1.3-2.1); PHOSPHORUS 2.6 MG/DL (2.3-4.7); POTASSIUM 4.7 mmol/L (3.5-5.1)
[2021-04-21] MEDS: INSULIN REGULAR, HUMAN 100 UNIT/1 ML SQ SCH ×3 (07:30→16:43)
[2021-04-21 07:55] VITALS: BP 166/59
[2021-04-21] MEDS: FENOFIBRATE 48 MG TAB PO SCH (09:00)
[2021-04-21] MEDS: FERROUS SULFATE 325 MG TAB PO SCH ×2 (09:00→17:53)
[2021-04-21] MEDS: FINASTERIDE 5 MG TAB PO SCH (09:00)
[2021-04-21] MEDS: TAMSULOSIN HCL 0.4 MG CAP PO SCH (09:00)
[2021-04-21] MEDS: MYCOPHENOLATE MOFETIL 250 MG CAP PO SCH ×2 (09:00→17:52)
[2021-04-21] MEDS: PREDNISONE 5 MG TAB PO SCH (09:00)
[2021-04-21] MEDS: GABAPENTIN 300 MG CAP PO SCH (09:00)
[2021-04-21] MEDS: ISOSORBIDE DINITRATE 20 MG TAB PO SCH ×2 (09:00→17:53)
[2021-04-21] MEDS: FUROSEMIDE INJ 10 MG/ML 2 ML VIAL IV SCH ×2 (09:00→17:52)
[2021-04-21] MEDS: CARVEDILOL 12.5 MG TAB PO SCH ×2 (09:00→17:53)
[2021-04-21] MEDS: MECLIZINE HCL 12.5 MG TAB PO SCH ×2 (09:00→15:00)
[2021-04-21 09:37] VITALS: BP 166/59
[2021-04-21 11:25] VITALS: BP 190/80
[2021-04-21 16:00] VITALS: BP 155/60
[2021-04-21] MEDS ORDERED: ISORDIL20 MG PO (16:04)
[2021-04-21] MEDS ORDERED: LASIX20 MG PO (16:04)
[2021-04-21] MEDS ORDERED: LABETALOL HCL 5 MG/ML 20ML VIAL IV NR (16:30)
[2021-04-21] MEDS: TACROLIMUS 0.5 MG CAP PO SCH (17:53)
== END 2021-04-21 18:08 | disposition home or self-care (01) | DRG 291 ==
LOC: FSED 14:35 → ERHOLD 16:25 → MED/SURG2 20:32
PROVIDERS: ADMIT Internal Medicine; ATTEND Internal Medicine
DX: I13.2 Hypertensive heart and chronic kidney disease with heart failure and with stage 5 chronic kidney disease, or end stage renal disease (principal); I50.33 Acute on chronic diastolic (congestive) heart failure; N18.6 End stage renal disease; Z94.4 Liver transplant status; R09.02 Hypoxemia; E11.22 Type 2 diabetes mellitus with diabetic chronic kidney disease; Z99.2 Dependence on renal dialysis; Z95.5 Presence of coronary angioplasty implant and graft; Z88.6 Allergy status to analgesic agent; Z88.5 Allergy status to narcotic agent; Z91.048 Other nonmedicinal substance allergy status; E66.9 Obesity, unspecified; Z68.32 Body mass index [BMI] 32.0-32.9, adult; I25.10 Atherosclerotic heart disease of native coronary artery without angina pectoris; N40.0 Benign prostatic hyperplasia without lower urinary tract symptoms; R59.9 Enlarged lymph nodes, unspecified; Z20.822 Contact with and (suspected) exposure to COVID-19; Z79.82 Long term (current) use of aspirin; Z79.4 Long term (current) use of insulin
CPT/HCPCS: 36415; 71260; 80048; 80053; 80061; 80076; 82550; 82553; 82948; 83036; 83735; 83880; 84100; 84484; 85025; 85379; 93005; 93306; 96374; 96375; 99284; J0360; J0456; J1100; J1940; J7050; J7512; Q9967; U0002

== ENCOUNTER 2021-07-31 21:27 | Emergency (ER) | payer MEDICARE, OTHER ==
[~2021-07-31] VITALS: Ht 180.3 cm; Wt 106.6 kg
[~2021-07-31 21:27] MED LIST changes: +CARVEDILOL12.5 MG PO; +FINASTERIDE5 MG PO; +FLOMAX0.4 MG PO; +HYDRALAZINE HC100 MG PO; +ISORDIL20 MG PO; +LASIX20 MG PO; +MYCOPHENOLATE250 MG PO; +PREDNISONE5 MG PO; +TACROLIMUS0.5 GM; +TACROLIMUS0.5 MG PO; +TACROLIMUS1 MG PO; +VITAMIN B-650 MG PO
[2021-07-31 23:19] VITALS: BP 103/59
[2021-07-31] MEDS ORDERED: AZITHROMYCIN250 MG PO (23:19)
[2021-07-31] MEDS ORDERED: VENTOLIN HFA18 GM INH (23:19)
[2021-07-31] MEDS ORDERED: BROMFED DM COU118 ML PO (23:19)
== END 2021-07-31 23:26 | disposition home or self-care (01) ==
LOC: ER 21:58
DX: U07.1 COVID-19 (principal); I10 Essential (primary) hypertension; R53.83 Other fatigue; Z94.0 Kidney transplant status; Z95.5 Presence of coronary angioplasty implant and graft
CPT/HCPCS: 99282; U0002

== ENCOUNTER 2021-10-03 18:12 | Inpatient (IN) | payer MEDICARE, OTHER ==
[~2021-10-03] VITALS: Ht 180.3 cm; Wt 106.6 kg
[~2021-10-03 18:12] MED LIST changes: +AZITHROMYCIN250 MG PO; +VENTOLIN HFA18 GM INH
[2021-10-03 19:07] LABS: BASOPHILS % 0.6 % (0.0-1.0); EOSINOPHILS % 0.3 % (0.0-6.0); HEMATOCRIT 32.5 % (38.2-49.6); HEMOGLOBIN 10.2 g/dL (14.0-18.0); LYMPHOCYTES % 14.2 % (18.0-39.1); MEAN CORPUSCULAR HGB CONC 31.4 g/dL (31-35); MONOCYTES # (AUTO) 0.7 (0.2-0.8); MONOCYTES % 10.2 % (4.4-11.3); NEUTROPHILS # (AUTO) 5.1 (2.1-6.9); NEUTROPHILS % 73.8 % (38.7-80.0); PLATELET COUNT 227 x10e3/uL (140-360); RED BLOOD COUNT 3.78 x10e6/uL (4.3-5.7); RED CELL DISTRIBUTION WIDTH 16.7 % (11.7-14.4)
[2021-10-03 21:33] LABS: ALBUMIN 2.9 g/dL (3.5-5.0); ALBUMIN/GLOBULIN RATIO 0.7 (0.8-2.0); ANION GAP 10.4 mmol/L (8-16); CALCIUM 9.7 mg/dL (8.4-10.2); CREATININE, SERUM 1.68 mg/dL (0.72-1.25)
[2021-10-03 21:35] LABS: POTASSIUM 5.4 mmol/L (3.5-5.1)
[2021-10-03 21:41] LABS: CREATINE KINASE MB 1.9 ng/mL (0-5.0)
[2021-10-03] MEDS ORDERED: SODIUM CHLORIDE FLUSH 10 ML SYR INJ PRN (22:30)
[2021-10-03] MEDS ORDERED: CEFTRIAXONE 2 GM in SODIUM CHLORIDE 0.9% 100 ML IV SCH (22:30)
[2021-10-03] MEDS ORDERED: DEXTROSE 50% SYRINGE 50 ML IV PRN (22:30)
[2021-10-03] MEDS ORDERED: SODIUM CHLORIDE 0.9% 1000ML 1,000 ML IV ONE (22:30)
[2021-10-03] MEDS ORDERED: ONDANSETRON HCL INJ 2MG/ML 2ML 2 MG/ML VIAL IV PRN (22:30)
[2021-10-03] MEDS: FUROSEMIDE INJ 10 MG/ML 4 ML VIAL IV SCH (22:50)
[2021-10-03] MEDS: INSULIN REGULAR, HUMAN 100 UNIT/1 ML SQ SCH (23:15)
[2021-10-04] VITALS (9 sets, daily range): BP systolic 158–189; BP diastolic 64–92
[2021-10-04] MEDS ORDERED: TACROLIMUS0.5 MG PO (00:40)
[2021-10-04] MEDS ORDERED: VITAMIN B-650 MG PO ×2 (00:46→00:47)
[2021-10-04] MEDS ORDERED: FAMOTIDINE20 MG PO (00:48)
[2021-10-04] MEDS ORDERED: ATORVASTATIN CA20 MG PO (00:50)
[2021-10-04] MEDS ORDERED: MAGNESIUM OXID400 MG PO (00:52)
[2021-10-04] MEDS ORDERED: PROBIOTIC & AC1 EACH PO (00:54)
[2021-10-04] MEDS ORDERED: FIBER PO (00:56)
[2021-10-04] MEDS ORDERED: GABAPENTIN300 MG PO (00:57)
[2021-10-04] MEDS ORDERED: [UNRECOGNIZED DRUG - OTHER] PO (00:58)
[2021-10-04] MEDS ORDERED: VITAMIN D PO (00:59)
[2021-10-04] MEDS ORDERED: Vancomycin IV 1 GM in SODIUM CHLORIDE 0.9% 250ML 250 ML IV ONE (01:15)
[2021-10-04] MEDS ORDERED: ACETAMINOPHEN 325 MG TAB PEG PRN (01:15)
[2021-10-04] MEDS ORDERED: GUAIFENESIN/DEXTROMETHORPHAN LIQD 5 ML UDC PO PRN (01:15)
[2021-10-04] MEDS ORDERED: MELATONIN 3 MG TAB PO PRN (01:15)
[2021-10-04] MEDS ORDERED: ALBUTEROL SULF 0.083% NEB SOLN 3 ML NEB NEB PRN (01:15)
[2021-10-04] MEDS ORDERED: SODIUM CHLORIDE 0.9% 250ML 250 ML ONE (01:53)
[2021-10-04 02:25] LABS: CLARITY,URINE CLEAR (CLEAR); COLOR,URINE YELLOW (YELLOW); KETONES,URINE NEGATIVE (NEGATIVE); LEUKOCYTE ESTERASE ,URINE SMALL (NEGATIVE); NITRITE,URINE NEGATIVE (NEGATIVE); PROTEIN,URINE DIPSTICK NEGATIVE (NEGATIVE); URINE UROBILINOGEN 0.2 mg/dL (0.2 - 1)
[2021-10-04 02:27] LABS: BACTERIA,URINE FEW /HPF; EPITHELIAL CELLS,URINE RARE /LPF
[2021-10-04 02:40] LABS: CREATININE,URINE RANDOM 14.39 mg/dL (63-166); SODIUM,URINE 111 mmol/L
[2021-10-04 05:03] LABS: BASOPHILS % 0.4 % (0.0-1.0); EOSINOPHILS % 0.3 % (0.0-6.0); HEMATOCRIT 32.9 % (38.2-49.6); HEMOGLOBIN 10.3 g/dL (14.0-18.0); LYMPHOCYTES # (AUTO) 0.6 (1.0-3.2); LYMPHOCYTES % 8.3 % (18.0-39.1); MEAN CORPUSCULAR HGB CONC 31.3 g/dL (31-35); MEAN CORPUSCULAR VOLUME 86.1 fL (81-99); MONOCYTES # (AUTO) 0.6 (0.2-0.8); MONOCYTES % 7.5 % (4.4-11.3); NEUTROPHILS % 82.1 % (38.7-80.0); PLATELET COUNT 216 x10e3/uL (140-360); RED BLOOD COUNT 3.82 x10e6/uL (4.3-5.7); RED CELL DISTRIBUTION WIDTH 16.6 % (11.7-14.4)
[2021-10-04] MEDS: FUROSEMIDE INJ 10 MG/ML 4 ML VIAL IV SCH ×3 (05:17→21:10)
[2021-10-04 05:36] LABS: ALBUMIN 2.9 g/dL (3.5-5.0); ALBUMIN/GLOBULIN RATIO 0.6 (0.8-2.0); ANION GAP 12.7 mmol/L (8-16); CALCIUM 9.8 mg/dL (8.4-10.2); CREATININE, SERUM 1.46 mg/dL (0.72-1.25); POTASSIUM 4.7 mmol/L (3.5-5.1)
[2021-10-04 05:54] LABS: CREATINE KINASE MB 1.7 ng/mL (0-5.0)
[2021-10-04 06:33] LABS: FERRITIN 462.58 ng/mL (21.81-274.66); FREE THYROXINE INDEX 1.7553 (1.4-3.8); THYROID STIMULATING HORMONE 7.862 uIU/mL (0.350-4.940)
[2021-10-04] MEDS ORDERED: ONDANSETRON HCL 4 MG ORAL DISINTEGRATING TAB PO PRN (07:15)
[2021-10-04] MEDS: INSULIN REGULAR, HUMAN 100 UNIT/1 ML SQ SCH ×4 (07:30→21:07)
[2021-10-04] MEDS: ASPIRIN 325 MG TAB PO SCH (09:00)
[2021-10-04] MEDS: CEFEPIME 1 GM in SODIUM CHLORIDE 0.9% 50ML 50 ML IV SCH ×2 (09:00→21:10)
[2021-10-04] MEDS ORDERED: CARVEDILOL 12.5 MG TAB PO SCH (09:00)
[2021-10-04] MEDS: MYCOPHENOLATE MOFETIL 250 MG CAP PO SCH ×2 (09:00→17:12)
[2021-10-04] MEDS: FERROUS SULFATE 325 MG TAB PO SCH ×2 (09:01→17:13)
[2021-10-04] MEDS: TAMSULOSIN HCL 0.4 MG CAP PO SCH (09:01)
[2021-10-04] MEDS: GABAPENTIN 300 MG CAP PO SCH ×2 (09:02→17:13)
[2021-10-04] MEDS: ASCORBIC ACID 500 MG TAB PO SCH ×2 (09:02→17:13)
[2021-10-04] MEDS: HYDRALAZINE HCL 100 MG TABLET PO SCH ×3 (09:02→21:10)
[2021-10-04] MEDS: PREDNISONE 5 MG TAB PO SCH (09:02)
[2021-10-04] MEDS: FAMOTIDINE 20 MG TAB PO SCH (09:02)
[2021-10-04] MEDS: ISOSORBIDE DINITRATE 20 MG TAB PO SCH ×2 (09:02→17:13)
[2021-10-04] MEDS: FINASTERIDE 5 MG TAB PO SCH (09:02)
[2021-10-04] MEDS: TACROLIMUS 1 MG CAP PO SCH ×2 (09:02→21:10)
[2021-10-04] MEDS: MULTIVITAMINS/MINERALS TAB PO SCH (09:02)
[2021-10-04] MEDS: ZINC SULFATE 50 MG CAP PO SCH (09:02)
[2021-10-04] MEDS: HYDRALAZINE HCL 20 MG/ML VIAL IV PRN (12:22)
[2021-10-04 14:16] LABS: CREATINE KINASE MB 1.2 ng/mL (0-5.0)
[2021-10-04] MEDS: CARVEDILOL 12.5 MG TAB PO SCH (17:12)
[2021-10-04] MEDS: ENOXAPARIN SOD INJ 40 MG/0.4 ML SYR SC SCH (17:13)
[2021-10-04] MEDS: LINEZOLID 600 MG/D5W 300ML 300 ML IV SCH (17:37)
[2021-10-04] MEDS ORDERED: AZITHROMYCIN 250 MG TAB PO SCH (21:00)
[2021-10-04] MEDS: ATORVASTATIN 20 MG TAB PO SCH (21:10)
[2021-10-05] VITALS (8 sets, daily range): BP systolic 123–179; BP diastolic 51–79
[2021-10-05] MEDS: LINEZOLID 600 MG/D5W 300ML 300 ML IV SCH ×2 (05:12→18:11)
[2021-10-05] MEDS: FUROSEMIDE INJ 10 MG/ML 4 ML VIAL IV SCH ×3 (05:12→22:00)
[2021-10-05 07:16] LABS: BASOPHILS % 0.1 % (0.0-1.0); EOSINOPHILS % 0.3 % (0.0-6.0); HEMOGLOBIN 10.1 g/dL (14.0-18.0); LYMPHOCYTES # (AUTO) 0.5 (1.0-3.2); MEAN CORPUSCULAR HGB CONC 31.6 g/dL (31-35); MEAN CORPUSCULAR VOLUME 85.6 fL (81-99); MONOCYTES # (AUTO) 0.5 (0.2-0.8); MONOCYTES % 7.2 % (4.4-11.3); NEUTROPHILS # (AUTO) 5.6 (2.1-6.9); NEUTROPHILS % 82.9 % (38.7-80.0); PLATELET COUNT 227 x10e3/uL (140-360); RED BLOOD COUNT 3.74 x10e6/uL (4.3-5.7); RED CELL DISTRIBUTION WIDTH 16.7 % (11.7-14.4)
[2021-10-05] MEDS: INSULIN REGULAR, HUMAN 100 UNIT/1 ML SQ SCH ×4 (07:30→22:00)
[2021-10-05 07:43] LABS: ANION GAP 12.3 mmol/L (8-16); CALCIUM 9.5 mg/dL (8.4-10.2); CREATININE, SERUM 1.41 mg/dL (0.72-1.25); PHOSPHORUS 3.1 MG/DL (2.3-4.7); POTASSIUM 4.3 mmol/L (3.5-5.1)
[2021-10-05] MEDS: CARVEDILOL 12.5 MG TAB PO SCH ×2 (08:00→18:10)
[2021-10-05 08:24] LABS: CREATINE KINASE MB 0.6 ng/mL (0-5.0)
[2021-10-05] MEDS: TAMSULOSIN HCL 0.4 MG CAP PO SCH (09:00)
[2021-10-05] MEDS: CEFEPIME 1 GM in SODIUM CHLORIDE 0.9% 50ML 50 ML IV SCH ×2 (09:00→22:00)
[2021-10-05] MEDS: FINASTERIDE 5 MG TAB PO SCH (09:00)
[2021-10-05] MEDS: ZINC SULFATE 50 MG CAP PO SCH (09:00)
[2021-10-05] MEDS: ASPIRIN 325 MG TAB PO SCH (09:00)
[2021-10-05] MEDS: PREDNISONE 5 MG TAB PO SCH (09:00)
[2021-10-05] MEDS: ASCORBIC ACID 500 MG TAB PO SCH ×2 (09:00→18:11)
[2021-10-05] MEDS: FERROUS SULFATE 325 MG TAB PO SCH ×2 (09:00→18:10)
[2021-10-05] MEDS: ISOSORBIDE DINITRATE 20 MG TAB PO SCH ×2 (09:00→18:11)
[2021-10-05] MEDS: FAMOTIDINE 20 MG TAB PO SCH (09:00)
[2021-10-05] MEDS: GABAPENTIN 300 MG CAP PO SCH ×2 (09:00→18:11)
[2021-10-05] MEDS: MULTIVITAMINS/MINERALS TAB PO SCH (09:00)
[2021-10-05] MEDS: MYCOPHENOLATE MOFETIL 250 MG CAP PO SCH ×2 (09:00→18:09)
[2021-10-05] MEDS: TACROLIMUS 1 MG CAP PO SCH ×2 (09:00→22:00)
[2021-10-05] MEDS: HYDRALAZINE HCL 100 MG TABLET PO SCH ×4 (11:15→23:59)
[2021-10-05] MEDS: ENOXAPARIN SOD INJ 40 MG/0.4 ML SYR SC SCH (18:11)
[2021-10-05] MEDS: ATORVASTATIN 20 MG TAB PO SCH (22:00)
[2021-10-05] MEDS: HYDRALAZINE HCL 20 MG/ML VIAL IV PRN (22:00)
[2021-10-06] VITALS (8 sets, daily range): BP systolic 91–146; BP diastolic 49–60
[2021-10-06 06:16] LABS: BASOPHILS % 0.3 % (0.0-1.0); EOSINOPHILS # (AUTO) 0.2 (0.0-0.4); EOSINOPHILS % 2.2 % (0.0-6.0); HEMATOCRIT 30.9 % (38.2-49.6); HEMOGLOBIN 9.6 g/dL (14.0-18.0); LYMPHOCYTES # (AUTO) 0.9 (1.0-3.2); LYMPHOCYTES % 13.2 % (18.0-39.1); MEAN CORPUSCULAR HEMOGLOBIN 26.9 pg (28-32); MEAN CORPUSCULAR HGB CONC 31.1 g/dL (31-35); MEAN CORPUSCULAR VOLUME 86.6 fL (81-99); MONOCYTES # (AUTO) 0.5 (0.2-0.8); MONOCYTES % 7.6 % (4.4-11.3); NEUTROPHILS # (AUTO) 5.2 (2.1-6.9); NEUTROPHILS % 75.5 % (38.7-80.0); PLATELET COUNT 236 x10e3/uL (140-360); RED BLOOD COUNT 3.57 x10e6/uL (4.3-5.7); RED CELL DISTRIBUTION WIDTH 16.5 % (11.7-14.4)
[2021-10-06] MEDS: FUROSEMIDE INJ 10 MG/ML 4 ML VIAL IV SCH ×3 (06:30→21:46)
[2021-10-06] MEDS: LINEZOLID 600 MG/D5W 300ML 300 ML IV SCH (06:30)
[2021-10-06] MEDS: HYDRALAZINE HCL 100 MG TABLET PO SCH ×3 (06:30→17:22)
[2021-10-06 07:00] LABS: ALBUMIN 2.5 g/dL (3.5-5.0); ALBUMIN/GLOBULIN RATIO 0.5 (0.8-2.0); ANION GAP 12.7 mmol/L (8-16); CALCIUM 9.9 mg/dL (8.4-10.2); CREATININE, SERUM 1.49 mg/dL (0.72-1.25); POTASSIUM 4.7 mmol/L (3.5-5.1)
[2021-10-06] MEDS: MYCOPHENOLATE MOFETIL 250 MG CAP PO SCH ×2 (09:21→17:20)
[2021-10-06] MEDS: CARVEDILOL 12.5 MG TAB PO SCH ×2 (09:21→17:00)
[2021-10-06] MEDS: FERROUS SULFATE 325 MG TAB PO SCH ×2 (09:21→17:21)
[2021-10-06] MEDS: ASPIRIN 325 MG TAB PO SCH (09:21)
[2021-10-06] MEDS: CEFEPIME 1 GM in SODIUM CHLORIDE 0.9% 50ML 50 ML IV SCH (09:21)
[2021-10-06] MEDS: TAMSULOSIN HCL 0.4 MG CAP PO SCH (09:21)
[2021-10-06] MEDS: ISOSORBIDE DINITRATE 20 MG TAB PO SCH ×2 (09:22→17:00)
[2021-10-06] MEDS: MULTIVITAMINS/MINERALS TAB PO SCH (09:23)
[2021-10-06] MEDS: FINASTERIDE 5 MG TAB PO SCH (09:23)
[2021-10-06] MEDS: GABAPENTIN 300 MG CAP PO SCH ×2 (09:23→17:22)
[2021-10-06] MEDS: ASCORBIC ACID 500 MG TAB PO SCH ×2 (09:23→17:22)
[2021-10-06] MEDS: PREDNISONE 5 MG TAB PO SCH (09:23)
[2021-10-06] MEDS: TACROLIMUS 1 MG CAP PO SCH ×2 (09:23→21:46)
[2021-10-06] MEDS: ZINC SULFATE 50 MG CAP PO SCH (09:23)
[2021-10-06] MEDS: FAMOTIDINE 20 MG TAB PO SCH (09:23)
[2021-10-06] MEDS: INSULIN REGULAR, HUMAN 100 UNIT/1 ML SQ SCH ×4 (09:31→21:46)
[2021-10-06] MEDS: MEROPENEM 500 MG in SODIUM CHLORIDE 0.9% 50ML 50 ML IV SCH (14:13)
[2021-10-06] MEDS: ENOXAPARIN SOD INJ 40 MG/0.4 ML SYR SC SCH (17:22)
[2021-10-06] MEDS: ATORVASTATIN 20 MG TAB PO SCH (21:46)
[2021-10-07] VITALS (8 sets, daily range): BP systolic 139–179; BP diastolic 56–75
[2021-10-07] MEDS: HYDRALAZINE HCL 100 MG TABLET PO SCH ×4 (00:51→16:40)
[2021-10-07] MEDS: MEROPENEM 500 MG in SODIUM CHLORIDE 0.9% 50ML 50 ML IV SCH ×2 (00:51→13:00)
[2021-10-07] MEDS: FUROSEMIDE INJ 10 MG/ML 4 ML VIAL IV SCH ×3 (06:23→22:04)
[2021-10-07 07:07] LABS: BASOPHILS % 0.5 % (0.0-1.0); EOSINOPHILS # (AUTO) 0.2 (0.0-0.4); HEMATOCRIT 32.7 % (38.2-49.6); HEMOGLOBIN 10.1 g/dL (14.0-18.0); LYMPHOCYTES # (AUTO) 1.1 (1.0-3.2); LYMPHOCYTES % 19.5 % (18.0-39.1); MEAN CORPUSCULAR HEMOGLOBIN 26.6 pg (28-32); MEAN CORPUSCULAR HGB CONC 30.9 g/dL (31-35); MEAN CORPUSCULAR VOLUME 86.3 fL (81-99); MONOCYTES # (AUTO) 0.5 (0.2-0.8); MONOCYTES % 8.6 % (4.4-11.3); NEUTROPHILS # (AUTO) 3.8 (2.1-6.9); NEUTROPHILS % 66.5 % (38.7-80.0); PLATELET COUNT 248 x10e3/uL (140-360); RED BLOOD COUNT 3.79 x10e6/uL (4.3-5.7); RED CELL DISTRIBUTION WIDTH 16.4 % (11.7-14.4)
[2021-10-07 07:25] LABS: ALBUMIN 2.6 g/dL (3.5-5.0); ALBUMIN/GLOBULIN RATIO 0.6 (0.8-2.0); ANION GAP 13.3 mmol/L (8-16); CALCIUM 9.8 mg/dL (8.4-10.2); CREATININE, SERUM 1.54 mg/dL (0.72-1.25); POTASSIUM 4.3 mmol/L (3.5-5.1)
[2021-10-07] MEDS: INSULIN REGULAR, HUMAN 100 UNIT/1 ML SQ SCH ×3 (08:00→16:48)
[2021-10-07] MEDS: MYCOPHENOLATE MOFETIL 250 MG CAP PO SCH ×2 (08:58→16:39)
[2021-10-07] MEDS: CARVEDILOL 12.5 MG TAB PO SCH ×2 (08:58→16:40)
[2021-10-07] MEDS: ASPIRIN 325 MG TAB PO SCH (08:58)
[2021-10-07] MEDS: FERROUS SULFATE 325 MG TAB PO SCH ×2 (08:59→16:40)
[2021-10-07] MEDS: TAMSULOSIN HCL 0.4 MG CAP PO SCH (08:59)
[2021-10-07] MEDS: ISOSORBIDE DINITRATE 20 MG TAB PO SCH ×2 (08:59→16:40)
[2021-10-07] MEDS: PREDNISONE 5 MG TAB PO SCH (09:00)
[2021-10-07] MEDS: FINASTERIDE 5 MG TAB PO SCH (09:00)
[2021-10-07] MEDS: ZINC SULFATE 50 MG CAP PO SCH (09:00)
[2021-10-07] MEDS: MULTIVITAMINS/MINERALS TAB PO SCH (09:00)
[2021-10-07] MEDS: TACROLIMUS 1 MG CAP PO SCH ×2 (09:00→21:55)
[2021-10-07] MEDS: FAMOTIDINE 20 MG TAB PO SCH (09:00)
[2021-10-07] MEDS: ASCORBIC ACID 500 MG TAB PO SCH ×2 (09:00→16:40)
[2021-10-07] MEDS: GABAPENTIN 300 MG CAP PO SCH ×2 (09:00→16:40)
[2021-10-07 10:46] LABS: INR 1.18
[2021-10-07] MEDS ORDERED: SODIUM CHLORIDE 0.9% 250ML 250 ML ONE (13:00)
[2021-10-07] MEDS ORDERED: LIDOCAINE HCL 1% LOCAL INJ 20 ML VIAL ONE (13:00)
[2021-10-07] MEDS: ENOXAPARIN SOD INJ 40 MG/0.4 ML SYR SC SCH (16:40)
[2021-10-07] MEDS: ATORVASTATIN 20 MG TAB PO SCH (21:55)
[2021-10-07] MEDS: INSULIN LISPRO 100 UNIT/1 ML 3ML VIAL SQ SCH (21:55)
[2021-10-07] MEDS: AMLODIPINE BESYLATE 5 MG TAB PO SCH (21:55)
[2021-10-08] VITALS (8 sets, daily range): BP systolic 124–170; BP diastolic 54–69
[2021-10-08] MEDS: HYDRALAZINE HCL 100 MG TABLET PO SCH ×4 (00:13→16:12)
[2021-10-08] MEDS: MEROPENEM 500 MG in SODIUM CHLORIDE 0.9% 50ML 50 ML IV SCH ×2 (00:19→14:48)
[2021-10-08] MEDS: FUROSEMIDE INJ 10 MG/ML 4 ML VIAL IV SCH ×2 (05:20→14:48)
[2021-10-08 06:53] LABS: ANION GAP 15.4 mmol/L (8-16); CALCIUM 10.1 mg/dL (8.4-10.2); CREATININE, SERUM 1.39 mg/dL (0.72-1.25); POTASSIUM 4.4 mmol/L (3.5-5.1)
[2021-10-08 06:54] LABS: BASOPHILS % 0.6 % (0.0-1.0); EOSINOPHILS # (AUTO) 0.2 (0.0-0.4); EOSINOPHILS % 3.4 % (0.0-6.0); HEMATOCRIT 33.9 % (38.2-49.6); HEMOGLOBIN 10.4 g/dL (14.0-18.0); LYMPHOCYTES # (AUTO) 1.2 (1.0-3.2); LYMPHOCYTES % 22.3 % (18.0-39.1); MEAN CORPUSCULAR HEMOGLOBIN 26.7 pg (28-32); MEAN CORPUSCULAR HGB CONC 30.7 g/dL (31-35); MEAN CORPUSCULAR VOLUME 87.1 fL (81-99); MONOCYTES # (AUTO) 0.5 (0.2-0.8); MONOCYTES % 9.4 % (4.4-11.3); NEUTROPHILS # (AUTO) 3.4 (2.1-6.9); NEUTROPHILS % 63.9 % (38.7-80.0); PLATELET COUNT 270 x10e3/uL (140-360); RED BLOOD COUNT 3.89 x10e6/uL (4.3-5.7); RED CELL DISTRIBUTION WIDTH 16.3 % (11.7-14.4)
[2021-10-08 07:09] LABS: ALBUMIN 2.7 g/dL (3.5-5.0); ALBUMIN/GLOBULIN RATIO 0.6 (0.8-2.0)
[2021-10-08] MEDS: INSULIN LISPRO 100 UNIT/1 ML 3ML VIAL SQ SCH ×4 (07:30→21:55)
[2021-10-08] MEDS: CARVEDILOL 12.5 MG TAB PO SCH ×2 (08:00→16:10)
[2021-10-08] MEDS: GABAPENTIN 300 MG CAP PO SCH ×2 (09:00→16:12)
[2021-10-08] MEDS: ISOSORBIDE DINITRATE 20 MG TAB PO SCH ×2 (09:00→16:11)
[2021-10-08] MEDS: ASCORBIC ACID 500 MG TAB PO SCH ×2 (09:00→16:12)
[2021-10-08] MEDS: FERROUS SULFATE 325 MG TAB PO SCH ×2 (09:00→16:10)
[2021-10-08] MEDS ORDERED: SODIUM CHLORIDE 0.9% 250ML 250 ML ONE (12:32)
[2021-10-08] MEDS ORDERED: FENTANYL CITRATE/PF 100MCG/2 ML INJ ONE (12:32)
[2021-10-08] MEDS ORDERED: MIDAZOLAM HCL 2 MG/2 ML VIAL ONE (12:32)
[2021-10-08] MEDS: TAMSULOSIN HCL 0.4 MG CAP PO SCH (14:45)
[2021-10-08] MEDS: MYCOPHENOLATE MOFETIL 250 MG CAP PO SCH ×2 (14:45→16:10)
[2021-10-08] MEDS: ASPIRIN 325 MG TAB PO SCH (14:45)
[2021-10-08] MEDS: MULTIVITAMINS/MINERALS TAB PO SCH (14:46)
[2021-10-08] MEDS: ZINC SULFATE 50 MG CAP PO SCH (14:47)
[2021-10-08] MEDS: FAMOTIDINE 20 MG TAB PO SCH (14:47)
[2021-10-08] MEDS: PREDNISONE 5 MG TAB PO SCH (14:47)
[2021-10-08] MEDS: FINASTERIDE 5 MG TAB PO SCH (14:47)
[2021-10-08] MEDS: TACROLIMUS 1 MG CAP PO SCH ×2 (14:47→22:06)
[2021-10-08] MEDS: ENOXAPARIN SOD INJ 40 MG/0.4 ML SYR SC SCH (16:12)
[2021-10-08] MEDS ORDERED: INSULIN LISPRO 100 UNIT/1 ML 3ML VIAL SQ ONE (16:55)
[2021-10-08] MEDS: INSULIN GLARGINE 100 UNITS/ML VIAL SQ SCH (17:39)
[2021-10-08] MEDS: AMLODIPINE BESYLATE 5 MG TAB PO SCH (22:06)
[2021-10-08] MEDS: ATORVASTATIN 20 MG TAB PO SCH (22:06)
[2021-10-09] VITALS: BP 164/72
[2021-10-09] MEDS: MEROPENEM 500 MG in SODIUM CHLORIDE 0.9% 50ML 50 ML IV SCH ×2 (00:58→13:10)
[2021-10-09] MEDS: HYDRALAZINE HCL 100 MG TABLET PO SCH ×3 (00:58→13:10)
[2021-10-09 04:00] VITALS: BP 137/54
[2021-10-09 06:12] LABS: BASOPHILS % 0.7 % (0.0-1.0); EOSINOPHILS # (AUTO) 0.1 (0.0-0.4); EOSINOPHILS % 1.8 % (0.0-6.0); HEMATOCRIT 34.1 % (38.2-49.6); HEMOGLOBIN 10.5 g/dL (14.0-18.0); LYMPHOCYTES # (AUTO) 1.3 (1.0-3.2); LYMPHOCYTES % 23.3 % (18.0-39.1); MEAN CORPUSCULAR HEMOGLOBIN 26.6 pg (28-32); MEAN CORPUSCULAR HGB CONC 30.8 g/dL (31-35); MEAN CORPUSCULAR VOLUME 86.3 fL (81-99); MONOCYTES # (AUTO) 0.6 (0.2-0.8); MONOCYTES % 10.6 % (4.4-11.3); NEUTROPHILS # (AUTO) 3.5 (2.1-6.9); NEUTROPHILS % 62.7 % (38.7-80.0); PLATELET COUNT 257 x10e3/uL (140-360); RED BLOOD COUNT 3.95 x10e6/uL (4.3-5.7)
[2021-10-09 06:33] LABS: ALBUMIN 2.7 g/dL (3.5-5.0); ALBUMIN/GLOBULIN RATIO 0.6 (0.8-2.0); ANION GAP 12.4 mmol/L (8-16); CALCIUM 10.1 mg/dL (8.4-10.2); CREATININE, SERUM 1.38 mg/dL (0.72-1.25); POTASSIUM 4.4 mmol/L (3.5-5.1)
[2021-10-09] MEDS: INSULIN GLARGINE 100 UNITS/ML VIAL SQ SCH (09:00)
[2021-10-09] MEDS: INSULIN LISPRO 100 UNIT/1 ML 3ML VIAL SQ SCH ×2 (09:00→13:14)
[2021-10-09] MEDS: ASPIRIN 325 MG TAB PO SCH (09:16)
[2021-10-09] MEDS: TAMSULOSIN HCL 0.4 MG CAP PO SCH (09:16)
[2021-10-09] MEDS: CARVEDILOL 12.5 MG TAB PO SCH (09:16)
[2021-10-09] MEDS: MYCOPHENOLATE MOFETIL 250 MG CAP PO SCH (09:16)
[2021-10-09] MEDS: FERROUS SULFATE 325 MG TAB PO SCH (09:16)
[2021-10-09] MEDS: ISOSORBIDE DINITRATE 20 MG TAB PO SCH (09:17)
[2021-10-09] MEDS: FINASTERIDE 5 MG TAB PO SCH (09:17)
[2021-10-09] MEDS: ZINC SULFATE 50 MG CAP PO SCH (09:17)
[2021-10-09] MEDS: GABAPENTIN 300 MG CAP PO SCH (09:17)
[2021-10-09] MEDS: MULTIVITAMINS/MINERALS TAB PO SCH (09:17)
[2021-10-09] MEDS: FAMOTIDINE 20 MG TAB PO SCH (09:17)
[2021-10-09] MEDS: PREDNISONE 5 MG TAB PO SCH (09:17)
[2021-10-09] MEDS: ASCORBIC ACID 500 MG TAB PO SCH (09:17)
[2021-10-09] MEDS: TACROLIMUS 1 MG CAP PO SCH (09:17)
[2021-10-09 09:37] VITALS: BP 136/56
[2021-10-09] MEDS ORDERED: ALBUMIN 25% 12.5GM 50ML 100 ML IV ONE (09:41)
[2021-10-09 10:19] VITALS: BP 136/56
[2021-10-09 10:35] VITALS: BP 136/56
[2021-10-09] MEDS ORDERED: MECLIZINE HCL 12.5 MG TAB PO PRN (11:15)
[2021-10-09 12:24] VITALS: BP 154/60
== END 2021-10-09 15:00 | DRG 177 ==
LOC: ER 18:17 → ERHOLD 22:30 → MED/SURG2 23:35
PROVIDERS: ADMIT Internal Medicine; ATTEND Internal Medicine
PROC: 0JH63XZ Insertion of Tunneled Vascular Access Device into Chest Subcutaneous Tissue and Fascia, Percutaneous Approach (ICD-10-PCS; principal; 2021-10-08)
PROC: 02H633Z Insertion of Infusion Device into Right Atrium, Percutaneous Approach (ICD-10-PCS; 2021-10-08)
DX: U07.1 COVID-19 (principal); J96.01 Acute respiratory failure with hypoxia; J12.82 Pneumonia due to coronavirus disease 2019; I50.33 Acute on chronic diastolic (congestive) heart failure; I96 Gangrene, not elsewhere classified; E11.52 Type 2 diabetes mellitus with diabetic peripheral angiopathy with gangrene; D84.81 Immunodeficiency due to conditions classified elsewhere; Z94.0 Kidney transplant status; N39.0 Urinary tract infection, site not specified; N17.9 Acute kidney failure, unspecified; Z16.12 Extended spectrum beta lactamase (ESBL) resistance; N13.6 Pyonephrosis; I13.0 Hypertensive heart and chronic kidney disease with heart failure and stage 1 through stage 4 chronic kidney disease, or unspecified chronic kidney disease; E11.22 Type 2 diabetes mellitus with diabetic chronic kidney disease; E66.9 Obesity, unspecified; Z95.5 Presence of coronary angioplasty implant and graft; Z68.32 Body mass index [BMI] 32.0-32.9, adult; Z95.820 Peripheral vascular angioplasty status with implants and grafts; E87.5 Hyperkalemia; D63.8 Anemia in other chronic diseases classified elsewhere; N40.0 Benign prostatic hyperplasia without lower urinary tract symptoms; B96.4 Proteus (mirabilis) (morganii) as the cause of diseases classified elsewhere; N18.32 Chronic kidney disease, stage 3b
CPT/HCPCS: 36415; 36558; 71045; 71046; 74470; 76937; 77001; 78580; 80048; 80053; 80197; 81001; 82550; 82553; 82570; 82728; 82948; 83605; 83615; 83735; 83880; 84100; 84300; 84436; 84443; 84479; 84484; 85025; 85610; 86141; 87040; 87086; 87186; 93005; 93306; 94799; 99152; 99153; 99251; 99284; A9540; C1751; J0360; J0456; J0692; J0696; J1650; J1815; J1817; J1940; J2001; J2020; J2185; J2250; J3010; J3370; J7050; J7507; J7512; U0002

== ENCOUNTER 2021-10-25 14:20 | Emergency (ER) | payer MEDICARE, OTHER ==
[~2021-10-25] VITALS: Ht 170.2 cm; Wt 106.6 kg
[~2021-10-25 14:20] MED LIST changes: +ATORVASTATIN CA20 MG PO; +FAMOTIDINE20 MG PO; +FIBER PO; +GABAPENTIN300 MG PO; +MAGNESIUM OXID400 MG PO; +PROBIOTIC & AC1 EACH PO; +VITAMIN D PO; +[UNRECOGNIZED DRUG - OTHER] PO
== END 2021-10-25 16:44 | disposition home or self-care (01) ==
LOC: ER 16:03
DX: Z45.2 Encounter for adjustment and management of vascular access device (principal); I12.0 Hypertensive chronic kidney disease with stage 5 chronic kidney disease or end stage renal disease; E11.22 Type 2 diabetes mellitus with diabetic chronic kidney disease; N18.6 End stage renal disease; Z99.2 Dependence on renal dialysis; I50.9 Heart failure, unspecified
CPT/HCPCS: 36589; 71045; 74470; 99283

== ENCOUNTER 2022-08-04 19:39 | Inpatient (IN) | payer MEDICARE ==
[~2022-08-04] VITALS: Ht 175.3 cm; Wt 99.8 kg
[2022-08-04] MEDS ORDERED: ACETAMINOPHEN 325 MG TAB PO ONE (20:30)
[2022-08-04] MEDS ORDERED: SODIUM CHLORIDE 0.9% 1000ML 1,000 ML IV ONE ×2 (20:30→22:30)
[2022-08-04 20:42] LABS: BASOPHILS % 0.2 % (0.0-1.0); EOSINOPHILS % 0.1 % (0.0-6.0); HEMATOCRIT 46.3 % (38.2-49.6); LYMPHOCYTES # (AUTO) 0.5 (1.0-3.2); LYMPHOCYTES % 5.3 % (18.0-39.1); MEAN CORPUSCULAR HEMOGLOBIN 28.3 pg (28-32); MEAN CORPUSCULAR HGB CONC 30.2 g/dL (31-35); MEAN CORPUSCULAR VOLUME 93.5 fL (81-99); MONOCYTES # (AUTO) 0.6 (0.2-0.8); MONOCYTES % 6.1 % (4.4-11.3); NEUTROPHILS # (AUTO) 8.3 (2.1-6.9); NEUTROPHILS % 87.3 % (38.7-80.0); PLATELET COUNT 189 x10e3/uL (140-360); RED BLOOD COUNT 4.95 x10e6/uL (4.3-5.7)
[2022-08-04 20:50] LABS: CLARITY,URINE CLOUDY (CLEAR); COLOR,URINE AMBER (YELLOW); KETONES,URINE NEGATIVE (NEGATIVE); LEUKOCYTE ESTERASE ,URINE SMALL (NEGATIVE); NITRITE,URINE NEGATIVE (NEGATIVE); PROTEIN,URINE DIPSTICK >=300 (NEGATIVE); URINE UROBILINOGEN 1 mg/dL (0.2 - 1)
[2022-08-04 20:58] LABS: ALBUMIN/GLOBULIN RATIO 0.8 (0.8-2.0); ANION GAP 16.7 mmol/L (8-16); CALCIUM 9.9 mg/dL (8.4-10.2); CREATININE, SERUM 1.12 mg/dL (0.72-1.25); POTASSIUM 4.7 mmol/L (3.5-5.1)
[2022-08-04 21:01] LABS: BACTERIA,URINE MODERATE /HPF; RBC,URINE >50 /HPF (0-5); WBC,URINE (MAN) 0-5 /HPF (0-5)
[2022-08-04] MEDS ORDERED: ONDANSETRON HCL INJ 2MG/ML 2ML 2 MG/ML VIAL IV PRN (22:30)
[2022-08-04] MEDS ORDERED: ACETAMINOPHEN 325 MG TAB PO PRN (22:30)
[2022-08-04] MEDS ORDERED: DEXTROSE 50% SYRINGE 50 ML IV PRN (22:30)
[2022-08-04 22:49] LABS: CREATINE KINASE MB 1.3 ng/mL (0-5.0)
[2022-08-05] VITALS (9 sets, daily range): BP systolic 121–193; BP diastolic 59–101
[2022-08-05] MEDS ORDERED: ATORVASTATIN CA10 MG PO (04:42)
[2022-08-05] MEDS ORDERED: FUROSEMIDE40 MG PO (04:42)
[2022-08-05] MEDS ORDERED: VITAMIN B-650 MG PO (04:42)
[2022-08-05] MEDS ORDERED: NEURONTIN300 MG PO (04:42)
[2022-08-05] MEDS ORDERED: HYDRALAZINE HCL25 MG PO (04:42)
[2022-08-05] MEDS ORDERED: FAMOTIDINE20 MG PO (04:42)
[2022-08-05] MEDS ORDERED: MAGNESIUM OXID400 MG PO (04:42)
[2022-08-05] MEDS ORDERED: TACROLIMUS1 MG PO ×2 (04:42)
[2022-08-05] MEDS ORDERED: ISOSORBIDE DINI20 MG PO (04:42)
[2022-08-05] MEDS ORDERED: CARVEDILOL12.5 MG PO (04:42)
[2022-08-05] MEDS ORDERED: MECLIZINE HCL12.5 MG PO (04:42)
[2022-08-05] MEDS ORDERED: LEVOTHYROXINE50 MCG PO (04:42)
[2022-08-05] MEDS ORDERED: MYCOPHENOLATE250 MG PO (04:42)
[2022-08-05] MEDS ORDERED: PREDNISONE5 MG PO (04:42)
[2022-08-05] MEDS ORDERED: NOVOLOG100 UNIT/1 SC (04:42)
[2022-08-05] MEDS ORDERED: FLOMAX0.4 MG PO (04:42)
[2022-08-05] MEDS ORDERED: FINASTERIDE5 MG PO (04:42)
[2022-08-05] MEDS ORDERED: PROBIOTIC & AC1 EACH PO (04:43)
[2022-08-05] MEDS ORDERED: VITAMIN D3250 MCG BLADIN (04:43)
[2022-08-05] MEDS ORDERED: OMEGA 3 1,0001 EACH PO (04:43)
[2022-08-05] MEDS ORDERED: FIBER 6 TABLE1000 MG (04:43)
[2022-08-05] MEDS ORDERED: ASPIRIN CHEW81 MG PO (04:43)
[2022-08-05 05:34] LABS: BASOPHILS % 0.2 % (0.0-1.0); HEMATOCRIT 42.5 % (38.2-49.6); HEMOGLOBIN 12.9 g/dL (14.0-18.0); LYMPHOCYTES # (AUTO) 0.8 (1.0-3.2); LYMPHOCYTES % 8.7 % (18.0-39.1); MEAN CORPUSCULAR HEMOGLOBIN 28.3 pg (28-32); MEAN CORPUSCULAR HGB CONC 30.4 g/dL (31-35); MEAN CORPUSCULAR VOLUME 93.2 fL (81-99); MONOCYTES # (AUTO) 0.6 (0.2-0.8); MONOCYTES % 5.9 % (4.4-11.3); NEUTROPHILS # (AUTO) 7.5 (2.1-6.9); NEUTROPHILS % 78.8 % (38.7-80.0); PLATELET COUNT 155 x10e3/uL (140-360); RED BLOOD COUNT 4.56 x10e6/uL (4.3-5.7); RED CELL DISTRIBUTION WIDTH 13.4 % (11.7-14.4)
[2022-08-05 06:01] LABS: CREATINE KINASE MB 0.9 ng/mL (0-5.0)
[2022-08-05 06:09] LABS: ALBUMIN 3.4 g/dL (3.5-5.0); ALBUMIN/GLOBULIN RATIO 0.8 (0.8-2.0); ANION GAP 12.2 mmol/L (8-16); CALCIUM 9.3 mg/dL (8.4-10.2); CREATININE, SERUM 1.03 mg/dL (0.72-1.25); POTASSIUM 4.2 mmol/L (3.5-5.1)
[2022-08-05] MEDS: ISOSORBIDE DINITRATE 20 MG TAB PO SCH ×2 (08:51→17:16)
[2022-08-05] MEDS: TAMSULOSIN HCL 0.4 MG CAP PO SCH (08:51)
[2022-08-05] MEDS: FINASTERIDE 5 MG TAB PO SCH (08:51)
[2022-08-05] MEDS: GABAPENTIN 300 MG CAP PO SCH ×2 (08:52→17:16)
[2022-08-05] MEDS: HYDRALAZINE HCL 25 MG TAB PO SCH ×3 (08:52→21:11)
[2022-08-05] MEDS: FAMOTIDINE 20 MG TAB PO SCH ×2 (08:52→17:15)
[2022-08-05] MEDS: INSULIN REGULAR, HUMAN 100 UNIT/1 ML SQ SCH ×4 (08:58→21:00)
[2022-08-05] MEDS ORDERED: MYCOPHENOLATE MOFETIL 250 MG CAP PO SCH (09:00)
[2022-08-05] MEDS ORDERED: TOPIRAMATE100 MG PO ×2 (09:01)
[2022-08-05] MEDS: MYCOPHENOLATE MOFETIL 250 MG CAP PO SCH ×2 (10:01→21:12)
[2022-08-05] MEDS: CARVEDILOL 12.5 MG TAB PO SCH ×2 (10:01→17:16)
[2022-08-05] MEDS ORDERED: ONDANSETRON HCL 4 MG ORAL DISINTEGRATING TAB PO PRN (10:45)
[2022-08-05 14:21] LABS: CREATINE KINASE MB 0.9 ng/mL (0-5.0)
[2022-08-05] MEDS: TACROLIMUS 1 MG CAP PO SCH (21:13)
[2022-08-06] VITALS (7 sets, daily range): BP systolic 109–197; BP diastolic 67–75
[2022-08-06] MEDS: LEVOTHYROXINE SODIUM 100 MCG TAB PO SCH (05:41)
[2022-08-06] MEDS ORDERED: TACROLIMUS 0.5 MG CAP PO SCH (06:00)
[2022-08-06 07:48] LABS: BASOPHILS % 0.2 % (0.0-1.0); EOSINOPHILS % 0.7 % (0.0-6.0); HEMATOCRIT 41.2 % (38.2-49.6); HEMOGLOBIN 12.9 g/dL (14.0-18.0); LYMPHOCYTES # (AUTO) 1.1 (1.0-3.2); LYMPHOCYTES % 18.7 % (18.0-39.1); MEAN CORPUSCULAR HEMOGLOBIN 28.2 pg (28-32); MEAN CORPUSCULAR HGB CONC 31.3 g/dL (31-35); MONOCYTES # (AUTO) 0.6 (0.2-0.8); MONOCYTES % 10.1 % (4.4-11.3); NEUTROPHILS # (AUTO) 4.1 (2.1-6.9); NEUTROPHILS % 67.6 % (38.7-80.0); PLATELET COUNT 151 x10e3/uL (140-360); RED BLOOD COUNT 4.58 x10e6/uL (4.3-5.7); RED CELL DISTRIBUTION WIDTH 14.3 % (11.7-14.4)
[2022-08-06 08:08] LABS: ANION GAP 14.2 mmol/L (8-16); CALCIUM 9.7 mg/dL (8.4-10.2); CREATININE, SERUM 1.07 mg/dL (0.72-1.25); POTASSIUM 4.2 mmol/L (3.5-5.1)
[2022-08-06] MEDS: INSULIN REGULAR, HUMAN 100 UNIT/1 ML SQ SCH ×4 (08:48→21:52)
[2022-08-06] MEDS: TACROLIMUS 1 MG CAP PO SCH ×2 (08:51→21:41)
[2022-08-06] MEDS: FAMOTIDINE 20 MG TAB PO SCH ×2 (08:51→17:04)
[2022-08-06] MEDS: HYDRALAZINE HCL 25 MG TAB PO SCH ×3 (08:52→21:43)
[2022-08-06] MEDS: FINASTERIDE 5 MG TAB PO SCH (08:52)
[2022-08-06] MEDS: MYCOPHENOLATE MOFETIL 250 MG CAP PO SCH ×2 (08:52→21:42)
[2022-08-06] MEDS: ISOSORBIDE DINITRATE 20 MG TAB PO SCH ×2 (08:52→17:04)
[2022-08-06] MEDS: CARVEDILOL 12.5 MG TAB PO SCH ×2 (08:53→17:04)
[2022-08-06] MEDS: GABAPENTIN 300 MG CAP PO SCH ×2 (08:53→17:03)
[2022-08-06] MEDS: TAMSULOSIN HCL 0.4 MG CAP PO SCH (08:54)
[2022-08-06] MEDS: PREDNISONE 5 MG TAB PO SCH (08:54)
[2022-08-07] VITALS: BP 145/70
[2022-08-07] MEDS: LEVOTHYROXINE SODIUM 100 MCG TAB PO SCH (05:00)
[2022-08-07 06:52] LABS: BASOPHILS % 0.4 % (0.0-1.0); EOSINOPHILS % 0.5 % (0.0-6.0); HEMATOCRIT 42.5 % (38.2-49.6); HEMOGLOBIN 12.6 g/dL (14.0-18.0); LYMPHOCYTES # (AUTO) 0.9 (1.0-3.2); LYMPHOCYTES % 15.6 % (18.0-39.1); MEAN CORPUSCULAR HEMOGLOBIN 28.1 pg (28-32); MEAN CORPUSCULAR HGB CONC 29.6 g/dL (31-35); MEAN CORPUSCULAR VOLUME 94.7 fL (81-99); MONOCYTES # (AUTO) 0.6 (0.2-0.8); MONOCYTES % 10.2 % (4.4-11.3); NEUTROPHILS % 72.2 % (38.7-80.0); PLATELET COUNT 164 x10e3/uL (140-360); RED BLOOD COUNT 4.49 x10e6/uL (4.3-5.7); RED CELL DISTRIBUTION WIDTH 13.5 % (11.7-14.4)
[2022-08-07 07:14] LABS: CALCIUM 10.5 mg/dL (8.4-10.2); CREATININE, SERUM 1.2 mg/dL (0.72-1.25)
[2022-08-07] MEDS: INSULIN REGULAR, HUMAN 100 UNIT/1 ML SQ SCH ×4 (07:30→21:55)
[2022-08-07 07:34] VITALS: BP 190/72
[2022-08-07] MEDS: MYCOPHENOLATE MOFETIL 250 MG CAP PO SCH ×2 (09:05→21:48)
[2022-08-07] MEDS: FINASTERIDE 5 MG TAB PO SCH (09:05)
[2022-08-07] MEDS: ISOSORBIDE DINITRATE 20 MG TAB PO SCH ×2 (09:06→16:13)
[2022-08-07] MEDS: GABAPENTIN 300 MG CAP PO SCH ×2 (09:06→16:14)
[2022-08-07] MEDS: HYDRALAZINE HCL 25 MG TAB PO SCH ×3 (09:06→21:47)
[2022-08-07] MEDS: FAMOTIDINE 20 MG TAB PO SCH ×2 (09:06→16:14)
[2022-08-07] MEDS: CARVEDILOL 12.5 MG TAB PO SCH ×2 (09:06→16:14)
[2022-08-07] MEDS: TAMSULOSIN HCL 0.4 MG CAP PO SCH (09:06)
[2022-08-07] MEDS: PREDNISONE 5 MG TAB PO SCH (09:07)
[2022-08-07] MEDS: TACROLIMUS 1 MG CAP PO SCH ×2 (09:07→23:15)
[2022-08-07 11:11] VITALS: BP 105/62
[2022-08-07 15:28] VITALS: BP 153/70
[2022-08-07 20:00] VITALS: BP 141/68
[2022-08-07 21:00] VITALS: BP 141/68
[2022-08-07] MEDS ORDERED: TACROLIMUS 0.5 MG CAP PO SCH ×2 (21:00)
[2022-08-07] MEDS: TACROLIMUS 0.5 MG CAP PO SCH (21:00)
[2022-08-07] MEDS ORDERED: TACROLIMUS 1 MG CAP PO SCH (21:00)
[2022-08-07] MEDS: SODIUM CHLORIDE 0.45% 1,000 ML IV SCH (21:50)
[2022-08-08] VITALS (9 sets, daily range): BP systolic 137–165; BP diastolic 65–76
[2022-08-08 05:12] LABS: BASOPHILS % 0.4 % (0.0-1.0); EOSINOPHILS % 0.9 % (0.0-6.0); HEMATOCRIT 42.3 % (38.2-49.6); HEMOGLOBIN 12.9 g/dL (14.0-18.0); LYMPHOCYTES % 22.7 % (18.0-39.1); MEAN CORPUSCULAR HEMOGLOBIN 28.1 pg (28-32); MEAN CORPUSCULAR HGB CONC 30.5 g/dL (31-35); MEAN CORPUSCULAR VOLUME 92.2 fL (81-99); MONOCYTES # (AUTO) 0.5 (0.2-0.8); MONOCYTES % 11.7 % (4.4-11.3); NEUTROPHILS # (AUTO) 2.9 (2.1-6.9); NEUTROPHILS % 63.2 % (38.7-80.0); PLATELET COUNT 169 x10e3/uL (140-360); RED BLOOD COUNT 4.59 x10e6/uL (4.3-5.7); RED CELL DISTRIBUTION WIDTH 13.2 % (11.7-14.4)
[2022-08-08 05:33] LABS: ANION GAP 16.8 mmol/L (8-16); CALCIUM 9.9 mg/dL (8.4-10.2); CREATININE, SERUM 0.97 mg/dL (0.72-1.25); POTASSIUM 3.8 mmol/L (3.5-5.1)
[2022-08-08] MEDS: LEVOTHYROXINE SODIUM 100 MCG TAB PO SCH (05:41)
[2022-08-08] MEDS: TAMSULOSIN HCL 0.4 MG CAP PO SCH (08:06)
[2022-08-08] MEDS: PREDNISONE 5 MG TAB PO SCH (08:06)
[2022-08-08] MEDS: MYCOPHENOLATE MOFETIL 250 MG CAP PO SCH ×2 (08:06→20:32)
[2022-08-08] MEDS: FAMOTIDINE 20 MG TAB PO SCH ×2 (08:06→16:48)
[2022-08-08] MEDS: TACROLIMUS 1 MG CAP PO SCH ×2 (08:07→20:32)
[2022-08-08] MEDS: GABAPENTIN 300 MG CAP PO SCH (08:07)
[2022-08-08] MEDS: HYDRALAZINE HCL 25 MG TAB PO SCH ×3 (08:08→20:38)
[2022-08-08] MEDS: CARVEDILOL 12.5 MG TAB PO SCH ×2 (08:08→16:48)
[2022-08-08] MEDS: ISOSORBIDE DINITRATE 20 MG TAB PO SCH ×2 (08:09→16:47)
[2022-08-08] MEDS: FINASTERIDE 5 MG TAB PO SCH (08:26)
[2022-08-08] MEDS: INSULIN REGULAR, HUMAN 100 UNIT/1 ML SQ SCH ×4 (08:30→22:11)
[2022-08-08] MEDS: SODIUM CHLORIDE 0.45% 1,000 ML IV SCH (17:30)
[2022-08-08] MEDS: TACROLIMUS 0.5 MG CAP PO SCH (20:32)
[2022-08-08] MEDS ORDERED: TACROLIMUS 1 MG CAP PO SCH (21:00)
[2022-08-09 04:11] VITALS: BP 153/68
[2022-08-09] MEDS: LEVOTHYROXINE SODIUM 100 MCG TAB PO SCH (05:03)
[2022-08-09 07:42] VITALS: BP 144/67
[2022-08-09] MEDS: INSULIN REGULAR, HUMAN 100 UNIT/1 ML SQ SCH ×4 (08:19→21:08)
[2022-08-09] MEDS: MYCOPHENOLATE MOFETIL 250 MG CAP PO SCH ×2 (08:21→20:59)
[2022-08-09] MEDS: TACROLIMUS 1 MG CAP PO SCH ×2 (08:21→20:59)
[2022-08-09] MEDS: TAMSULOSIN HCL 0.4 MG CAP PO SCH (08:21)
[2022-08-09] MEDS: FINASTERIDE 5 MG TAB PO SCH (08:21)
[2022-08-09] MEDS: HYDRALAZINE HCL 25 MG TAB PO SCH ×3 (08:22→21:00)
[2022-08-09] MEDS: CARVEDILOL 12.5 MG TAB PO SCH ×2 (08:23→16:37)
[2022-08-09] MEDS: FAMOTIDINE 20 MG TAB PO SCH ×2 (08:23→16:37)
[2022-08-09] MEDS: PREDNISONE 5 MG TAB PO SCH (08:23)
[2022-08-09] MEDS: ISOSORBIDE DINITRATE 20 MG TAB PO SCH ×2 (08:25→16:37)
[2022-08-09] MEDS: SODIUM CHLORIDE 0.45% 1,000 ML IV SCH (10:14)
[2022-08-09] MEDS ORDERED: SODIUM CHLORIDE 0.9% 1000ML 1,000 ML ONE (10:19)
[2022-08-09 11:52] VITALS: BP 151/64
[2022-08-09 16:13] VITALS: BP 162/75
[2022-08-09 20:00] VITALS: BP 181/67
[2022-08-09] MEDS: TACROLIMUS 0.5 MG CAP PO SCH (20:59)
[2022-08-10] VITALS (7 sets, daily range): BP systolic 133–170; BP diastolic 64–74
[2022-08-10] MEDS: LEVOTHYROXINE SODIUM 100 MCG TAB PO SCH (05:20)
[2022-08-10] MEDS: INSULIN REGULAR, HUMAN 100 UNIT/1 ML SQ SCH ×4 (08:04→22:25)
[2022-08-10] MEDS: MYCOPHENOLATE MOFETIL 250 MG CAP PO SCH ×2 (08:50→20:42)
[2022-08-10] MEDS: TAMSULOSIN HCL 0.4 MG CAP PO SCH (08:50)
[2022-08-10] MEDS: FINASTERIDE 5 MG TAB PO SCH (08:50)
[2022-08-10] MEDS: TACROLIMUS 1 MG CAP PO SCH ×2 (08:51→20:42)
[2022-08-10] MEDS: ISOSORBIDE DINITRATE 20 MG TAB PO SCH ×2 (08:51→16:47)
[2022-08-10] MEDS: FAMOTIDINE 20 MG TAB PO SCH ×2 (08:51→16:48)
[2022-08-10] MEDS: CARVEDILOL 12.5 MG TAB PO SCH ×2 (08:52→16:47)
[2022-08-10] MEDS: PREDNISONE 5 MG TAB PO SCH (08:52)
[2022-08-10] MEDS: HYDRALAZINE HCL 25 MG TAB PO SCH ×3 (08:52→20:43)
[2022-08-10 10:05] LABS: ANION GAP 15.8 mmol/L (8-16); CALCIUM 9.7 mg/dL (8.4-10.2); POTASSIUM 3.8 mmol/L (3.5-5.1)
[2022-08-10] MEDS: TACROLIMUS 0.5 MG CAP PO SCH (20:43)
[2022-08-11] VITALS (8 sets, daily range): BP systolic 150–192; BP diastolic 65–75
[2022-08-11] MEDS: LEVOTHYROXINE SODIUM 100 MCG TAB PO SCH (05:07)
[2022-08-11] MEDS: SODIUM CHLORIDE 0.45% 1,000 ML IV SCH ×2 (05:07→06:13)
[2022-08-11] MEDS: HYDRALAZINE HCL 25 MG TAB PO SCH ×3 (05:08→21:27)
[2022-08-11] MEDS: INSULIN REGULAR, HUMAN 100 UNIT/1 ML SQ SCH ×4 (08:09→21:32)
[2022-08-11] MEDS: MYCOPHENOLATE MOFETIL 250 MG CAP PO SCH ×2 (08:16→21:26)
[2022-08-11] MEDS: FINASTERIDE 5 MG TAB PO SCH (08:16)
[2022-08-11] MEDS: TAMSULOSIN HCL 0.4 MG CAP PO SCH (08:17)
[2022-08-11] MEDS: PREDNISONE 5 MG TAB PO SCH (08:17)
[2022-08-11] MEDS: TACROLIMUS 1 MG CAP PO SCH ×2 (08:18→21:26)
[2022-08-11] MEDS: ISOSORBIDE DINITRATE 20 MG TAB PO SCH ×2 (08:18→16:58)
[2022-08-11] MEDS: CARVEDILOL 12.5 MG TAB PO SCH ×3 (08:19→16:59)
[2022-08-11] MEDS: FAMOTIDINE 20 MG TAB PO SCH ×2 (08:19→16:58)
[2022-08-11] MEDS: TACROLIMUS 0.5 MG CAP PO SCH (21:26)
[2022-08-12] VITALS: BP 171/66
[2022-08-12 04:00] VITALS: BP 178/70
[2022-08-12 05:00] LABS: BASOPHILS % 0.2 % (0.0-1.0); EOSINOPHILS % 0.7 % (0.0-6.0); HEMATOCRIT 39.6 % (38.2-49.6); HEMOGLOBIN 12.8 g/dL (14.0-18.0); LYMPHOCYTES # (AUTO) 1.5 (1.0-3.2); LYMPHOCYTES % 27.6 % (18.0-39.1); MEAN CORPUSCULAR HEMOGLOBIN 28.1 pg (28-32); MEAN CORPUSCULAR HGB CONC 32.3 g/dL (31-35); MONOCYTES # (AUTO) 0.5 (0.2-0.8); MONOCYTES % 9.2 % (4.4-11.3); NEUTROPHILS # (AUTO) 3.4 (2.1-6.9); NEUTROPHILS % 60.7 % (38.7-80.0); PLATELET COUNT 149 x10e3/uL (140-360); RED BLOOD COUNT 4.55 x10e6/uL (4.3-5.7); RED CELL DISTRIBUTION WIDTH 13.7 % (11.7-14.4)
[2022-08-12] MEDS: SODIUM CHLORIDE 0.45% 1,000 ML IV SCH (05:15)
[2022-08-12] MEDS: LEVOTHYROXINE SODIUM 100 MCG TAB PO SCH (05:15)
[2022-08-12 05:26] LABS: ANION GAP 13.9 mmol/L (8-16); CALCIUM 9.6 mg/dL (8.4-10.2); CREATININE, SERUM 0.88 mg/dL (0.72-1.25); POTASSIUM 3.9 mmol/L (3.5-5.1)
[2022-08-12] MEDS: INSULIN REGULAR, HUMAN 100 UNIT/1 ML SQ SCH (07:30)
[2022-08-12 07:38] VITALS: BP 171/68
[2022-08-12] MEDS: MYCOPHENOLATE MOFETIL 250 MG CAP PO SCH (08:04)
[2022-08-12] MEDS: TACROLIMUS 1 MG CAP PO SCH (08:05)
[2022-08-12] MEDS: CARVEDILOL 12.5 MG TAB PO SCH (08:05)
[2022-08-12] MEDS: PREDNISONE 5 MG TAB PO SCH (08:05)
[2022-08-12] MEDS: TAMSULOSIN HCL 0.4 MG CAP PO SCH (08:06)
[2022-08-12] MEDS: FINASTERIDE 5 MG TAB PO SCH (08:06)
[2022-08-12] MEDS: ISOSORBIDE DINITRATE 20 MG TAB PO SCH (08:06)
[2022-08-12] MEDS: FAMOTIDINE 20 MG TAB PO SCH (08:07)
[2022-08-12] MEDS: HYDRALAZINE HCL 25 MG TAB PO SCH (08:07)
[2022-08-12 08:11] VITALS: BP 171/68
[2022-08-13] MEDS ORDERED: LOSARTAN POTASSIUM 25 MG TAB PO SCH (09:00)
== END 2022-08-12 10:23 | disposition home health service (06) | DRG 871 ==
LOC: ER 20:03 → ERHOLD 22:26 → MERGE 22:26 → MED/SURG2 23:56
PROVIDERS: ADMIT Internal Medicine; ATTEND Internal Medicine
DX: A41.59 Other Gram-negative sepsis (principal); J18.9 Pneumonia, unspecified organism; N39.0 Urinary tract infection, site not specified; T86.11 Kidney transplant rejection; Z16.12 Extended spectrum beta lactamase (ESBL) resistance; E11.621 Type 2 diabetes mellitus with foot ulcer; L97.512 Non-pressure chronic ulcer of other part of right foot with fat layer exposed; E11.42 Type 2 diabetes mellitus with diabetic polyneuropathy; E11.22 Type 2 diabetes mellitus with diabetic chronic kidney disease; I12.9 Hypertensive chronic kidney disease with stage 1 through stage 4 chronic kidney disease, or unspecified chronic kidney disease; N18.30 Chronic kidney disease, stage 3 unspecified; E86.0 Dehydration; R31.9 Hematuria, unspecified; E11.51 Type 2 diabetes mellitus with diabetic peripheral angiopathy without gangrene; E78.2 Mixed hyperlipidemia; E11.69 Type 2 diabetes mellitus with other specified complication; E03.9 Hypothyroidism, unspecified; Z87.891 Personal history of nicotine dependence; Z20.822 Contact with and (suspected) exposure to COVID-19
CPT/HCPCS: 36415; 70450; 71045; 76700; 80048; 80053; 80197; 81001; 82550; 82553; 82948; 83605; 84484; 85025; 87040; 87086; 87186; 93005; 94799; 99252; 99284; J1817; J2185; J2543; J7030; J7507; J7512

== ENCOUNTER 2022-12-08 17:35 | Inpatient (IN) | payer MEDICARE, OTHER ==
[~2022-12-08] VITALS: Ht 175.3 cm; Wt 102.1 kg
[~2022-12-08 17:35] MED LIST changes: +ASPIRIN CHEW81 MG PO; +ATORVASTATIN CA10 MG PO; +FIBER 6 TABLE1000 MG; +FUROSEMIDE40 MG PO; +HYDRALAZINE HCL25 MG PO; +ISOSORBIDE DINI20 MG PO; +LEVOTHYROXINE50 MCG PO; +NEURONTIN300 MG PO; +NOVOLOG100 UNIT/1 SC; +TOPIRAMATE100 MG PO; +VITAMIN D3250 MCG BLADIN
[2022-12-08 18:16] LABS: BASOPHILS % 0.2 % (0.0-1.0); HEMATOCRIT 36.5 % (38.2-49.6); HEMOGLOBIN 11.4 g/dL (14.0-18.0); LYMPHOCYTES # (AUTO) 0.4 (1.0-3.2); LYMPHOCYTES % 5.5 % (18.0-39.1); MEAN CORPUSCULAR HEMOGLOBIN 28.8 pg (28-32); MEAN CORPUSCULAR HGB CONC 31.2 g/dL (31-35); MEAN CORPUSCULAR VOLUME 92.2 fL (81-99); MONOCYTES # (AUTO) 0.5 (0.2-0.8); MONOCYTES % 8.5 % (4.4-11.3); NEUTROPHILS # (AUTO) 5.3 (2.1-6.9); NEUTROPHILS % 83.4 % (38.7-80.0); PLATELET COUNT 125 x10e3/uL (140-360); RED BLOOD COUNT 3.96 x10e6/uL (4.3-5.7); RED CELL DISTRIBUTION WIDTH 14.2 % (11.7-14.4)
[2022-12-08 18:28] LABS: ALBUMIN 3.2 g/dL (3.5-5.0); ALBUMIN/GLOBULIN RATIO 0.8 (0.8-2.0); ANION GAP 14.7 mmol/L (8-16); CREATININE, SERUM 1.13 mg/dL (0.72-1.25); POTASSIUM 4.7 mmol/L (3.5-5.1)
[2022-12-08 18:38] LABS: CALCIUM 9.8 mg/dL (8.4-10.2)
[2022-12-08 19:15] LABS: ABG HCO3 28 mmol/L (22-26); ABG PCO2 43 mmHg (35-45); ABG PH 7.41 (7.35-7.45); ABG PO2 68 mmHg (80-105); ABG TCO2 29
[2022-12-08] MEDS ORDERED: ONDANSETRON HCL INJ 2MG/ML 2ML 2 MG/ML VIAL IV PRN (19:15)
[2022-12-08] MEDS ORDERED: Morphine 4mg INJECTION 4 MG/ML INJ IV PRN (19:15)
[2022-12-08] MEDS ORDERED: SODIUM CHLORIDE FLUSH 10 ML SYR INJ PRN (19:15)
[2022-12-08] MEDS: FUROSEMIDE INJ 10 MG/ML 4 ML VIAL IV SCH (19:18)
[2022-12-08] MEDS ORDERED: DEXTROSE 50% SYRINGE 50 ML IV PRN (19:45)
[2022-12-08 19:48] VITALS: PULSE 74; RESP 18; O2SAT 99
[2022-12-08] MEDS ORDERED: HYDRALAZINE HCL 20 MG/ML VIAL IV STA ×2 (19:53→21:18)
[2022-12-08] MEDS: INSULIN LISPRO 100 UNIT/1 ML 3ML VIAL SQ SCH (20:48)
[2022-12-08] MEDS: INSULIN GLARGINE 100 UNITS/ML VIAL SQ SCH (20:50)
[2022-12-08] MEDS: ATORVASTATIN 20 MG TAB PO SCH (20:55)
[2022-12-08 21:18] LABS: CLARITY,URINE SL CLOUDY (CLEAR); COLOR,URINE YELLOW (YELLOW); KETONES,URINE NEGATIVE (NEGATIVE); LEUKOCYTE ESTERASE ,URINE TRACE (NEGATIVE); NITRITE,URINE NEGATIVE (NEGATIVE); PROTEIN,URINE DIPSTICK 2+ (NEGATIVE); URINE UROBILINOGEN 2 mg/dL (0.2 - 1)
[2022-12-08 21:28] LABS: BACTERIA,URINE MODERATE /HPF
[2022-12-08] MEDS ORDERED: HYDRALAZINE HCL 20 MG/ML VIAL IV PRN (23:15)
[2022-12-08] MEDS ORDERED: ACETAMINOPHEN 325 MG TAB ONE (23:32)
[2022-12-08] MEDS ORDERED: ACETAMINOPHEN 325 MG TAB PO ONE (23:45)
[2022-12-08 23:52] VITALS: BP 173/70; PULSE 83; RESP 29; O2SAT 95
[2022-12-09] VITALS (19 sets, daily range): BP systolic 123–174; BP diastolic 52–105; PULSE 59–83; RESP 17–27; TEMP 97.7–100; O2SAT 90–100
[2022-12-09] MEDS: FUROSEMIDE INJ 10 MG/ML 4 ML VIAL IV SCH (05:57)
[2022-12-09 07:00] LABS: BASOPHILS % 0.3 % (0.0-1.0); EOSINOPHILS % 0.1 % (0.0-6.0); HEMOGLOBIN 11.6 g/dL (14.0-18.0); LYMPHOCYTES # (AUTO) 0.6 (1.0-3.2); MEAN CORPUSCULAR HEMOGLOBIN 28.6 pg (28-32); MEAN CORPUSCULAR HGB CONC 31.4 g/dL (31-35); MEAN CORPUSCULAR VOLUME 91.4 fL (81-99); MONOCYTES # (AUTO) 0.7 (0.2-0.8); MONOCYTES % 10.6 % (4.4-11.3); NEUTROPHILS # (AUTO) 5.4 (2.1-6.9); NEUTROPHILS % 77.7 % (38.7-80.0); PLATELET COUNT 145 x10e3/uL (140-360); RED BLOOD COUNT 4.05 x10e6/uL (4.3-5.7); RED CELL DISTRIBUTION WIDTH 14.4 % (11.7-14.4)
[2022-12-09 07:20] LABS: ALBUMIN 3.1 g/dL (3.5-5.0); ALBUMIN/GLOBULIN RATIO 0.8 (0.8-2.0); CALCIUM 9.7 mg/dL (8.4-10.2); CREATININE, SERUM 0.95 mg/dL (0.72-1.25)
[2022-12-09] MEDS: INSULIN LISPRO 100 UNIT/1 ML 3ML VIAL SQ SCH ×4 (07:30→22:06)
[2022-12-09] MEDS: TAMSULOSIN HCL 0.4 MG CAP PO SCH (08:17)
[2022-12-09] MEDS: FINASTERIDE 5 MG TAB PO SCH (08:17)
[2022-12-09] MEDS: FAMOTIDINE 20 MG TAB PO SCH ×2 (08:17→17:27)
[2022-12-09] MEDS: PREDNISONE 5 MG TAB PO SCH (08:17)
[2022-12-09] MEDS: MYCOPHENOLATE MOFETIL 250 MG CAP PO SCH ×3 (08:17→17:39)
[2022-12-09] MEDS: CARVEDILOL 12.5 MG TAB PO SCH ×2 (08:18→17:28)
[2022-12-09] MEDS: TACROLIMUS 1 MG CAP PO SCH (09:00)
[2022-12-09] MEDS ORDERED: SODIUM CHLORIDE 0.9% 1000ML 1,000 ML IV SCH (10:45)
[2022-12-09] MEDS ORDERED: SODIUM CHLORIDE 0.9% 250ML 250 ML ONE (10:56)
[2022-12-09 11:39] LABS: CHOL/HDL RATIO 2.1 (3.9-4.7)
[2022-12-09] MEDS: BUMETANIDE INJ 0.25MG/ML 4ML VIAL IV SCH ×2 (12:06→21:55)
[2022-12-09] MEDS: HYDRALAZINE HCL 25 MG TAB PO SCH ×2 (13:11→17:27)
[2022-12-09] MEDS: ATORVASTATIN 20 MG TAB PO SCH (21:55)
[2022-12-09] MEDS: INSULIN GLARGINE 100 UNITS/ML VIAL SQ SCH (22:07)
[2022-12-10] VITALS (8 sets, daily range): BP systolic 154–183; BP diastolic 56–85; PULSE 61–67; RESP 14–22; TEMP 97.3–98.4; O2SAT 94–100
[2022-12-10] MEDS: HYDRALAZINE HCL 25 MG TAB PO SCH ×4 (00:30→17:23)
[2022-12-10] MEDS: MYCOPHENOLATE MOFETIL 250 MG CAP PO SCH (02:17)
[2022-12-10 05:20] LABS: BASOPHILS % 0.2 % (0.0-1.0); EOSINOPHILS % 0.6 % (0.0-6.0); HEMATOCRIT 37.5 % (38.2-49.6); HEMOGLOBIN 11.8 g/dL (14.0-18.0); LYMPHOCYTES # (AUTO) 0.7 (1.0-3.2); LYMPHOCYTES % 11.1 % (18.0-39.1); MEAN CORPUSCULAR HEMOGLOBIN 28.8 pg (28-32); MEAN CORPUSCULAR HGB CONC 31.5 g/dL (31-35); MEAN CORPUSCULAR VOLUME 91.5 fL (81-99); MONOCYTES # (AUTO) 0.6 (0.2-0.8); MONOCYTES % 9.1 % (4.4-11.3); NEUTROPHILS # (AUTO) 4.9 (2.1-6.9); NEUTROPHILS % 75.6 % (38.7-80.0); PLATELET COUNT 148 x10e3/uL (140-360); RED CELL DISTRIBUTION WIDTH 14.5 % (11.7-14.4)
[2022-12-10 05:42] LABS: ALBUMIN 3.1 g/dL (3.5-5.0); ALBUMIN/GLOBULIN RATIO 0.7 (0.8-2.0); ANION GAP 14.7 mmol/L (8-16); CREATININE, SERUM 1.02 mg/dL (0.72-1.25); POTASSIUM 3.7 mmol/L (3.5-5.1)
[2022-12-10 06:32] LABS: CREATINE KINASE 26 IU/L (30-200)
[2022-12-10] MEDS: INSULIN LISPRO 100 UNIT/1 ML 3ML VIAL SQ SCH ×4 (07:30→22:01)
[2022-12-10] MEDS: FINASTERIDE 5 MG TAB PO SCH (09:00)
[2022-12-10] MEDS: TACROLIMUS 1 MG CAP PO SCH (09:00)
[2022-12-10] MEDS: FAMOTIDINE 20 MG TAB PO SCH ×2 (09:00→17:22)
[2022-12-10] MEDS: BUMETANIDE 1 MG TAB PO SCH ×2 (09:00→17:22)
[2022-12-10] MEDS: TAMSULOSIN HCL 0.4 MG CAP PO SCH (09:00)
[2022-12-10] MEDS: PREDNISONE 5 MG TAB PO SCH (09:00)
[2022-12-10] MEDS: CARVEDILOL 12.5 MG TAB PO SCH ×2 (09:00→17:22)
[2022-12-10] MEDS ORDERED: MYFORTIC360 MG PO (09:11)
[2022-12-10] MEDS ORDERED: EPINEPHRINE HCL 1:1000 1ML 1 MG/ML AMP ONE ×2 (09:35→13:01)
[2022-12-10] MEDS ORDERED: LIDOCAINE HCL 4% 50 ML BTL ONE ×2 (09:35→10:24)
[2022-12-10] MEDS ORDERED: BENZOCAINE/TETRACAINE/BUTAMBEN AERO SPRAY 56 GM CAN ONE (10:16)
[2022-12-10] MEDS ORDERED: SEVOFLURANE INHAL SOLN 250 ML PEN BTL ONE (13:01)
[2022-12-10] MEDS ORDERED: PROPOFOL IV EMULSION 10 MG/ML 20 ML VIAL ONE (13:01)
[2022-12-10] MEDS ORDERED: POVIDONE IODINE 0.05% 0.05 % ML PO ONE (13:01)
[2022-12-10] MEDS ORDERED: ETOMIDATE 2 MG/ML 10 ML INJ IV ONE (13:01)
[2022-12-10] MEDS ORDERED: EPHEDRINE SULFATE INJ 50 MG/ML VIAL ONE (13:01)
[2022-12-10] MEDS ORDERED: FENTANYL CITRATE/PF 100MCG/2 ML INJ ONE (14:04)
[2022-12-10] MEDS ORDERED: KETAMINE HCL INJ 50 MG/ML 10 ML VIAL ONE (14:04)
[2022-12-10] MEDS: MYCOPHENOLATE SODIUM PO SCH (17:25)
[2022-12-10] MEDS: ATORVASTATIN 20 MG TAB PO SCH (21:55)
[2022-12-10] MEDS: INSULIN GLARGINE 100 UNITS/ML VIAL SQ SCH (22:01)
[2022-12-11] VITALS (9 sets, daily range): BP systolic 152–167; BP diastolic 62–84; PULSE 62–69; RESP 14–22; TEMP 97.6–98.1; O2SAT 85–100
[2022-12-11] MEDS: HYDRALAZINE HCL 25 MG TAB PO SCH ×4 (01:27→21:30)
[2022-12-11] MEDS: MYCOPHENOLATE SODIUM PO SCH ×2 (06:00→17:15)
[2022-12-11] MEDS: INSULIN LISPRO 100 UNIT/1 ML 3ML VIAL SQ SCH ×4 (07:30→21:33)
[2022-12-11] MEDS: FINASTERIDE 5 MG TAB PO SCH (09:08)
[2022-12-11] MEDS: FAMOTIDINE 20 MG TAB PO SCH ×2 (09:08→17:07)
[2022-12-11] MEDS: CARVEDILOL 12.5 MG TAB PO SCH ×2 (09:08→17:08)
[2022-12-11] MEDS: TAMSULOSIN HCL 0.4 MG CAP PO SCH (09:08)
[2022-12-11] MEDS: PREDNISONE 5 MG TAB PO SCH (09:08)
[2022-12-11] MEDS: BUMETANIDE 1 MG TAB PO SCH ×2 (09:08→11:00)
[2022-12-11] MEDS: TACROLIMUS 1 MG CAP PO SCH (09:09)
[2022-12-11] MEDS ORDERED: ONDANSETRON HCL 4 MG ORAL DISINTEGRATING TAB PO PRN (13:00)
[2022-12-11 14:46] LABS: ALBUMIN 3.2 g/dL (3.5-5.0); ALBUMIN/GLOBULIN RATIO 0.7 (0.8-2.0); ANION GAP 12.8 mmol/L (8-16); CREATININE, SERUM 1.09 mg/dL (0.72-1.25); POTASSIUM 3.8 mmol/L (3.5-5.1)
[2022-12-11] MEDS: ATORVASTATIN 20 MG TAB PO SCH (21:25)
[2022-12-11] MEDS: INSULIN GLARGINE 100 UNITS/ML VIAL SQ SCH (21:32)
[2022-12-12] VITALS: BP 151/63; PULSE 65; RESP 18; TEMP 97.7; O2SAT 100
[2022-12-12 01:20] VITALS: BP 151/63; PULSE 65; RESP 18; TEMP 97.7; O2SAT 100
[2022-12-12] MEDS: MYCOPHENOLATE SODIUM PO SCH (05:59)
[2022-12-12] MEDS: HYDRALAZINE HCL 25 MG TAB PO SCH (05:59)
[2022-12-12] MEDS ORDERED: CEPHALEXIN500 MG PO (07:40)
[2022-12-12] MEDS ORDERED: ZITHROMAX500 MG PO (07:40)
[2022-12-12] MEDS ORDERED: BUMETANIDE1 MG PO (07:40)
[2022-12-12] MEDS ORDERED: BENZONATATE100 MG PO (07:40)
[2022-12-12] MEDS ORDERED: HYDRALAZINE HCL 20 MG/ML VIAL IV ONE (08:15)
[2022-12-12 08:30] VITALS: BP 150/72; PULSE 69; RESP 19; TEMP 98.1; O2SAT 100
[2022-12-12] MEDS: FAMOTIDINE 20 MG TAB PO SCH (08:42)
[2022-12-12] MEDS: BUMETANIDE 1 MG TAB PO SCH (08:42)
[2022-12-12] MEDS: PREDNISONE 5 MG TAB PO SCH (08:42)
[2022-12-12] MEDS: FINASTERIDE 5 MG TAB PO SCH (08:42)
[2022-12-12] MEDS: TAMSULOSIN HCL 0.4 MG CAP PO SCH (08:43)
[2022-12-12] MEDS: CARVEDILOL 12.5 MG TAB PO SCH (08:44)
[2022-12-12] MEDS: TACROLIMUS 1 MG CAP PO SCH (08:47)
[2022-12-12] MEDS: INSULIN LISPRO 100 UNIT/1 ML 3ML VIAL SQ SCH (08:55)
[2022-12-12] MEDS ORDERED: AZITHROMYCIN 250 MG TAB PO SCH (09:00)
[2022-12-12] MEDS ORDERED: CEFTRIAXONE 2 GM in SODIUM CHLORIDE 0.9% 100 ML IV SCH (09:00)
[2022-12-12] MEDS ORDERED: HYDRALAZINE HCL 25 MG TAB PO SCH (14:00)
== END 2022-12-12 09:28 | disposition home or self-care (01) | DRG 193 ==
LOC: ER 17:48 → ERHOLD 19:06 → ICU 23:44 → IMCU 12-09 09:10 → MED/SURG 12-09 10:15
PROVIDERS: ADMIT Internal Medicine; ATTEND Internal Medicine
PROC: 0BDB8ZX Extraction of Left Lower Lobe Bronchus, Via Natural or Artificial Opening Endoscopic, Diagnostic (ICD-10-PCS; 2022-12-10)
PROC: 0B9J8ZX Drainage of Left Lower Lung Lobe, Via Natural or Artificial Opening Endoscopic, Diagnostic (ICD-10-PCS; principal; 2022-12-10 10:13)
DX: J18.9 Pneumonia, unspecified organism (principal); I50.33 Acute on chronic diastolic (congestive) heart failure; J96.01 Acute respiratory failure with hypoxia; N18.6 End stage renal disease; Z94.0 Kidney transplant status; D84.821 Immunodeficiency due to drugs; I13.2 Hypertensive heart and chronic kidney disease with heart failure and with stage 5 chronic kidney disease, or end stage renal disease; N40.0 Benign prostatic hyperplasia without lower urinary tract symptoms; E78.5 Hyperlipidemia, unspecified; E11.51 Type 2 diabetes mellitus with diabetic peripheral angiopathy without gangrene; R53.81 Other malaise; E03.9 Hypothyroidism, unspecified; E11.40 Type 2 diabetes mellitus with diabetic neuropathy, unspecified; E11.22 Type 2 diabetes mellitus with diabetic chronic kidney disease; E66.9 Obesity, unspecified; I25.10 Atherosclerotic heart disease of native coronary artery without angina pectoris; Z89.422 Acquired absence of other left toe(s); Z87.891 Personal history of nicotine dependence; Z87.01 Personal history of pneumonia (recurrent); Z79.69 Long term (current) use of other immunomodulators and immunosuppressants; Z95.5 Presence of coronary angioplasty implant and graft; Z87.440 Personal history of urinary (tract) infections; Z83.3 Family history of diabetes mellitus; Z82.49 Family history of ischemic heart disease and other diseases of the circulatory system; Z79.4 Long term (current) use of insulin; Z79.899 Other long term (current) drug therapy; Z68.33 Body mass index [BMI] 33.0-33.9, adult
CPT/HCPCS: 31622; 36415; 36600; 71045; 71260; 80053; 80061; 81001; 82550; 82553; 82805; 82948; 83036; 83605; 83880; 84484; 85025; 86635; 87040; 87070; 87102; 87109; 87116; 87205; 87206; 87278; 87299; 87335; 87385; 87449; 88112; 88300; 88305; 88312; 93005; 93306; 94799; 99285; J0171; J0696; J1815; J1940; J2543; J7050; J7507; J7512

== ENCOUNTER → 2023-01-16 | Outpatient (CLI) | payer MEDICARE, OTHER ==
[~2023-01-16] MED LIST changes: +BENZONATATE100 MG PO; +BUMETANIDE1 MG PO; +CEPHALEXIN500 MG PO; +MYFORTIC360 MG PO; +ZITHROMAX500 MG PO
== END ==
LOC: CT 07:25
PROVIDERS: ATTEND Internal Medicine Critical Care Medicine
DX: Z09 Encounter for follow-up examination after completed treatment for conditions other than malignant neoplasm (principal)
CPT/HCPCS: 71250